=== PATIENT | male | born 1940 | race Caucasian/White ===

== ENCOUNTER → 2019-11-25 09:19 | Outpatient (BNVA) | payer MEDICARE, OTHER, SELFPAY | PROVIDERS: Family Provider Nurse Practitioner; PCP Nurse Practitioner; Visit Provider Nurse Practitioner | DX: M25.559 Pain in unspecified hip (principal); E78.2 Mixed hyperlipidemia; R91.1 Solitary pulmonary nodule | CPT/HCPCS: 73502; 80053; 80061 ==

== ENCOUNTER 2019-12-01 08:28 | Outpatient (CLI) | payer MEDICARE, OTHER, SELFPAY ==
--- NOTE | 2019-12-01 08:45 | CT_ITS ---
WS: [id number] CT CHEST TECHNIQUE: Noncontrast CT of the chest with coronal and sagittal reformatted images. CLINICAL INFORMATION: 7 mm lung nodule COMPARISON: CT 01/10/2019 and 12/01/2017. Multiple prior CTs from 2017 02/05/2017 and 12/31/2016. DLP: 864.[address] scans at [facility] use at least one of these dose optimization techniques: automat ed exposure control; mA and/or kV adjustment per patient size (includes targeted exams where dose is matched to clinical indication); or iterative reconstruction. FINDINGS: Stable subsegmental atelectasis in the right middle lobe with parenchymal scarring. Similar appearing subsegmental atelectasis with parenchymal scarring involving the lingula. Stable 7 mm noncalcified n odule adjacent to the right pericardium. Stable mild narrowing of the right middle lobe bronchus with calcified hilar lymph nodes. No mediastinal or hilar lymphadenopathy. Calcified hilar and paratracheal lymph nodes. Mild aortic ca lcification. Stable low-attenuation lesions in the liver likely hepatic cysts unchanged. Normal adren al glands. CT/CT chest wo con [id number] IMPRESSION: 1. 7 mm noncalcified nodule adjacent to the right pericardium is unchanged sin ce 2017. 2. Stable subsegmental atelectasis right middle lobe with adjacent middle lobe bronchus narrowing unchanged. 3. Mild aortic calcification. 4. Multiple small hepatic cysts are unchanged. 5. No significant interval changes since January 10, 2019
== END 2019-12-01 08:29 | disposition home or self-care (01) ==
PROVIDERS: Family Provider Nurse Practitioner; PCP Nurse Practitioner; Visit Provider Nurse Practitioner
DX: R91.1 Solitary pulmonary nodule (principal); I70.0 Atherosclerosis of aorta; K76.89 Other specified diseases of liver; J98.11 Atelectasis
CPT/HCPCS: 71250

== ENCOUNTER 2021-01-17 06:00 | Outpatient (CLI) | payer MEDICARE, SELFPAY | END 2021-01-17 06:01 | disposition home or self-care (01) | LOC: LAB 12-17 15:40 | PROVIDERS: PCP Nurse Practitioner; Visit Provider Nurse Practitioner | DX: E78.2 Mixed hyperlipidemia (principal) | CPT/HCPCS: 80053; 80061; 85025 ==

== ENCOUNTER 2021-04-04 08:51 | Outpatient (CLI) | payer MEDICARE, SELFPAY ==
[2021-04-04 09:24] VITALS: BMI 26.6
--- NOTE | 2021-04-04 09:24 | NMCV_ITS ---
NM gabe perf SPECT r/s* [id number] Humza Shelley Age: 80 Gender: M : 1940 Exam Date: 04/04/2021 10:00 Ordering Phys: Lula Rivera MD ([email or web address]) Technologist: TIERA Espino Exam Location: [facility] Indications: SHORTNESS OF BREATH STRESS TEST Please see separate stress test report in [facility] for full findings IMAGE PROTOCOL Rest/Stress 1 Exercise Day Radiopharmaceutical Dose (mCi) Administration Site Administered by Rest: Tc-99m IV TIERA Newman Sestamibi Stress:Tc-99m 32.7 IV TIERA Newman Sestamibi Rest: 04-Apr-2021 60 Discovery 630 Stress: 04-Apr-2021 15 Discovery 630 Radiopharmaceutical was injected at 87 % maximum heart rate. Images obtained in supine and prone position. SPECT RESULTS Technical Quality: Excellent Raw Data Analysis: Normal Image Corrections: No attenuation or motion correction applied Summed Stress Score: 18 Summed Rest Score: 15 Summed Difference Score: 7 PERFUSION FINDINGS Large area of fixed patchy decreased tracer uptake noted in basal to distal inferior and inferoseptal wall suggestive of old myocardial infarction versus scarring. There also appeared to be moderate area of inferoseptal moderate to severe reversibility suggestive of ischemia in the inferoseptal region of the right ventricle. Large area of reversibility in mid to distal anterior apical and septal severe reversibility suggestive of ischemia in the LAD territory noted. FUNCTIONAL RESULTS (calculated via Gated SPECT) Stress Image LV EF (%): 69 Stress EDV (mL):101 TID: 1 Stress ESV (mL):31 Rest Image LV EF (%): 55 FUNCTIONAL FINDINGS: There appeared to be mid to distal anterior apical septal and inferior wall hypokinesis. IMPRESSIONS There appeared to be large area of severe ischemia noted in mid to distal anterior and anteroseptal wall suggestive of lesion in LAD territory. 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 EKG segment will documented separately. Lula Rivera MD (Electronically Signed) Final Date: 04 April 2021 16:05 S
--- NOTE | 2021-04-04 09:24 | ECG_ITS ---
[facility] Test Date: 2021-04-04 Pat Name: Humza Shelley Department: Room: Gender: Male Grants Officer: Alisha Cherry : 1940 Requested By: Fredi Pizarro Order Number: [id number] Lizet MD: FREDI PIZARRO Interpretive Statements NAME OF STUDY: EXERCISE SESTAMIBI STRESS TEST INDICATION: Chest Pain, EXERCISE DATA: The patient was exercised by Hema protocol. Baseline heart rate was 48 beats per minute. Baseline blood pressure was 120/80 millimeters of mercury. Target heart rate was 142 beats per minute. Maximum heart rate achieved was 136, which was 95 % of the target heart rate. Maximum blood pressure was 181/99 millimeters of mercury. Total exercise time was 4 minutes 5 sec. Maximum METs achieved was 7.0 , maximum VO2 was 24.5. The reason for ending the test was maximum effort achieved. The patient complained of shortness of breath during the stress test, which then resolved at the end of the test. ELECTROCARDIOGRAM: BASELINE: Sinus rhythm, normal axis, right bundle branch block otherwise no significant ST-T ST changes noted. EXERCISE: At the peak exercise level, no significant ST-T changes suggestive of ischemia noted. PVCs were noted RECOVERY: During the recovery period, heart rate dropped appropriately. No significant ST-T changes in the recovery suggestive of ischemia noted. CONCLUSION: 1. Exercise capacity poor. 2. Heart rate response was appropriate. 3. Blood pressure response was appropriate. 4. Symptoms not suggestive of ischemia. 5. Electrocardiogram portion of the stress test was not suggestive of ischemia. 6. Nuclear scan will be documented separately. Please note that due to poor exercise capacity and under achievement of METs specificity and sensitivity of the EKG portion of the stress test will be low Electronically Signed On 04-23-2021 19:16:45 CDT by FREDI PIZARRO [id number]
[2021-04-04 11:12] VITALS: BP 160/73; PULSE 99
== END 2021-04-04 08:52 | disposition home or self-care (01) ==
LOC: CDL 08:54
PROVIDERS: PCP Nurse Practitioner; Visit Provider Internal Medicine Cardiovascular Disease
DX: R07.9 Chest pain, unspecified (principal); R06.02 Shortness of breath; I25.9 Chronic ischemic heart disease, unspecified
CPT/HCPCS: 78452; 93017; A9500

== ENCOUNTER → 2022-01-13 09:27 | Outpatient (BNVA) | payer MEDICARE, SELFPAY | PROVIDERS: PCP Nurse Practitioner; Visit Provider Nurse Practitioner | DX: I10 Essential (primary) hypertension (principal); R91.1 Solitary pulmonary nodule; R94.39 Abnormal result of other cardiovascular function study | CPT/HCPCS: 80053; 80061; 84443 ==

== ENCOUNTER 2022-02-19 07:36 | Outpatient (CLI) | payer MEDICARE, SELFPAY ==
--- NOTE | 2022-02-19 08:00 | CT_ITS ---
WS: [id number] CT CHEST TECHNIQUE: Contrast enhanced CT of the chest with coronal and sagittal reformatted images. CLINICAL INFORMATION: R91.1 - Solitary pulmonary nodule COMPARISON: December 01, 2019 DLP: 784.[address] scans at [facility] use at least one of these dose optimization techniques: automated e xposure control; mA and/or kV adjustment per patient size (includes targeted exams where dose is matc hed to clinical indication); or iterative reconstruction. FINDINGS: Stable 7 mm nodule in the RIGHT pericardial fat pad. Stable mild narrowing of the right middle lobe b ronchus with calcified hilar lymph nodes. No mediastinal or hilar lymphadenopathy. Calcified hilar an d paratracheal lymph nodes. Stable subsegmental atelectasis in the right middle lobe with parenchymal scarring. Slight subsegment al atelectasis with parenchymal scarring involving the lingula unchanged. Mild aortic calcification. Stable low-attenuation lesions in the liver presumed hepatic cysts unchang ed. Normal adrenal glands. Stable 8mm lymph node in the upper abdomen unchanged. CT/CT chest w con* [id number] IMPRESSION: 1. 7 mm nodule in the RIGHT pericardial fat pad unchanged since 2017. 2. Stable subsegmental atelectasis right middle lobe with adjacent middle lobe bronchus narrowing unchanged. 4. Multiple small hepatic cysts are unchanged. 5. No significant interval changes since December 01, 2019 and January 10, 2019
== END 2022-02-19 07:37 | disposition home or self-care (01) ==
PROVIDERS: PCP Nurse Practitioner; Visit Provider Nurse Practitioner
DX: R91.1 Solitary pulmonary nodule (principal); K76.89 Other specified diseases of liver; J98.11 Atelectasis
CPT/HCPCS: 71260; Q9967

== ENCOUNTER → 2022-03-07 08:53 | Outpatient (BNVA) | payer MEDICARE, SELFPAY | PROVIDERS: PCP Nurse Practitioner; Visit Provider Internal Medicine | DX: I10 Essential (primary) hypertension (principal); E78.2 Mixed hyperlipidemia; R06.09 Other forms of dyspnea; R94.39 Abnormal result of other cardiovascular function study | CPT/HCPCS: 99214 ==

== ENCOUNTER 2022-03-28 08:52 | Observation (INO) | payer MEDICARE, SELFPAY ==
[2022-03-28] VITALS (23 sets, daily range): BP systolic 140–180; BP diastolic 79–115; PULSE 60–87; RESP 17–24; TEMP 36.7–36.8; O2SAT 93–98; BMI 28.0
--- NOTE | 2022-03-28 06:00 | XACV_ITS ---
Exam Room: 2 Ht: 175 cm Wt: 86 kg BSA: 2.07 m2 Gender: Male : 1940 Any Known Allergies: Other Exam Priority: Routine Procedure(s): Procedure Description: Diagnostic procedure Procedure Description: Coronary IVUS Procedure Description: Coronary Angiography Diagnostic Cath Status: Elective Diagnostic Findings * INDICATION: Dyspnea on exertion/ abnormal stress test. * Left main artery: Distal left main artery has 40 to 50% stenosis. IVUS was performed that showed severe distal left main stenosis with minimal luminal area of 4.5 mm2. LAD: Severe 90 to 95% ostial LAD stenosis. Has slow flow in the distal segment. Left circumflex artery small in size. Patent. Ramus: Large sized vessel. No significant stenosis. RCA: Patent. * Coronary angiography shows right dominance. Interventional Findings * Procedure detail: We engaged left main artery with XB 3.0 guide catheter. IV heparin was administered to maintain ACT above 250 s. Run-through guidewire was advanced into the distal vessel. IVUS was performed that showed severe distal left main artery stenosis with MLA of 4.5 mm2. Ostial LAD also had critical stenosis. At this time guidewire was removed and final angiogram was performed. LAD slow flow had improved after wiring. Guide catheter was removed and patient left the Assistant Auditor in a stable condition. Conclusions 1. Left main artery: Distal left main artery has 40 to 50% stenosis. IVUS was performed that showed severe distal left main stenosis with minimal luminal area of 4.5 mm2. LAD: Severe 90 to 95% ostial LAD stenosis. Has slow flow in the distal segment. Left circumflex artery small in size. Patent. Ramus: Large sized vessel. No significant stenosis. RCA: Patent. 2. Severe distal left main artery stenosis and ostial LAD stenosis. Recommendations * Will recommend heart team discussion. Patient will have appointment with CT surgery team next week for CABG discussion.. * Continue aspirin. * High intensity statin therapy. * Aggressive risk factor modification. * modification. * Outpatient cardiology follow-up in 4-week. Interventional RX Recommendation: CABG Diagnostic RX Recommendation: CABG Anticoagulation: Heparin Pressures Phase:Rest AO : 119 / 85 ( 103 ) @ 8:37:00 AM 142 / 78 ( 106 ) @ 8:53:00 AM 110 / 67 ( 86 ) @ 8:58:00 AM Clinical Evaluation EBL: 5mL-10mL Procedural Details Procedure Consent Obtained. Pre-Procedure Time Out. Identified patient by full name and date of as verbalized by the patient/guarantor. Does the consent match the physician's order: Yes. Accurate & Complete Informed Consent: Yes. Inpatient/Outpatient History & Physical on Chart: Yes. If H&P is completed, is and addenduem needed: No. Visualize and Verify Site with Patient/Guarantor: N/A. Relevant Radiology Images available: Yes. The risks, benefits, and alternatives of sedation and/or procedure were discussed by physician. The patient agrees to continue. Procedure started. [facility] Clinical Fraility Score: 3: Managing Well. Assistant Auditor Indications: Worsening Angina. Chest Pain Symptom Assessment: Typical Angina Symptoms. Cardiovascular Instability: No. Correct patient, site and procedure confirmed by cath team. PERRLA. Strong, equal hand dermatologist managing partner bilaterally. Lungs clear x 5 lobes. IV Site on Arrival: 18 gauge in the right anticubital. IV Fluids: 0.9% NaCl at KVO. 0 mL infused prior to director of cath lab. Pre Procedural Pulses: bilateral dorsalis pedis was 3+. Pre Procedural Pulses: bilateral posterior tibial was 3+. Pre Procedural Pulses: bilateral radial was 3+. Oxygen started at 2liters/min via nasal canula. right groin was prepped with chloroprep then draped in the usual sterile fashion. right radial was prepped with chloroprep then draped in the usual sterile fashion. Physician notified. Baseline sample Acquired. HR: 78 BPM. Equipment: 6F - Radial. Cardiac Cath Pack. ACIST Manifold Kit Model BT 2000. Heparinized Saline (2 units/mL), 1000 mL bag. Physician arrived. Physician scrubbed in. Immediate Pre-Procedure Time Out. Correct Patient: Yes; Correct Procedure: Yes; Correct Site: Yes; Correct Patient Position: Yes; Correct Supplies: Yes; Dried Flammable Prep: Yes; Blood Products Available: N/A. Lidocaine 1% infiltrated to the right radial. Arterial access obtained. A 5 wolof TIG catheter in over the standard wire. Multiple views taken of left coronary artery. Catheter redirected to the RCA. Multiple views taken of right coronary artery. Catheter removed over the 0.035 260cm stiff angled glidewire. 6 wolof XB 3 guide catheter was inserted over the wire. Runthrough guidewire was advanced through the guide catheter to lesion in the Ostial LAD. IVUS catheter in over the Runthrough guidewire to the LAD. IVUS images of the Ostial LAD obtained. IVUS catheter out over the Runthrough guidewire. Dr. Rowland scrubbed out to view IVUS run. Dr. Rowland scrubbed back in. IVUS catheter in over the Runthrough guidewire to the LAD. IVUS images of the Ostial LAD obtained. IVUS catheter out over the Runthrough guidewire. Cine of the LAD performed. Guide catheter out. Dr. Rowland scrubbed out. A TR Band was successful obtaining hemostatsis at the Right Radial artery insertion site. TR band placed. Hemostasis obtained. Post Procedure: Pulses reassessed and unchanged. PERRLA. Strong, equal hand dermatologist managing partner bilaterally. No VTE prophylaxis required. Medication's Wasted: Lidocaine 1% = 3 mL. Medication's Wasted: Nitro = 49.8 mg. Medication's Wasted: Heparin = 4000 units. Total IV fluids: 58 mL. Post-op diagnosis: Critical Ostial LAD stenosis, Mod-Severe Distal LM stenosis. Complications: none. Estimated blood loss: 5mL-10mL. Responsiveness - Normal response to verbal stimuli; alert and oriented, PERRLA. Airway - Unaffected, no intervention required; spontaneous ventilation. Circulation: W/N/L, pulses unchanged. Nausea/Vomiting: No. Procedure completed. Patient transferred by wheelchair to ICU. Vital chart was stopped. Access Site Site: Right Radial artery Sheath Size: 6 Fr Hemostasis Method: TR Band Hemostasis Success: Successful Procedure Medications Start: 7:30 AM Stop: 7:30 AM Medication: Versed Amount: 1 mg Route: I.V. Start: 7:30 AM Stop: 7:30 AM Medication: Fentanyl Amount: 50 mcg Route: I.V. Start: 7:35 AM Stop: 7:35 AM Medication: Nitrogylcerin Amount: 200 mcg Route: I.A. Start: 7:37 AM Stop: 7:37 AM Medication: Heparin Amount: 5000 units Route: I.V. Start: 7:51 AM Stop: 7:51 AM Medication: Heparin Amount: 2000 units Route: I.V. Start: 8:00 AM Stop: 8:00 AM Medication: Heparin Amount: 1000 units Route: I.V. I, the attending physician, have reviewed and verified all procedure medications. Yes, all medications given per verbal order History/Risk Factors Hypertension: Yes Dyslipidemia: Yes Peripheral Arterial Disease (PAD): No Myocardial Infarction (RI): No Obesity: No Renal Disease: No Tobacco Use: Never Prior Interventions PCI: No CABG: No Valve Surgery: No Report Signatures Finalized by Mark Rowland MD on 04/02/2022 10:18 AM
[2022-03-28 07:07] LABS: Anion Gap 15.3 (5-19); Blood Urea Nitrogen 17 mg/dL (8-23); Calcium 10.2 mg/dL (8.5-10.5); Carbon Dioxide 24 mmol/L (22-29); Chloride 102 mmol/L (98-107); Glucose 147 mg/dL (65-115); Osmolality Calculated 288 mOsm/kg (285-295); Potassium 4.3 mmol/L (3.5-5.1); Sodium 137 mmol/L (136-145)
--- NOTE | 2022-03-28 07:30 | W.PM.OPSUD ---
Surgery/Procedure H&P Update DATE OF PROCEDURE: March 28, 2022 DATE H&P PERFORMED: 03/07/22 H&P UPDATE INFORMATION: I have reviewed H&P completed within last 30 days, I have examined patient prior to procedure and No changes to prior documentation PREOP DIAGNOSIS: Dyspnea on exertion/ abnormal stress test PRIMARY INDICATION FOR PROCEDURE: Dyspnea on exertion/ abnormal stress test PLANNED PROCEDURE: Operation Date: 03/28/22 07:00 Proposed Procedures p Left Cardiac Catheterization 38989,R94.39(Left) - Mark Rowland M.D Possible percutaneous coronary intervention PATIENT REASSESSED PRIOR TO SEDATION, WITH NO CHANGE NOTED: Yes PHYSICAL EXAM: alert, oriented x 3, clear to auscultation bilaterally and regular rate & rhythm AIRWAY EVAL/ANESTHESIA PLAN: ASA III, Local Anesthesia, Risks, benefits & alternatives of sedation and/or procedure discussed and Patient agrees to continue as planned ADDITIONAL INFORMATION: Moderate sedation
[2022-03-28 07:33] LABS: Basophils % 0.2 %; Hematocrit 49.9 % (42.0-52.0); Hemoglobin 16.4 g/dL (11.7-16.6); Lymphocytes # 0.9 10^3/uL (0.8-4.8); Lymphocytes % 8.2 %; Mean Corpuscular HGB Conc 32.9 g/dL (30.0-36.0); Mean Corpuscular Hemoglobin 29.5 pg (28.0-34.0); Mean Corpuscular Volume 89.7 fl (80-94); Mean Platelet Volume 10.3 fL (7.4-10.4); Monocytes # 0.2 10^3/uL (0.2-0.9); Monocytes % 1.6 %; Neutrophils # 9.48 10^3/uL (1.8-7.7); Neutrophils % 89.4 %; Nucleated Red Blood Cells % 0 %; Platelet Count 254 10^3/cmm (130-400); Red Blood Count 5.56 10^6/uL (4.1-5.3); White Blood Count 10.6 10^3/uL (4.0-10.0)
--- NOTE | 2022-03-28 08:30 | PC.NURSE ---
From labor operator. received pt from labor operator via wheelchair. Pt has a 25 mls of air in the TR band. no hematoma, swelling or bleeding. neurovascular check, radial artery palpable +3. pt denies any pain or discomfort right now. vs monitored. instructed pt on acitvity restrictions on his right arm such as no pulling, pushing orlifting any weights with his right arm. call light provided. family at bedside.
--- NOTE | 2022-03-28 09:23 | USCV_ITS ---
Humza Shelley Age: 81 Gender: M : 1940 Exam Date: 03/28/2022 09:45 Ordering Phys: Mark Rowland M.D ([email or web address]) Technologist: SHEA [place] [facility] [place]: dyspnea on exertion BP: 176 / 97 HR: 81 Rhythm: Sinus Technical Quality: Adequate MEASUREMENTS (Male / Female) Normal Values 2D ECHO LV Diastolic Diameter PLAX 4.5 cm 4.2 - 5.9 / 3.9 - 5.3 cm LV Systolic Diameter PLAX 2.7 cm IVS Diastolic Thickness 0.9 cm 0.6 - 1.0 / 0.6 - 0.9 cm IVS Systolic Thickness 1.6 cm LVPW Diastolic Thickness 1.4 cm 0.6 - 1.0 / 0.6 - 0.9 cm LVPW Systolic Thickness 1.7 cm LVOT Diameter 2.0 cm LV Ejection Fraction 2D Teich 69.5 % LV Ejection Fraction MOD 2C 72.3 % LV Ejection Fraction 2C AL 71.1 % LA Diameter 3.3 cm LA Width 3.1 cm LA Height 4.1 cm RA Width 3.2 cm RA Height 4.2 cm Aorta at Sinotubular Diameter 2.4 cm M-MODE Aortic Annulus Diameter 2.9 cm LA Ao Ratio MM 1.1 MV E Point Septal Separation 0.6 cm DOPPLER AV Peak Velocity 186.3 cm/s LVOT Peak Velocity 122.0 cm/s AV Area Cont Eq vti 2.6 cm squared AV Area Cont Eq pk 2.1 cm squared MV Peak Velocity 114.0 cm/s MV Area PHT 5.0 cm squared Mitral E to A Ratio 0.6 MV E' Velocity 40.0 cm/s Mitral E to MV E' Ratio 9.4 Mitral E to LV E' Lateral Ratio 8.5 Mitral E to LV E' Septal Ratio 10.5 TR Peak Velocity 181.5 cm/s TR Peak Gradient 13.2 mmHg TR Mean Velocity 188.1 cm/s TR Mean Gradient 14.0 mmHg TR Velocity Time Integral 59.6 cm TV Peak E Velocity 48.0 cm/s Right Atrial Pressure 8.0 mmHg Pulmonary Artery Systolic Pressu 21.2 mmHg PV Peak Velocity 108.0 cm/s RV Acceleration Time 0.1 s RV Ejection Time 0.2 s RV AcT/ET 0.4 FINDINGS Left Ventricle Left ventricle is normal in size. LV systolic function is normal with EF of 55 to 60%. No regional wall motion abnormalities are seen. Grade 1 diastolic dysfunction. Right Ventricle Normal in size and function Right Atrium Normal in size Left Atrium Normal in size Mitral Valve Structurally normal mitral valve. Trace mitral regurgitation. Aortic Valve Aortic valve is thickened. No significant aortic stenosis or regurgitation. Moderate aortic regurgitation. Tricuspid Valve Trace tricuspid regurgitation. Insufficient TR jet to calculate RVSP. Pulmonic Valve Not well-visualized Pericardium Normal Aorta Normal in size IVC CONCLUSIONS LV systolic function is normal with EF of 55-60%. No regional wall motion abnormalities are seen. Grade 1 diastolic dysfunction. Trace mitral regurgitation. Aortic valve is thickened. Moderate aortic regurgitation. Trace tricuspid regurgitation. No comparison studies are available Mark Rowland MD (Electronically Signed) Final Date: 02 April 2022 09:38 S
[2022-03-28] MEDS: metoprolol tartrate 50 mg Tablet PO (09:43)
[2022-03-28] MEDS: amlodipine 5 mg Tablet PO (09:43)
[2022-03-28] MEDS: sodium chloride 0.9% 1,000 ML 100 ML IV (09:45)
--- NOTE | 2022-03-28 11:49 | P.SS_ITS ---
Short Stay Summary Providers Date of Admit/Discharge: 03/31/22 Attending Provider: Mark Rowland M.D Primary Care Provider: SENDY Hunter Chief Complaint: R94.39 HPI History of Present Illness Humza Shelley is a 81 year old male with past medical history of hypertension and hyperlipidemia who has been following with cardiology clinic for chest discomfort episodes and dyspnea on exertion.? He had stress test done last year which showed a large area of ischemia in LAD territory.? He says that was not followed up.? Patient has significant dyspnea on exertion and gets lower extremity edema. Review of Systems Const: Reports: fatigue Card: Reports: swelling of feet/ankles (minimal) and dyspnea on exertion; Denies: chest pain, palpitations, irregular heart rhythm, edema, lightheadedness, syncope, pre-syncope, orthopnea or leg pain with exertion Resp: Denies: dyspnea, productive cough or wheezing Musc: Reports: back pain; Denies: neck pain or joint pain Neuro: Denies: headache(s) or dizziness Psych: Denies: anxiety, depression, suicidal ideation or homicidal ideation Carlito/Lymph: Reports: easy bruising and easy bleeding Home Meds/Allergies Home Medications and Allergies Home Medications Medication Instructions Recorded Confirmed Type albuterol sulfate 90 mcg/actuation 2 puff inhalation QID 11/25/19 03/28/22 History aerosol inhaler (ProAir HFA) clobetasol 0.05 % topical ointment 1 applic topical BID 03/11/21 03/28/22 History garlic 300 mg PO DAILY 09/20/21 03/28/22 History Allergies Allergy/AdvReac Type Severity Reaction Status Date / Time Penicillins Allergy rash Verified 03/28/22 06:47 wasp venom Allergy Unknown Unknown Uncoded 03/28/22 06:47 shellfish Allergy itching.cou Uncoded 03/28/22 06:47 gh PFSH Acute PFSH: Medical History Hx of bee sting allergy Hypertension Mixed hyperlipidemia Solid nodule of lung 6 mm to 8 mm in diameter Stable 7 mm nodule or lymph node within the right epipericardial fat December 2017 Surgical History History of lipoma Removal back and neck Family History Other CVA (cerebrovascular accident due to intracerebral hemorrhage) Heart disease Denies family history of Bleeding disorder Social History Smoking and tobacco status: never smoked Second hand smoke exposure: No Smoking risk assessment/counseling performed?: No Alcohol intake: never Desire information about alcohol rehabilitation?: No Counseling given: No Desire information about substance/drug rehabilitation?: No Counseling given: No Caregiver/support person: No Lives independently: Yes Household members: family Housing: House Marital status: service: No Current occupational status: employed History of recent travel: No Current gender identity: Male Vitals/I&O/Wt Last Vital Signs Temp 98.0 F 03/28/22 06:45 Pulse 75 03/28/22 11:00 Resp 18 03/28/22 11:00 BP 147/87 03/28/22 11:00 Pulse Ox 96 03/28/22 11:00 O2 Del Method 03/28/22 11:00 03/27/22 03/28/22 03/28/22 22:59 06:59 14:59 Intake Total 236 / 236 Output Total 450 / 450 Balance -214 / -214 Weight last 48 hrs Weight 190 lb Physical Exam Narrative: GENERAL: Patient is alert, awake and oriented x3. [] NECK: No jugular vein distension. [] HEENT: No cyanosis. No icterus. No pallor. [] HEART: Regular S1 and S2. No murmur, rub or gallop. [] LUNGS: Clear to auscultate bilaterally. [] ABDOMEN: Soft, nontender and nondistended. Positive bowel sounds. No guarding, rebound or tenderness. [] CENTRAL NERVOUS SYSTEM: Grossly nonfocal. [] EXTREMITIES: Lower extremities with 1+ edema bilaterally. Pulses palpable in the lower extremities, both dorsalis pedis and posterior tibial. [] Hospital Course Hospital Course Coronary angiogram was performed that showed critical 95% ostial LAD stenosis. On IVUS, distal left main artery had severe stenosis as well. There was very slow flow in the distal LAD however after wiring for IVUS, flow improved. Patient stayed stable post procedure. Patient blood pressure was elevated. We started him on amlodipine and metoprolol. Patient will be seen by CT surgery as outpatient. We will try to set up appointment with Dr. Mckee as soon as possible. He is already informed. 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 echo complete * [id number] Routine Ultrasound 03/28/22 09:23 Taken Discharge Plan Discharge Patient Disposition: Home Condition: Stable Prescriptions: New amlodipine 5 mg Tablet 5 mg PO DAILY Qty: 90 3RF metoprolol tartrate 50 mg Tablet 50 mg PO BID@0900,2100 Qty: 120 2RF Continued albuterol sulfate [ProAir HFA] 90 mcg/actuation HFA aerosol inhaler 2 puff INHALATION QID clobetasol 0.05 % ointment 1 applic topical BID Rx Instructions: to leg as needed no more than 3 wks/mo garlic Tablet 300 mg PO DAILY nitroglycerin 0.4 mg tablet, sublingual 0.4 mg sublingual Q5M PRN (Reason: chest pain) Qty: 25 0RF Rx Instructions: do not exceed 3 doses per episode aspirin [Adult Low Dose Aspirin] 81 mg tablet,delayed release (DR/EC) 81 mg PO DAILY Qty: 90 3RF rosuvastatin 20 mg tablet 20 mg PO DAILY Qty: 90 3RF diphenhydramine HCl [Benadryl] 25 mg capsule 25 mg PO DIRECTED Qty: 2 0RF Rx Instructions: Take 2 tabs at 6am on Discontinued prednisone 50 mg tablet 50 mg PO DIRECTED Qty: 3 0RF Rx Instructions: Take one tab at 6pm on , one tab at 12(midnight) on , one tab at 6am on Discharge Orders: Discharge Order (Routine); Ordered 03/28/22 Ordered By: Mark Rowland Referrals: Mark Rowland M.D [Physician] - 1 month Angel Mckee MD [Physician] - (You will have a visit with the cardiothoracic surgeon on at 0830.) Blossom Rapp FNP [Nurse Practitioner] - 7-10 days (You will have an appointment at the Heart care services on ThursdayApr 04 at 1115.) Discharge Diet: Cardiac Discharge Activity: Increase activity as tolerated Patient Instructions: Metoprolol (By mouth), Amlodipine (By mouth), CABG (Coronary Artery Bypass Graft) (DC), Post Angiogram Home Care Instructions Activity Restrictions/Additional Instructions: Please do not lift more than 5 pounds of weight for the next 5 days Attestations Medical Necessity Statement*: Care not expected to cross 2 midnights. Patient came as an outpatient for coronary angiogram and is getting discharged postprocedure. Time Spent in Patient Care*: greater than 30 min Quality Metrics Clinical Quality Measures: [ No reported AMI, CVA or VTE this stay ] Coding Level of Care Code Acute User Interface Developer for Kim Wright
--- NOTE | 2022-03-28 11:51 | PC.NURSE ---
TR band removal All air out in tr band. No hematoma, swelling or bleeding. radial pulse is palpable. dr moran family at bedside. discussion regarding possible cabg. outpt follow-up w/surgeon. family and pt verbalizes understanding.
--- NOTE | 2022-03-28 12:40 | PC.NURSE ---
pt wants a meds to bed called
--- NOTE | 2022-03-28 13:21 | PC.CHAP ---
Pastoral Care Encounter/Spiritual Assessment Type of Contact [] Declined job training supervisor visit [] Patient/Family/Request visit [] Outpatient visit [] Follow-up visit [] Physician referral [] Code/Alert [x] Routine visit [] Staff referral [] Actively dying [] Patient sleeping [] Family support [] [] Out of room [] Palliative care [] [] Receiving care in room [] Pre-surgical visit [] Trauma [] Long length of stay [x] ICU visit [] Other: Relational/Emotional Strength [] Patient feels connected with others/family/visitors/staff [] Distress [] Loneliness/isolation [] Abandonment Spirituality of Patient [] Person of Kristine [] Attends Nondenominational of their Kristine [] Believes in Prayer [] Reads Bible or Uatsdin materials [] There are Spiritual issues to be addressed Senior Project Coordinator Interventions [x] Prayer [] Active listening [] Non-anxious presence [] Spiritual/emotional support [] Crisis/trauma care [] Spiritual counseling [] Bereavement support [] Provided bereavement packet [] Provided Bible/devotional materials [] Provided toy/stuffed animal, coloring book to patient or family member [] Provided Communion [] Anointing/[place] [] Salvation [x] Completed spiritual assessment [] Other: Impact on Illness or Injury [] Angry [] Fearful [] Anxious [] Often cries [] Exhaustion [] Unable to work [] Unable to attend mandaen [] Unable to walk/stand [] Unable to read [] Unable to drive [] Unable to eat/drink [] Unable to sleep [] Unable to be with family [] Patient intubated [] Other: Summary Time spent with patient
== END 2022-03-28 14:06 | disposition home or self-care (01) ==
LOC: ICU 08:52
PROVIDERS: Admitting Provider Internal Medicine; PCP Nurse Practitioner; Visit Provider Internal Medicine
DX: I25.10 Atherosclerotic heart disease of native coronary artery without angina pectoris (principal); R94.39 Abnormal result of other cardiovascular function study; I10 Essential (primary) hypertension; E78.5 Hyperlipidemia, unspecified; E78.2 Mixed hyperlipidemia
CPT/HCPCS: 36415; 80048; 85025; 92978; 93306; 93454; 94760; 96360; 99152; 99153; C1753; C1769; C1887; C1894; G0378; J1644; J2250; J3010; J3490; J7030; Q0163; Q9967

== ENCOUNTER → 2022-04-01 14:00 | Outpatient (BNVA) | payer MEDICARE, SELFPAY | PROVIDERS: PCP Nurse Practitioner; Visit Provider Thoracic Surgery (Cardiothoracic Vascular Surgery) | DX: I25.10 Atherosclerotic heart disease of native coronary artery without angina pectoris (principal); I25.84 Coronary atherosclerosis due to calcified coronary lesion; I10 Essential (primary) hypertension | CPT/HCPCS: 99203; 99205 ==

== ENCOUNTER → 2022-04-04 12:09 | Outpatient (BNVA) | payer MEDICARE, SELFPAY | PROVIDERS: PCP Nurse Practitioner; Visit Provider Nurse Practitioner Family | DX: I25.10 Atherosclerotic heart disease of native coronary artery without angina pectoris (principal); I25.84 Coronary atherosclerosis due to calcified coronary lesion | CPT/HCPCS: 80048; 99213; 99214 ==

== ENCOUNTER 2022-04-10 06:48 | Outpatient (CLI) | payer MEDICARE, SELFPAY ==
--- NOTE | 2022-04-10 07:00 | USR_ITS ---
PROCEDURE INFORMATION: Exam: US Unlisted Ultrasound Procedure Exam date and time: 04/10/2022 7:23 AM Age: 81 years old Clinical indication: Screening exam; Additional info: Cad TECHNIQUE: Imaging protocol: Unlisted ultrasound procedure (eg, diagnostic, interventional). COMPARISON: No relevant prior studies available. FINDINGS: Procedural imaging: Focused ultrasound examination of the right great saphenous vein demonstrates a compressible vein measuring 2 mm in the proximal thigh, 2 mm in the midthigh, 2 mm in the distal thigh, and 2 mm in the proximal lower leg. US/CV venous mapping [facility] [id number] IMPRESSION: Patent right great saphenous vein with diameter as described above.
== END 2022-04-10 06:49 | disposition home or self-care (01) ==
LOC: RAD 06:50
PROVIDERS: PCP Nurse Practitioner; Visit Provider Thoracic Surgery (Cardiothoracic Vascular Surgery)
DX: Z01.810 Encounter for preprocedural cardiovascular examination (principal); R94.39 Abnormal result of other cardiovascular function study
CPT/HCPCS: 93970

== ENCOUNTER 2022-04-15 14:12 | Inpatient (IN) | payer MEDICARE, SELFPAY ==
[2022-04-10 09:19] VITALS: BMI 28.5
[2022-04-10 10:30] LABS: Add Urine Microscopic? NO; Charge for UA Resulting for Rev
[2022-04-10 10:37] LABS: Bilirubin Urine Neg (Negative); Blood Urine Neg (Negative); Glucose Urine UA Norm (Normal); Ketones Urine Negative (Negative); Leukocyte Esterase Urine Negative (Negative); Nitrate Urine Negative (Negative); Protein Urine Neg (Negative); Urine Appearance Clear (CLEAR); Urine Color Yellow (Yellow); Urobilinogen Urine Norm (Negative); pH Urine 7 (5-7)
[2022-04-10 10:37] LABS: Basophils # 0.1 10^3/uL (0.0-0.1); Basophils % 0.4 %; Eosinophils # 0.3 10^3/uL (0.0-0.8); Eosinophils % 2.8 %; Hematocrit 47.4 % (42.0-52.0); Hemoglobin 15.2 g/dL (11.7-16.6); Lymphocytes # 1.2 10^3/uL (0.8-4.8); Lymphocytes % 10.5 %; Mean Corpuscular HGB Conc 32.1 g/dL (30.0-36.0); Mean Corpuscular Hemoglobin 29.6 pg (28.0-34.0); Mean Corpuscular Volume 92.2 fl (80-94); Mean Platelet Volume 10.3 fL (7.4-10.4); Monocytes # 0.8 10^3/uL (0.2-0.9); Monocytes % 7.1 %; Neutrophils # 8.98 10^3/uL (1.8-7.7); Neutrophils % 78.2 %; Nucleated Red Blood Cells % 0 %; Platelet Count 236 10^3/cmm (130-400); Red Blood Count 5.14 10^6/uL (4.1-5.3); Red Cell Distribution Width 13.1 % (12.1-15.1); White Blood Count 11.5 10^3/uL (4.0-10.0)
--- NOTE | 2022-04-10 10:44 | SUR.PREOP ---
chlorhexidine mouthwash and bactroban nasal ointment called to [facility] in and patient instructed to pick and shovel man rx
[2022-04-10 10:45] LABS: INR 0.99 (0.8-1.2); Partial Thromboplastin Time 28.9 SECONDS (23.9-36.7)
--- NOTE | 2022-04-10 10:48 | ANES.PREANE2 ---
Pre-Anesthetic Assessment Height/Weight: Height 1.75 m Weight 87.543 kg Preop Diagnosis: Coronary artery disease Operation Date: 04/15/22 07:00 Proposed Procedures p CABG 52563,I25.10(Not Applicable) - Angel Mckee MD Familial anesthetic complications: None Social No alcohol and No tobacco Exam alert, oriented x 3, clear to auscultation bilaterally and regular rate & rhythm Airway Mallampati: Class II Dentition: full Pulmonary R lobe collapsed d/t breathing in farm dust. CV/HEM Coronary Artery Disease and Hypertension None reported Hepatic None reported GI None reported Metabolic Hyperlipidemia Musc/skel Lower Back Pain Neuropsych None reported Anesthetic Plan ASA status: 4 Anesthesia: General Risk of > 500 ml blood loss (7ml/kg in children): Yes, adequate IV access and fluids planned Medications/Allergies Home Medications Medication Instructions Recorded Confirmed Last Taken Type nitroglycerin 0.4 mg sublingual 0.4 mg sublingual Q5M PRN chest 01/17/21 04/10/22 Unknown Rx tablet pain #25 tabs aspirin 81 mg tablet,delayed 81 mg PO DAILY #90 tabs 03/07/22 04/10/22 03/28/22 05:30 Rx release (Adult Low Dose Aspirin) rosuvastatin 20 mg tablet 20 mg PO DAILY #90 tabs 03/07/22 04/10/22 03/28/22 05:30 Rx amlodipine 5 mg tablet 5 mg PO DAILY #90 tabs 03/28/22 04/10/22 Unknown Rx metoprolol tartrate 50 mg tablet 50 mg PO BID@0900,2100 #120 tabs 03/28/22 04/10/22 Unknown Rx Allergies Allergy/AdvReac Type Severity Reaction Status Date / Time Penicillins Allergy rash Verified 04/04/22 09:39 wasp venom Allergy Unknown Unknown Uncoded 04/04/22 09:39 shellfish Allergy itching.cou Uncoded 04/04/22 09:39 [facility] Anesthesia Medical History (Updated 04/10/22 @ 09:20 by Audra Hutson) Hx of bee sting allergy Hypertension Mixed hyperlipidemia Solid nodule of lung 6 mm to 8 mm in diameter Stable 7 mm nodule or lymph node within the right epipericardial fat December 2017 Surgical History (Updated 04/10/22 @ 09:18 by Audra Hutson) History of lipoma Removal back and neck Family History Other CVA (cerebrovascular accident due to intracerebral hemorrhage) Heart disease Denies family history of Bleeding disorder Social History Smoking and tobacco status: never smoked Second hand smoke exposure: No Smoking risk assessment/counseling performed?: No Alcohol intake: never Desire information about alcohol rehabilitation?: No Counseling given: No Desire information about substance/drug rehabilitation?: No Counseling given: No Caregiver/support person: No Lives independently: Yes Household members: family Housing: House Marital status: service: No Current occupational status: employed History of recent travel: No Current gender identity: Male Data Anesthesia : 04/10/22 10:08 04/10/22 10:08 Short CBC 04/10/22 Range/Units 10:08 WBC 11.5 H (4.0-10.0) 10^3/uL Hgb 15.2 (11.7-16.6) g/dL Hct 47.4 (42.0-52.0) % MCV 92.2 (80-94) fl Plt Count 236 (130-400) 10^3/cmm Neut % (Auto) 78.2 % Neut # (Auto) 8.98 H (1.8-7.7) 10^3/uL Urine 04/10/22 Range/Units 10:17 Urine Color Yellow (Yellow) Urine Appearance Clear (CLEAR) Urine pH 7 (5-7) Ur Specific [place] 1.010 (1.005-1.030) Urine Protein Neg (Negative) Urine Glucose (UA) Norm (Normal) Urine Ketones Negative (Negative) Urine Nitrate Negative (Negative) Urine Bilirubin Neg (Negative) Ur Leukocyte Esterase Negative (Negative) Coags 04/10/22 10:08 PT 13.40 INR 0.99 APTT 28.9 Cardiac Studies: Echocardiogram 03/28/22 Sestamibi Stress Test (Cardiology) 04/04/21
[2022-04-10 11:22] LABS: Alanine Aminotransferase 26 U/L (0-41); Albumin Level 4.2 g/dL (3.5-5.2); Alkaline Phosphatase 107 U/L (40-130); Anion Gap 11.5 (5-19); Aspartate Amino Transferase 22 U/L (0-40); Blood Urea Nitrogen 18 mg/dL (8-23); Carbon Dioxide 29 mmol/L (22-29); Chloride 99 mmol/L (98-107); Glucose 84 mg/dL (65-115); Osmolality Calculated 281 mOsm/kg (285-295); Potassium 4.5 mmol/L (3.5-5.1); Sodium 135 mmol/L (136-145); Thyroid Stimulating Hormone 1.12 uIU/mL (0.27-4.20); Total Bilirubin 0.4 mg/dL (0.15-1.2); Total Protein 7.2 g/dL (6.6-8.7)
[2022-04-10 11:54] LABS: Free T4 Free Thyroxine 1.19 ng/dL (0.82-1.77)
[2022-04-15] VITALS (51 sets, daily range): BP systolic 78–180; BP diastolic 38–89; PULSE 50–77; RESP 12–18; TEMP 36.7–38.1; O2SAT 96–100
[2022-04-15 05:29] LABS: Glucose Point of Care 80 mg/dL (70-110)
[2022-04-15] MEDS: sodium chloride 0.9% 1,000 ML 30 ML IV (05:32)
--- NOTE | 2022-04-15 06:20 | W.PM.OPSUD ---
Surgery/Procedure H&P Update DATE OF PROCEDURE: April 15, 2022 DATE H&P PERFORMED: 04/01/22 H&P UPDATE INFORMATION: I have reviewed H&P completed within last 30 days, I have examined patient prior to procedure and No changes to prior documentation PREOP DIAGNOSIS: Coronary artery disease PRIMARY INDICATION FOR PROCEDURE: Left main coronary artery stenosis with high-grade proximal LAD stenosis PLANNED PROCEDURE: Operation Date: 04/15/22 07:00 Proposed Procedures p CABG 73415,I25.10(Not Applicable) - Angel Mckee MD
[2022-04-15] MEDS: vancomycin 1,250 MG/250 ML PIGGYBACK 200 MG IV (07:10)
[2022-04-15] MEDS: sodium bicarbonate 1 mEq/mL SDV 50mL 0.7 MEQ IRRIGATION (07:44)
[2022-04-15] MEDS: heparin, porcine 1,000 unit/mL INJ 10 mL 1750 UNIT IRRIGATION (07:44)
[2022-04-15] MEDS: vancomycin 1,000 MG SDV 3000 MG IRRIGATION (07:44)
--- NOTE | 2022-04-15 08:12 | XRR_ITS ---
PROCEDURE INFORMATION: Exam: XR Chest Exam date and time: 04/15/2022 2:25 PM Age: 81 years old Clinical indication: Device placement; Other: Status post open heart. Prior surgery; Surgery date: Post-operative (0-2 days); Additional info: Status post open heart. In or room 1. Will call when ready TECHNIQUE: Imaging protocol: Radiologic exam of the chest. Views: 1 view. COMPARISON: CT chest w con* [id number] 02/19/2022 8:11 AM FINDINGS: Tubes, catheters and devices: Sun-Rafael catheter in expected positioning. Left chest tube terminates at the left lung apex. Enteric tube terminates in the stomach. Endotracheal tube in proper positioning above the letha. Lungs: No consolidation. Pleural spaces: No pleural effusion. No pneumothorax. Heart/Mediastinum: No cardiomegaly. Bones/joints: Sternotomy wires noted. Visualized osseous structures are intact. XR/XR chest 1V portable [id number] IMPRESSION: 1. No acute findings. 2. Proper positioning of support apparatus.
--- NOTE | 2022-04-15 14:37 | PC.NURSE ---
Pt here from OR with OR team ET tube, OG tube noted. SWAN/central line to the rigth IJ. grace to right wrist. peripheral IV noted bilaterally. scott wrap to the right leg. wound vac to sternum. Chest tubes noted to atrium and cole to gravity.
[2022-04-15] MEDS: sodium chloride 0.9% 1,000 ML 75 ML IV (15:32)
[2022-04-15] MEDS: albumin 12.5 GM/250 ML VIAL IV ×5 (15:33→22:31)
[2022-04-15] MEDS: phenylephrine inj 25 MG in sodium chloride 0.9% 250 ML 36.36 MG IV (15:34)
--- NOTE | 2022-04-15 15:37 | P.OP_ITS ---
Operative Report Date of procedure: April 15, 2022 Pre-op diagnosis: Preop Diagnosis Coronary artery disease Post-op diagnosis: same Procedure done: 1. Coronary artery bypass grafting x2 (1 artery and 1 vein) utilizing in situ left internal mammary artery to left anterior descending artery and reverse evidence vein graft from aorta to the ramus artery. 2. Endoscopic right greater saphenous vein harvesting from the right thigh and leg. Pathology: none sent Surgeon: Angel Mckee Anesthesia: General Estimated blood loss (mL): 650 Estimated blood loss: 650 cc of cell salvage blood was processed and retransfused. Complications: None Findings: Left intramammary artery carried to good flow. Saphenous vein graft was of average quality. Condition: stable Disposition: ICU Brief History: Mr. Shelley is a 81-year-old gentleman with a history of increasing dyspnea with exertion and increasing fatigue. Prior imaging from last fall revealed evidence for ischemia in the LAD distribution. He underwent left heart catheterization March [address] Rowland. The study revealed a distal left main stenosis and high-grade proximal LAD stenosis. He also had a prominent ramus artery and a diminutive circumflex artery. RCA was free of disease. He was referred to consider surgery revascularization. He underwent careful outpatient preoperative evaluation. He was subsequently electively admitted for planned surgery. Details and risk of procedure were carefully and frankly discussed Mr. Shelley and family. All questions answered. Proper consents were reviewed and signed. Procedure: Details and risks of the surgery were carefully and frankly explained to the patient and the family. Particular risks of this surgery carefully reviewed with them included the possibility of , stroke, heart attack, major bleeding, infection, pneumonia, pain, organ failure, failure to benefit, early closure of the bypass grafts, prolonged hospital stay and subsequent need for further procedures. Increased risks for complications secondary to left main coronary artery disease were carefully reviewed. Patient and family understand these increased risks. All questions were answered and appropriate consents were reviewed and signed. Preoperative education for the patient and the family included both written and video materials. The patient and the family wished to proceed with plans for attempted surgical revascularization for severe coronary artery bypass. PROCEDURE: Preoperative evaluation was obtained from our Anesthesia colleagues and adequate IVs were confirmed. Mr. Shelley was then taken to the Operating Room Suite where general anesthesia was induced. Appropriate invasive monitoring lines were placed, including large bore peripheral IVs, central line, L[place]sen-Rafael catheter, [place] catheter and associated monitoring leads. After careful positioning on the Operating Room table, the patient was subsequently sterilely prepped and draped. The patient then received low-dose Heparin prior to vein harvest. Saphenous vein was harvested by endoscopic technique from the right thigh and leg. Branches were secured with ligature and clips and the vein was extracted from the tunnel without tension. It was then flushed with a Heparin and albumin solution and prepared for grafting. Vein harvest sites were irrigated, platelet poor plasma infused into the tunnel and port sites closed with 3-0 and 4-0 Vicryl Plus suture. Simultaneously with vein harvesting, a median sternotomy was created utilizing a #10 scalpel blade with hemostasis controlled with cautery. After reaching the sternal table, the sternum was divided with a reciprocating saw. Bleeding was controlled with cautery and judicious use of bone wax. Following this, the left chest wall was elevated with a Rultract retractor. The left internal mammary artery was dissected free with branches being secured with clips and cautery. The distal end was left intact. After harvesting of the mammary artery, a left pleural chest tube was then placed. The left chest wall was then lowered and moistened antibiotic-soaked laparotomy pads were placed in the wound, followed by an Ankeney retractor. The sternum was then and the pericardium opened and secured with stay sutures. After inspection, 2-0 pledgeted Ethibond sutures were placed at cannulation sites, at which time the patient was fully heparinized. Following this, the left internal mammary artery was taken down from its distal attachment, flushed with Papaverine solution, prepared for grafting and brisk flow confirmed. A soft bulldog was applied distally. Next, the heart was cannulated with a 22-Khmer aortic cannula, two-stage venous cannula and aortic root vent. The patient was subsequently placed on cardiopulmonary bypass and cooled systemically to 34 degrees. Aortic cross-clamp was then carefully placed and 4 degree Celsius cold blood cardioplegia was administered through the aortic root in antegrade fashion. Prompt diastolic arrest was obtained. Left ventricular decompression was confirmed. The heart was cooled systemically with iced saline with an insulation pad in place to protect the phrenic nerve. Throughout the cross-clamp period, at 20-30 minute intervals, antegrade blood cardioplegia was administered to maintain asystole. We then inspected the cardiac surface and coronary anatomy. Initially we isolated the ramus artery which was 2 mm in size. It was simply opened up and a portion of vein was anastomosed to this vessel in a end-to-side fashion utilizing running 7-0 Prolene suture. This vessel was then secured to a 4 mm aortotomy with 5-0 Prolene suture. The circumflex vessel was noted to be diminutive in the groove With the rewarming phase of bypass continuing, the left internal mammary artery was brought through a left anterior pericardial window into the field. The LAD was opened up in its mid one-third and was approximately 2 mm in size. The ANDREWS was then anastomosed to the LAD with a running 7-0 Prolene suture. It should be noted that all distal coronary anastomoses were performed over the appropriate size coronary shunt which was removed prior to securing the distal suture line. Following this, aortic cross-clamp was released and de-airing maneuvers were performed through the aortic root vent, as well as being confirmed by transesophageal echocardiography. Dopamine at 5 mcg per kilogram per minute was administered with good chronotropic and inotropic affect. The heart returned to spontaneous sinus rhythm and did not require cardioversion or pacing. After adequate recovery from the cross-clamp period and confirmation of cardiac stability, the patient was weaned from bypass without difficulty. Venous cannula was removed. Prior to heparin reversal, there was noted to be spontaneous bleeding from the proximal aspect of the ascending aorta to the right of midline. Amount of bleeding in this area necessitated reapplication of the cross-clamp with again readministration of cardioplegia for cardiac arrest to allow for appropriate assessment and subsequent repair of this area utilizing felt in 4-0 Prolene suture along with Surgiflo. The ascending aorta was then read pressurized to confirm adequate hemostasis. Subsequently, cross-clamp was again released allowing for return of spontaneous cardiac activity, again not requiring pacing or cardioversion. We did observed cardiac activity for several minutes to confirm good function without arrhythmia or evidence for ischemia. Mr. Shelley was again weaned from bypass without difficulty. Heparin was reversed with Protamine and confirmed by measurement of activated clotting time. The heart was then decannulated and cannulation sites were oversewn as required. Pacing wires were placed and brought through the skin and secured. Radiopaque markers were placed on the vein grafts at the level of aorta. Two mediastinal drains were placed and connected to Pleur-evac suction. The wound was carefully irrigated and hemostasis was confirmed. Ankeney retractor was removed and sponge and needle count was correct. The sternum was then reapproximated very carefully with interrupted #7 stainless steel wire with Surgicel strips used beneath the sternal table. Fascia was closed with #1 Vicryl suture with the next layers being closed with 2-0 and 3-0 suture. The skin was reapproximated carefully in a subcuticular manner. Sterile dressings were applied, followed by a vacuum-assisted dressing. The patient was carefully removed from the operating room table and transferred to the Intensive Care Unit. The family was then counseled as to the details of the procedure. Dr. Rowland was notified of our operative findings and procedure details.
--- NOTE | 2022-04-15 15:56 | ECG_ITS ---
[facility] Test Date: 2022-04-15 Pat Name: Humza Shelley Department: Room: ICU10 Gender: Male Director Emergency Services: : 1940 Requested By: Angel Mckee Order Number: [id number] Hinds MD: Yahaira Melgar M.D. Measurements Intervals [place] Rate: 50 P: 46 DE: 141 QRS: -65 QRSD: 132 T: 33 QT: 458 QTc: 418 Interpretive Statements SINUS BRADYCARDIA RIGHT BUNDLE BRANCH BLOCK ST ELEVATION, CONSIDER ANTERIOR INJURY Compared to ECG 03/18/2017 13:14:45 Right bundle-branch block now present ST (T wave) deviation now present Sinus rhythm no longer present Sinus arrhythmia no longer present Electronically Signed On 04-16-2022 9:46:01 CDT by Yahaira Melgar M.D. [id number]
[2022-04-15 16:00] LABS: Basophils # 0.1 10^3/uL (0.0-0.1); Basophils % 0.4 %; Eosinophils # 0.1 10^3/uL (0.0-0.8); Eosinophils % 0.3 %; Hematocrit 40.8 % (42.0-52.0); Hemoglobin 13.2 g/dL (11.7-16.6); Lymphocytes # 1.2 10^3/uL (0.8-4.8); Lymphocytes % 7.4 %; Mean Corpuscular HGB Conc 32.4 g/dL (30.0-36.0); Mean Corpuscular Hemoglobin 29.8 pg (28.0-34.0); Mean Corpuscular Volume 92.1 fl (80-94); Mean Platelet Volume 10.4 fL (7.4-10.4); Monocytes % 12.4 %; Neutrophils # 12.35 10^3/uL (1.8-7.7); Neutrophils % 76.2 %; Nucleated Red Blood Cells % 0 %; Platelet Count 113 10^3/cmm (130-400); Red Blood Count 4.43 10^6/uL (4.1-5.3); Red Cell Distribution Width 13.2 % (12.1-15.1); White Blood Count 16.2 10^3/uL (4.0-10.0)
[2022-04-15 16:07] LABS: ABG PCO2 35.6 mmHg (35-45); ABG PH Result 7.31 (7.35-7.45); Arterial Blood Gas Hematocrit 37.8 % (42-52); Base Excess ABG -7.5 mmol/L (-2.0-2.0); Blood Gas Allen Test Pos; Blood Gas Sample Type Arterial; Carboxyhemoglobin 0.8 %THgb (0.4-20.1); HCO3 ABG 17.9 mmol/L (22-26); Ionized Calcium Level - ABG 1.3 mmol/L (1.1-1.4); Methemoglobin 1.4 % (0.4-1.5); Oxygen Saturation ABG > 100.0; Potassium Level - ABG 5.3 mmol/L (3.5-5.0); Total Hemoglobin 12.3 g/dL (14-18)
[2022-04-15 16:28] LABS: INR 1.45 (0.8-1.2); Partial Thromboplastin Time 33.9 SECONDS (23.9-36.7)
[2022-04-15] MEDS: fentaNYL 50 mcg/mL INJ 2mL IVP (16:28)
--- NOTE | 2022-04-15 16:57 | USCV_ITS ---
Humza Shelley Age: 81 Gender: M : 1940 Exam Date: 04/15/2022 17:03 Ordering Phys: Angel Mckee MD (Andy) ([email or web address]) Technologist: SHEA Exam Location: [facility] – [place], [place] Indication: EVAL FOR PERICARDIAL EFFUSION ONLY BP: / HR: Rhythm: Sinus Technical Quality: MEASUREMENTS (Male / Female) Normal Values FINDINGS Left Ventricle Right Ventricle Right Atrium Left Atrium Mitral Valve Aortic Valve Tricuspid Valve Pulmonic Valve Pericardium Aorta IVC CONCLUSIONS This is a limited echocardiogram performed to assess for pericardial effusion. Images are of poor quality because of limited ultrasonic windows. Grossly no significant pericardial effusion is seen. Mark Rowland MD (Electronically Signed) Final Date: 15 April 2022 17:47 S
[2022-04-15 17:00] LABS: Blood Urea Nitrogen 16 mg/dL (8-23); Calcium 9.5 mg/dL (8.5-10.5); Carbon Dioxide 17 mmol/L (22-29); Chloride 114 mmol/L (98-107); Glucose 125 mg/dL (65-115); Magnesium 2.7 mg/dL (1.7-2.3); Osmolality Calculated 295 mOsm/kg (285-295); Sodium 141 mmol/L (136-145)
[2022-04-15 17:04] LABS: Anion Gap 16.2 (5-19); Potassium 6.2 mmol/L (3.5-5.1)
[2022-04-15] MEDS: aspirin 81 mg Chew Tablet PO (17:09)
[2022-04-15] MEDS: mupirocin oint 22 gm 1 APPLIC NASAL (17:10)
[2022-04-15] MEDS: chlorhexidine gluconate 0.12% Btl 473 mL 15 ML MUCOUS MEM (17:10)
[2022-04-15 18:14] LABS: Basophils % 0.3 %; Eosinophils % 0.1 %; Hematocrit 36.5 % (42.0-52.0); Hemoglobin 11.9 g/dL (11.7-16.6); Lymphocytes % 6.4 %; Mean Corpuscular HGB Conc 32.6 g/dL (30.0-36.0); Mean Corpuscular Hemoglobin 30.4 pg (28.0-34.0); Mean Corpuscular Volume 93.1 fl (80-94); Mean Platelet Volume 10.6 fL (7.4-10.4); Monocytes # 2.1 10^3/uL (0.2-0.9); Monocytes % 13.9 %; Neutrophils # 11.88 10^3/uL (1.8-7.7); Nucleated Red Blood Cells % 0 %; Platelet Count 120 10^3/cmm (130-400); Red Blood Count 3.92 10^6/uL (4.1-5.3); Red Cell Distribution Width 13.2 % (12.1-15.1); White Blood Count 15.4 10^3/uL (4.0-10.0)
[2022-04-15 18:19] LABS: Glucose Point of Care 98 mg/dL (70-110)
[2022-04-15 18:19] LABS: Glucose Point of Care 126 mg/dL (70-110)
[2022-04-15 18:19] LABS: Glucose Point of Care 108 mg/dL (70-110)
[2022-04-15 18:21] LABS: Glucose Point of Care 152 mg/dL (70-110)
[2022-04-15] MEDS: insulin regular-human 250 UNIT in sodium chloride 0.9% 250 ML IV (18:26)
[2022-04-15] MEDS: vancomycin 1,000 MG in sodium chloride 0.9% 250 ML 250 MG IV (18:33)
--- NOTE | 2022-04-15 18:35 | ANE.PACU2 ---
Inpatient post-anesthesia follow up: Airway intact: Yes (ETT) Vital signs: Temperature 98.0 F Pulse Rate 75 Respiratory Rate 12 Blood Pressure 101/59 Pulse Oximetry 97 Oxygen Delivery Me thod Mechanical Ventila tion Oxygen Flow Rate 15 Fraction of Inspir ed Oxygen 40 Hydration adequate: No Nausea and vomiting: No Pain level: 2 Mental status: Altered (Sedated) Additional Comments: Intubated/sedated to ICU, on pressors, labile.
[2022-04-15 18:47] LABS: Anion Gap 13.9 (5-19); Blood Urea Nitrogen 17 mg/dL (8-23); Calcium 8.8 mg/dL (8.5-10.5); Carbon Dioxide 19 mmol/L (22-29); Chloride 112 mmol/L (98-107); Glucose 151 mg/dL (65-115); Magnesium 2.4 mg/dL (1.7-2.3); Osmolality Calculated 292 mOsm/kg (285-295); Potassium 5.9 mmol/L (3.5-5.1); Sodium 139 mmol/L (136-145)
[2022-04-15 20:37] LABS: ABG PH Result 7.34 (7.35-7.45); Arterial Blood Gas Hematocrit 33.6 % (42-52); Base Excess ABG -5.3 mmol/L (-2.0-2.0); Blood Gas Allen Test Pos; Blood Gas Operator Identificat MONRO; Blood Gas Sample Site ART LINE; Blood Gas Sample Type Arterial; Blood Gas Tidal Volume 0.65; Carboxyhemoglobin 1.3 %THgb (0.4-20.1); Fractionated Inspired Oxygen 0.4 %; HCO3 ABG 19.9 mmol/L (22-26); HGB O2 Sat 95.8 % (95-100); Ionized Calcium Level - ABG 1.3 mmol/L (1.1-1.4); Methemoglobin 1.1 % (0.4-1.5); Oxygen Device VENT; Oxygen Saturation ABG 98.1; PO2 ABG 93.3 mmHg (80.0-100.0); Potassium Level - ABG 4.3 mmol/L (3.5-5.0)
[2022-04-15] MEDS: propofol 1,000 MG/100 ML INJ 13.13 MG IV (21:30)
[2022-04-15] MEDS: phenylephrine inj 25 MG in sodium chloride 0.9% 250 ML 42.42 MG IV (22:42)
[2022-04-15 23:41] LABS: Basophils % 0.1 %; Hematocrit 29.7 % (42.0-52.0); Hemoglobin 9.4 g/dL (11.7-16.6); Lymphocytes # 0.6 10^3/uL (0.8-4.8); Lymphocytes % 6.3 %; Mean Corpuscular HGB Conc 31.6 g/dL (30.0-36.0); Mean Corpuscular Hemoglobin 29.7 pg (28.0-34.0); Mean Corpuscular Volume 93.7 fl (80-94); Mean Platelet Volume 10.6 fL (7.4-10.4); Monocytes % 11.8 %; Neutrophils # 7.04 10^3/uL (1.8-7.7); Neutrophils % 80.5 %; Nucleated Red Blood Cells % 0 %; Platelet Count 99 10^3/cmm (130-400); Red Blood Count 3.17 10^6/uL (4.1-5.3); Red Cell Distribution Width 13.2 % (12.1-15.1); White Blood Count 8.7 10^3/uL (4.0-10.0)
[2022-04-15 23:55] LABS: Anion Gap 15.7 (5-19); Blood Urea Nitrogen 17 mg/dL (8-23); Calcium 8.6 mg/dL (8.5-10.5); Carbon Dioxide 18 mmol/L (22-29); Chloride 112 mmol/L (98-107); Glucose 140 mg/dL (65-115); Osmolality Calculated 296 mOsm/kg (285-295); Potassium 4.7 mmol/L (3.5-5.1); Sodium 141 mmol/L (136-145)
[2022-04-16] VITALS (102 sets, daily range): BP systolic 86–148; BP diastolic 53–86; PULSE 57–99; RESP 11–26; TEMP 36.6–37.8; O2SAT 82–98
[2022-04-16] MEDS: albumin 12.5 GM/250 ML VIAL IV (00:22)
[2022-04-16] MEDS: oxyCODONE-APAP 5-325 mg Tablet PO ×3 (02:27→15:45)
--- NOTE | 2022-04-16 03:39 | PC.NURSE ---
Chest tube drainage system changed. Water seal chamber completely full of water. System changed out. Suction set to [id number]. System working properly.
--- NOTE | 2022-04-16 04:00 | XRR_ITS ---
PROCEDURE INFORMATION: Exam: XR Chest Exam date and time: 04/16/2022 4:24 AM Age: 81 years old Clinical indication: Device placement; Other: Cabg; Prior surgery; Surgery date: Post-operative (0-2 days); Additional info: Pod #1 status post cabg TECHNIQUE: Imaging protocol: Radiologic exam of the chest. Views: 1 view. COMPARISON: CR XR chest 1V portable [id number] 04/15/2022 2:25 PM FINDINGS: Tubes, catheters and devices: Endotracheal tube, feeding tube, [place]-Rafael and central venous catheters, and left thoracostomy tube present. The endotracheal tube terminates 4.7 cm above the letha. Lungs: Interstitial prominence and asymmetric left-sided airspace disease. Pleural spaces: Left pleural effusion. Heart/Mediastinum: Cardiac silhouette upper limits of normal in size. Vasculature: Ectasia of the thoracic aorta. Bones/joints: Median sternotomy. Osteopenia and degenerative change. XR/XR chest 1V portable [id number] IMPRESSION: 1. Interstitial prominence and asymmetric left-sided airspace disease. 2. Left pleural effusion.
[2022-04-16 04:06] LABS: INR 1.59 (0.8-1.2)
[2022-04-16 04:07] LABS: Partial Thromboplastin Time 36.1 SECONDS (23.9-36.7)
[2022-04-16 04:08] LABS: ABG PCO2 32.8 mmHg (35-45); Arterial Blood Gas Hematocrit 25.4 % (42-52); Base Excess ABG -3.8 mmol/L (-2.0-2.0); Blood Gas Allen Test Pos; HCO3 ABG 20.5 mmol/L (22-26); Ionized Calcium Level - ABG 1.2 mmol/L (1.1-1.4)
[2022-04-16 04:10] LABS: Alveolar-Arterial Oxygen Gradi 11.3 mmHg (5-10); Blood Gas Sample Site ART LINE; Blood Gas Tidal Volume 0.65; Oxygen Device VENT
[2022-04-16 04:28] LABS: Anion Gap 13.3 (5-19); Blood Urea Nitrogen 17 mg/dL (8-23); Calcium 8.6 mg/dL (8.5-10.5); Carbon Dioxide 19 mmol/L (22-29); Chloride 112 mmol/L (98-107); Glucose 121 mg/dL (65-115); Glucose Fasting 121 mg/dL (74-106); Osmolality Calculated 293 mOsm/kg (285-295); Potassium 4.3 mmol/L (3.5-5.1); Sodium 140 mmol/L (136-145)
[2022-04-16] MEDS: fentaNYL 50 mcg/mL INJ 2mL IVP ×5 (04:28→17:23)
[2022-04-16] MEDS: sodium chloride 0.9% 1,000 ML 75 ML IV (04:29)
[2022-04-16 04:30] LABS: Basophils % 0.1 %; Hematocrit 26.2 % (42.0-52.0); Hemoglobin 8.4 g/dL (11.7-16.6); Lymphocytes # 0.7 10^3/uL (0.8-4.8); Lymphocytes % 7.7 %; Mean Corpuscular HGB Conc 32.1 g/dL (30.0-36.0); Mean Corpuscular Hemoglobin 29.7 pg (28.0-34.0); Mean Corpuscular Volume 92.6 fl (80-94); Mean Platelet Volume 10.7 fL (7.4-10.4); Monocytes # 1.4 10^3/uL (0.2-0.9); Monocytes % 15.4 %; Neutrophils # 7.05 10^3/uL (1.8-7.7); Neutrophils % 76.3 %; Nucleated Red Blood Cells % 0 %; Platelet Count 91 10^3/cmm (130-400); Red Blood Count 2.83 10^6/uL (4.1-5.3); Red Cell Distribution Width 13.2 % (12.1-15.1); White Blood Count 9.2 10^3/uL (4.0-10.0)
--- NOTE | 2022-04-16 04:39 | PC.NURSE ---
Patient off sedation since 329. Patient has spontaneous eye opening, responds to questions by moving his head. Will squeeze my hand and wiggle his toes. Weaning trial in progress.
[2022-04-16] MEDS: phenylephrine inj 25 MG in sodium chloride 0.9% 250 ML 24.24 MG IV (05:16)
[2022-04-16 05:18] LABS: ABG PCO2 34.1 mmHg (35-45); ABG PH Result 7.39 (7.35-7.45); Alveolar-Arterial Oxygen Gradi 12.2 mmHg (5-10); Arterial Blood Gas Hematocrit 25.7 % (42-52); Base Excess ABG -4.1 mmol/L (-2.0-2.0); Blood Gas Allen Test Pos; Blood Gas Sample Site ART LINE; Blood Gas Sample Type Arterial; Carboxyhemoglobin 1.3 %THgb (0.4-20.1); HCO3 ABG 20.4 mmol/L (22-26); HGB O2 Sat 94.5 % (95-100); Ionized Calcium Level - ABG 1.2 mmol/L (1.1-1.4); Methemoglobin 1.3 % (0.4-1.5); Oxygen Device VENT; Potassium Level - ABG 3.8 mmol/L (3.5-5.0); Total Hemoglobin 8.4 g/dL (14-18)
--- NOTE | 2022-04-16 05:59 | PM.PN ---
Subjective Subjective: Postop day #1 status post CABG x2. Uneventful night. Extubated about 45 minutes ago. Vital signs are stable. Chest tube output just under 500 cc since surgery. There is a moderate drop in H&H. I will transfuse packed RBCs this morning. There also is retaining fluid in the left chest on this morning's x-ray. Hopefully, with position changes this will improve. He is neurologically intact. Dopamine has been weaned to 2 mcg/kg/min. Mental effort also at lower dose. Cardiac index 3.1. Vitals/I&O/Wt Last Vital Signs Temp 98.0 F 04/15/22 05:09 Pulse 67 04/16/22 05:15 Resp 15 04/16/22 05:15 BP 113/66 04/16/22 05:15 Pulse Ox 96 04/16/22 05:15 O2 Del Method 04/16/22 05:15 O2 Flow Rate 15 04/15/22 14:40 FiO2 30 04/16/22 04:45 04/15/22 04/15/22 04/16/22 14:59 22:59 06:59 Intake Total 2590 / 2590 2135.593 / 4725.593 849.084 / 5574.677 Output Total 2485 / 2485 2631 / 5116 855 / 5971 Balance 105 / 105 -495.407 / -390.407 -5.916 / -396.323 Physical Exam Chest: OTHER: Mediastinal drains and support lines are in position. Chest wall is stable. Wound VAC in position. Resp: OTHER: Bibasilar crackles with decreased breath sounds in the bases. Cardio: OTHER: Heart tones are somewhat muffled. We did obtain an echo postoperatively yesterday evening revealing no substantial fluid collections. Cardiac silhouette is not appreciably enlarged on this morning's x-ray. He does have a left pleural effusion which is not completely drained. Hopefully with position changes this will improve. I will follow-up with a chest x-ray early afternoon. Urinary Catheter Management: Wellington: Cath Placed During This Visit: yes Reason for Continuing Indwelling Catheter: Accurate Measurement of Urinary Output in Critically Ill Patients Urinary Catheter Date of Insertion: 04/15/22 Urinary Catheter Time of Insertion: 07:00 Data : 04/16/22 03:10 04/16/22 03:10 A&P Assessment and plan (1) Status post aorto-coronary artery bypass graft: Postop day #1 status post CABG. Retained left lower effusion Plan: CBC, BMP, chest x-ray in a.m. Aspirin 81 mg daily Chest x-ray at 2 PM to assess for drainage of left pleural effusion Transfused 2 units packed RBCs I will consult my colleague Dr. Rowland for medical management to assist with Mr. Shelley's postop care as I will be off service after tomorrow morning for the remainder of the week. Status: Acute Attestations Medical Necessity Statement*: Postop day #1 status post CABG Coding Level of Care Code Acute Desk Representative for Chg Fwd Diagnoses Status post aorto-coronary artery bypass graft Z95.1
--- NOTE | 2022-04-16 06:03 | PC.NURSE ---
Patient extubated at 0515. 2L NC O2 sat 95%. Respirations 17 non-labored.
--- NOTE | 2022-04-16 06:11 | ECG_ITS ---
[facility] Test Date: 2022-04-16 Pat Name: Humza Shelley Department: Room: ICU10 Gender: Male Lapping Machine Tender: : 1940 Requested By: Angel Mckee Order Number: [id number] Hinds MD: Mark Rowland M.D. Measurements Intervals Winnie Rate: 69 P: 52 AK: 142 QRS: -26 QRSD: 146 T: 31 QT: 468 QTc: 502 Interpretive Statements SINUS RHYTHM BORDERLINE LEFT AXIS DEVIATION [QRS AXIS < -20] RIGHT BUNDLE BRANCH BLOCK [120+ ms QRS DURATION, UPRIGHT V1, 40+ ms S IN I/aVL/V4/V5/V6] Compared to ECG 04/15/2022 15:56:51 Sinus bradycardia no longer present Myocardial infarct finding no longer present ST (T wave) deviation no longer present Electronically Signed On 04-17-2022 10:43:47 CDT by Mark Rowland M.D. [email or web address] hospitalNational Medical Solutionsthe [facility]/store/OM/[id number]
[2022-04-16 06:17] LABS: Glucose Point of Care 169 mg/dL (70-110)
[2022-04-16 06:17] LABS: Glucose Point of Care 116 mg/dL (70-110)
[2022-04-16 06:17] LABS: Glucose Point of Care 125 mg/dL (70-110)
[2022-04-16 06:17] LABS: Glucose Point of Care 140 mg/dL (70-110)
[2022-04-16 06:17] LABS: Glucose Point of Care 145 mg/dL (70-110)
[2022-04-16 06:17] LABS: Glucose Point of Care 141 mg/dL (70-110)
[2022-04-16 06:17] LABS: Glucose Point of Care 160 mg/dL (70-110)
[2022-04-16 06:17] LABS: Glucose Point of Care 145 mg/dL (70-110)
[2022-04-16 06:17] LABS: Glucose Point of Care 147 mg/dL (70-110)
[2022-04-16 06:17] LABS: Glucose Point of Care 104 mg/dL (70-110)
[2022-04-16 06:17] LABS: Glucose Point of Care 123 mg/dL (70-110)
[2022-04-16] MEDS: vancomycin 1,000 MG in sodium chloride 0.9% 250 ML 250 MG IV ×2 (06:20→18:33)
--- NOTE | 2022-04-16 06:44 | PC.NURSE ---
Waste propofol 34 ml. Witnessed by second RN
--- NOTE | 2022-04-16 06:45 | PC.NURSE ---
Bedside report completed with Rose Gordon RN.
--- NOTE | 2022-04-16 06:45 | PC.NURSE ---
Dr. Mckee rounded this morning. Gave verbal order to hold fluids while transfusing blood. Continue to titrate dopamine gtt off. Will place to pull swan early afternoon.
[2022-04-16 07:29] LABS: Glucose Point of Care 103 mg/dL (70-110)
--- NOTE | 2022-04-16 08:00 | PC.NURSE ---
TAR: PRBCs infusing. Unit # [id number]. See hemodynamic flow sheet for vital signs with frequent temperatures.
[2022-04-16 08:29] LABS: Blood Gas Operator Identificat MONRO
[2022-04-16 09:46] LABS: ABG PCO2 39.6 mmHg (35-45); ABG PH Result 7.41 (7.35-7.45); Arterial Blood Gas Hematocrit 41.7 % (42-52); Base Excess ABG 0.7 mmol/L (-2.0-2.0); Blood Gas Sample Site Not specified; Blood Gas Sample Type Arterial; Carboxyhemoglobin < 1.0 %THgb (0.4-20.1); HCO3 ABG 25.3 mmol/L (22-26); Ionized Calcium Level - ABG 1.3 mmol/L (1.1-1.4); Methemoglobin 0.4 % (0.4-1.5); Oxygen Saturation ABG > 100.0; Total Hemoglobin 13.6 g/dL (14-18)
[2022-04-16 09:49] LABS: ABG PH Result 7.32 (7.35-7.45); Arterial Blood Gas Hematocrit 40.5 % (42-52); Base Excess ABG -2.1 mmol/L (-2.0-2.0); Blood Gas Sample Site Not specified; Blood Gas Sample Type Arterial; Carboxyhemoglobin < 1.0 %THgb (0.4-20.1); HCO3 ABG 24.3 mmol/L (22-26); Ionized Calcium Level - ABG 1.2 mmol/L (1.1-1.4); Methemoglobin 0.4 % (0.4-1.5); Oxygen Saturation ABG > 100.0; Potassium Level - ABG 4.2 mmol/L (3.5-5.0); Total Hemoglobin 13.2 g/dL (14-18)
[2022-04-16] MEDS: morphine 4 mg/mL SDV 1 mL 2 MG IVP (09:49)
[2022-04-16 09:50] LABS: ABG PCO2 36.5 mmHg (35-45); ABG PCO2 44.2 mmHg (35-45); ABG PH Result 7.33 (7.35-7.45); Arterial Blood Gas Hematocrit 30.7 % (42-52); Arterial Blood Gas Hematocrit 30.9 % (42-52); Base Excess ABG -1.9 mmol/L (-2.0-2.0); Base Excess ABG -2.9 mmol/L (-2.0-2.0); Blood Gas Sample Site Not specified; Blood Gas Sample Type Arterial; Carboxyhemoglobin < 1.0 %THgb (0.4-20.1); HCO3 ABG 22.6 mmol/L (22-26); HCO3 ABG 23.1 mmol/L (22-26); HGB O2 Sat 98.2 % (95-100); Ionized Calcium Level - ABG 1.1 mmol/L (1.1-1.4); Methemoglobin 0.4 % (0.4-1.5); Methemoglobin 0.8 % (0.4-1.5); Oxygen Saturation ABG > 100.0; Potassium Level - ABG 5.8 mmol/L (3.5-5.0); Potassium Level - ABG 6.7 mmol/L (3.5-5.0); Total Hemoglobin 10.1 g/dL (14-18)
[2022-04-16] MEDS: pantoprazole 40 mg SDV IVP (09:50)
[2022-04-16] MEDS: chlorhexidine gluconate 0.12% Btl 473 mL 15 ML MUCOUS MEM ×2 (09:50→18:33)
[2022-04-16 09:51] LABS: ABG PCO2 41.4 mmHg (35-45); ABG PH Result 7.37 (7.35-7.45); Arterial Blood Gas Hematocrit 29.7 % (42-52); Base Excess ABG -1.6 mmol/L (-2.0-2.0); Blood Gas Sample Site Not specified; Blood Gas Sample Type Arterial; Carboxyhemoglobin < 1.0 %THgb (0.4-20.1); HCO3 ABG 23.7 mmol/L (22-26); Ionized Calcium Level - ABG 1.1 mmol/L (1.1-1.4); Methemoglobin 0.4 % (0.4-1.5); Potassium Level - ABG 6.3 mmol/L (3.5-5.0); Total Hemoglobin 9.7 g/dL (14-18)
[2022-04-16] MEDS: mupirocin oint 22 gm 1 APPLIC NASAL ×2 (09:51→18:33)
[2022-04-16 09:52] LABS: ABG PCO2 43.3 mmHg (35-45); ABG PH Result 7.32 (7.35-7.45); Arterial Blood Gas Hematocrit 29.2 % (42-52); Base Excess ABG -3.4 mmol/L (-2.0-2.0); Blood Gas Sample Site Not specified; Blood Gas Sample Type Arterial; HCO3 ABG 22.5 mmol/L (22-26); HGB O2 Sat 98.2 % (95-100); Ionized Calcium Level - ABG 1.4 mmol/L (1.1-1.4); Methemoglobin 0.6 % (0.4-1.5); Oxygen Saturation ABG 99.8; Potassium Level - ABG 5.4 mmol/L (3.5-5.0); Total Hemoglobin 9.5 g/dL (14-18)
[2022-04-16 09:53] LABS: ABG PCO2 43.6 mmHg (35-45); ABG PH Result 7.32 (7.35-7.45); Arterial Blood Gas Hematocrit 28.8 % (42-52); Base Excess ABG -3.5 mmol/L (-2.0-2.0); Blood Gas Sample Site Not specified; Blood Gas Sample Type Arterial; Carboxyhemoglobin 1.1 %THgb (0.4-20.1); HCO3 ABG 22.4 mmol/L (22-26); HGB O2 Sat 97.7 % (95-100); Ionized Calcium Level - ABG 1.4 mmol/L (1.1-1.4); Methemoglobin 1.1 % (0.4-1.5); Oxygen Saturation ABG 99.8; Potassium Level - ABG 5.5 mmol/L (3.5-5.0); Total Hemoglobin 9.4 g/dL (14-18)
[2022-04-16 09:54] LABS: ABG PCO2 46.4 mmHg (35-45); ABG PH Result 7.23 (7.35-7.45); Arterial Blood Gas Hematocrit 37.8 % (42-52); Base Excess ABG -8.1 mmol/L (-2.0-2.0); Blood Gas Sample Site Not specified; Blood Gas Sample Type Arterial; Carboxyhemoglobin < 1.0 %THgb (0.4-20.1); HCO3 ABG 19.4 mmol/L (22-26); Ionized Calcium Level - ABG 1.5 mmol/L (1.1-1.4); Oxygen Saturation ABG 99.8; Potassium Level - ABG 4.8 mmol/L (3.5-5.0); Total Hemoglobin 12.3 g/dL (14-18)
[2022-04-16 10:09] LABS: Glucose Point of Care 94 mg/dL (70-110)
[2022-04-16 10:09] LABS: Glucose Point of Care 98 mg/dL (70-110)
[2022-04-16 10:09] LABS: Glucose Point of Care 70 mg/dL (70-110)
--- NOTE | 2022-04-16 10:33 | PC.CHAP ---
Pastoral Care Encounter/Spiritual Assessment Type of Contact [] Declined software test manager visit [] Patient/Family/Request visit [] Outpatient visit [] Follow-up visit [] Physician referral [] Code/Alert [x] Routine visit [] Staff referral [] Actively dying [] Patient sleeping [x] Family support [] [] Out of room [] Palliative care [] [x] Receiving care in room [] Pre-surgical visit [] Trauma [] Long length of stay [x] ICU visit [x] Other: 2 staff working with PT Relational/Emotional Strength [] Patient feels connected with others/family/visitors/staff [] Distress [] Loneliness/isolation [] Abandonment Spirituality of Patient [] Person of Kristine [] Attends Pentecostalism of their Kristine [] Believes in Prayer [] Reads Bible or Samaritan materials [] There are Spiritual issues to be addressed Toy Electric Train Repairer Interventions [x] Prayer [] Active listening [] Non-anxious presence [] Spiritual/emotional support [] Crisis/trauma care [] Spiritual counseling [] Bereavement support [] Provided bereavement packet [] Provided Bible/devotional materials [] Provided toy/stuffed animal, coloring book to patient or family member [] Provided Communion [] Anointing/[place] [] Salvation [x] Completed spiritual assessment [] Other: Impact on Illness or Injury [] Angry [] Fearful [] Anxious [] Often cries [] Exhaustion [] Unable to work [] Unable to attend advent [] Unable to walk/stand [] Unable to read [] Unable to drive [] Unable to eat/drink [] Unable to sleep [] Unable to be with family [] Patient intubated [] Other: Summary Time spent with patient
--- NOTE | 2022-04-16 11:05 | PC.OT ---
HOLD OT EVALUATION PER NURSING THIS A.M. WILL ATTEMPT AGAIN AT A LATER TIME.
[2022-04-16 11:11] LABS: Blood Gas Operator Identificat Anonymous; Blood Gas Sample Type CalVer; Methemoglobin < 0.0 % (0.4-1.5)
[2022-04-16 11:12] LABS: Potassium Level - ABG 7.9 mmol/L (3.5-5.0); Total Hemoglobin 10.6 g/dL (14-18)
[2022-04-16 11:16] LABS: Glucose Level-ABG < 9.0 mg/dL (70-115); Oxygen Saturation ABG 99.9
--- NOTE | 2022-04-16 11:55 | PC.NURSE ---
TAR: PRBC unit # [id number] infusing . See Hemodynamic flowsheet for vital signs.
--- NOTE | 2022-04-16 12:35 | PC.NURSE ---
Dopamine gtt now off. Phenylephrine has been off for 20 mnutes. Cuff B/P 126/83. Heart rate 76 CCI 3.
--- NOTE | 2022-04-16 12:57 | ECG_ITS ---
[facility] Test Date: 2022-04-16 Pat Name: Humza Shelley Department: Room: ICU10 Gender: Male Outpatient Psychiatrist: : 1940 Requested By: Angel Mckee Order Number: [id number] Hinds MD: Mark Rowland M.D. Measurements Intervals Kirvin Rate: 77 P: 36 AL: 125 QRS: -24 QRSD: 131 T: 25 QT: 410 QTc: 466 Interpretive Statements SINUS RHYTHM BORDERLINE LEFT AXIS DEVIATION [QRS AXIS < -20] INTRAVENTRICULAR CONDUCTION DELAY [130+ ms QRS DURATION] Compared to ECG 04/16/2022 06:11:25 Intraventricular conduction delay now present Right bundle-branch block no longer present Electronically Signed On 04-17-2022 10:43:11 CDT by Mark Rowland M.D. [email or web address].[facility] [facility].[employer]/store/OM/[id number]
[2022-04-16 13:12] LABS: Glucose Point of Care 74 mg/dL (70-110)
[2022-04-16 13:12] LABS: Glucose Point of Care 92 mg/dL (70-110)
[2022-04-16 13:12] LABS: Glucose Point of Care 98 mg/dL (70-110)
[2022-04-16 13:57] LABS: Blood Gas Operator Identificat GD
--- NOTE | 2022-04-16 14:00 | XRR_ITS ---
PROCEDURE INFORMATION: Exam: XR Chest Exam date and time: 04/16/2022 2:09 PM Age: 81 years old Clinical indication: Device placement; Other: Cabg; Prior surgery; Surgery date: Post-operative (0-2 days); Additional info: Post op cabg/pleural effusion assesment TECHNIQUE: Imaging protocol: Radiologic exam of the chest. Views: 1 view. COMPARISON: CR XR chest 1V portable [id number] 04/16/2022 4:24 AM FINDINGS: Tubes, catheters and devices: Interval removal of endotracheal and feeding tubes. Left thoracostomy tube, mediastinal drain, central venous catheter, and [place]-Rafael catheter again demonstrated. Lungs: Interstitial prominence and asymmetric airspace disease, with mild interval improvement in left-sided airspace disease. Pleural spaces: Mild interval improvement in left pleural effusion. Heart/Mediastinum: No cardiomegaly. Vasculature: Ectasia of the thoracic aorta. Bones/joints: Median sternotomy. Osteopenia and degenerative change. Gastrointestinal tract: Bowel dilatation the visualized upper abdomen. XR/XR chest 1V portable [id number] IMPRESSION: 1. Interstitial prominence and asymmetric airspace disease, with mild interval improvement in left-sided airspace disease. 2. Mild interval improvement in left pleural effusion.
--- NOTE | 2022-04-16 16:00 | PC.NURSE ---
Updated Dr Mckee on pt's progress. Ok to discontinue SWANZ and cordis. Swanz removed intact. Pt tolerated well, 2 PVCs noted during. Stitch removed, then cordis removed. Pressure applied until hemostatis obtained. Area cleansed with [employer]vantics. Sorba View Contour Shield dressing applied. Pt tolerated well.
--- NOTE | 2022-04-16 16:21 | PM.CONSULT ---
Providers/Reason For Consult Consulting Physician/Specialty*: Mark Rowland MD/Cardiology Reason for Consult*: Medical management post CABG Requesting Physician: Dr Mckee Attending Physician: Angel Mckee MD Primary Care Provider: SENDY Hunter History of Present Illness History of Present Illness Humza Shelley is a 81 year old male with past medical history of hypertension and hyperlipidemia who had abnormal stress test last year and underwent coronary angiogram recently that showed severe distal left main/ostial LAD stenosis. He underwent two-vessel CABG with grafts to LAD and ramus. Patient is postop day 2. He is in sinus rhythm. Blood pressure is controlled. He did have a drop in hemoglobin and received 2 units of blood today. He is extubated. Denies significant chest pain. Medications/Allergies Home Medications Medication Instructions Recorded Confirmed Last Taken Type nitroglycerin 0.4 mg sublingual 0.4 mg sublingual Q5M PRN chest 01/17/21 04/10/22 Unknown Rx tablet pain #25 tabs aspirin 81 mg tablet,delayed 81 mg PO DAILY #90 tabs 03/07/22 04/15/22 04/12/22 Rx release (Adult Low Dose Aspirin) rosuvastatin 20 mg tablet 20 mg PO DAILY #90 tabs 03/07/22 04/15/22 04/14/22 Rx amlodipine 5 mg tablet 5 mg PO DAILY #90 tabs 03/28/22 04/15/22 04/15/22 04:30 Rx metoprolol tartrate 50 mg tablet 50 mg PO BID@0900,2100 #120 tabs 03/28/22 04/15/22 04/15/22 04:30 Rx Allergies Allergy/AdvReac Type Severity Reaction Status Date / Time Penicillins Allergy rash Verified 04/04/22 09:39 wasp venom Allergy Unknown Unknown Uncoded 04/04/22 09:39 shellfish Allergy itching.cou Uncoded 04/04/22 09:39 gh Current Medications Generic Name Dose Route Start Last Admin Trade Name Freq PRN Reason Stop Dose Admin Chlorhexidine Gluconate 15 ml 04/10/22 18:00 04/16/22 09:50 Chlorhexidine Gluconate 0.12% Btl 473 Ml MUCOUS MEM 15 ml BID EDWARD Administration Fentanyl 50 mcg 04/15/22 14:12 04/16/22 12:42 Fentanyl 50 Mcg/Ml Inj 2ml IVP 50 mcg Q1H PRN Administration SEVERE PAIN Dopamine HCl/Dextrose 400 mg in 250 mls @ 16.414 mls/hr 04/15/22 06:15 04/16/22 10:30 Intropin Drip IV Not Given CONT EDWARD Protocol 5 MCG/KG/MIN Phenylephrine HCl 25 mg/ 252.5 mls @ 0 mls/hr 04/15/22 14:12 04/16/22 12:15 Sodium Chloride IV 0 mcg/min .Q0M PRN 0 mls/hr HYPOTENSION Titration Protocol Per Protocol Albumin Human 12.5 gm in 250 mls @ 600 mls/hr 04/15/22 14:12 04/16/22 01:06 Albumin IV Infused PRN PRN Infusion For CVP < 4 or SBP< 90 Sodium Chloride 1,000 mls @ 75 mls/hr 04/15/22 14:15 04/16/22 06:30 Sodium Chloride 0.9% IV 0 mls/hr .[id number] EDWARD Infusion Insulin Human Regular 250 unit 252.5 mls @ 0 mls/hr 04/15/22 14:15 04/16/22 13:00 / Sodium Chloride IV 2.3 mls/hr .Q0M EDWARD 2.3 mls/hr Titration Protocol Per Protocol Vancomycin HCl 1,000 mg/ 250 mls @ 250 mls/hr 04/15/22 18:00 04/16/22 07:30 Sodium Chloride IV 04/17/22 06:59 Infused Q12H EDWARD Infusion Protocol Morphine Sulfate 2 mg 04/15/22 14:12 04/16/22 09:49 Morphine 4 Mg/Ml Sdv 1 Ml IVP 2 mg Q1H PRN Administration BREAKTHROUGH PAIN Mupirocin 1 applic 04/10/22 18:00 04/16/22 09:51 Mupirocin Oint 22 Gm NASAL 1 applic BID EDWARD Administration Oxycodone/Acetaminophen 1 - 2 tab 04/15/22 14:12 04/16/22 15:45 Oxycodone-Apap 5-325 Mg Tablet PO 2 tab Q6H PRN Administration MILD TO MODERATE PAIN Pantoprazole Sodium 40 mg 04/16/22 09:00 04/16/22 09:50 Pantoprazole 40 Mg Sdv IVP 04/17/22 08:59 40 mg DAILY EDWARD Administration PFSH Acute PFSH: Medical History Hx of bee sting allergy Hypertension Mixed hyperlipidemia Solid nodule of lung 6 mm to 8 mm in diameter Stable 7 mm nodule or lymph node within the right epipericardial fat December 2017 Surgical History History of lipoma Removal back and neck Family History Other CVA (cerebrovascular accident due to intracerebral hemorrhage) Heart disease Denies family history of Bleeding disorder Social History Smoking and tobacco status: never smoked Second hand smoke exposure: No Smoking risk assessment/counseling performed?: No Alcohol intake: never Desire information about alcohol rehabilitation?: No Counseling given: No Desire information about substance/drug rehabilitation?: No Counseling given: No Caregiver/support person: No Lives independently: Yes Household members: family Housing: House Marital status: service: No Current occupational status: employed History of recent travel: No Current gender identity: Male Vitals/I&O/Wt Last Vital Signs Temp 99 F 04/16/22 11:51 Pulse 72 04/16/22 14:15 Resp 22 H 04/16/22 15:45 BP 108/66 04/16/22 14:15 Pulse Ox 98 04/16/22 15:45 O2 Del Method 04/16/22 14:15 O2 Flow Rate 2 04/16/22 09:00 FiO2 3 04/16/22 06:30 04/16/22 04/16/22 04/16/22 06:59 14:59 22:59 Intake Total 1028.121 / 5753.714 736.121 / 736.121 Output Total 1026 / 6142 714 / 714 Balance 2.121 / -388.286 22.121 / 22.121 Weight last 48 hrs Weight 230 lb 6.129 oz Physical Exam Narrative: GENERAL: Patient is alert, awake and oriented x3. [] NECK: No jugular vein distension. [] HEART: Regular S1 and S2. No murmur, rub or gallop. [] LUNGS: Clear to auscultate bilaterally. [] ABDOMEN: Soft CENTRAL NERVOUS SYSTEM: Grossly nonfocal. [] EXTREMITIES: Lower extremities with 1+ edema bilaterally. Pulses palpable in the lower extremities, both dorsalis pedis and posterior tibial. [] Urinary Catheter Management: Wellington: Cath Placed During This Visit: yes Reason for Continuing Indwelling Catheter: Accurate Measurement of Urinary Output in Critically Ill Patients Urinary Catheter Date of Insertion: 04/15/22 Urinary Catheter Time of Insertion: 07:00 Data : 04/17/22 03:19 04/17/22 03:19 Micro: Microbiology 04/15/22 15:05 Gram Stain - Final Sputum - Endotracheal Tube Aspirate Sputum Culture - Preliminary A&P Assessment and plan (1) Status post aorto-coronary artery bypass graft: Status: Acute (2) Hypertension: Status: Acute Qualifiers: Hypertension type: essential hypertension Qualified Code(s): I10 - Essential (primary) hypertension (3) Mixed hyperlipidemia: Status: Chronic Plan Patient is postop day 1 post two-vessel CABG with a ANDREWS to LAD and SVG to ramus. He is overall stable. Extubated. Rhythm is stable. Received 2 units of blood secondary to drop in hemoglobin. Monitor H&H closely. Renal function is normal. Will start aspirin 81 mg daily. We will also start metoprolol 25 mg twice daily. Continue atorvastatin. Has left-sided pleural effusion. Chest tube management per Dr. Mckee. Echocardiogram postop was of very limited quality however no significant pericardial effusion seen. Thank you for involving us with care of this patient. We will continue to follow. Please call with questions. Consult Attestations Medical Necessity Statement: Care expected to cross 2 midnights. Coding Level of Care Code Acute Lacquer Spray Booth Operator for Kim Wright Diagnoses Status post aorto-coronary artery bypass graft Z95.1 Hypertension I10 Hypertension type: essential hypertension Mixed hyperlipidemia E78.2
--- NOTE | 2022-04-16 17:20 | PC.NURSE ---
Pt here, assisted pt up to chair at bedside. Pt able to bear weight. Shuffled his feet. He needed reminding to stand straight and not slump at this time. Pt tolerated.
[2022-04-16 18:21] LABS: Glucose Point of Care 89 mg/dL (70-110)
[2022-04-16 18:21] LABS: Glucose Point of Care 91 mg/dL (70-110)
[2022-04-16 18:21] LABS: Glucose Point of Care 120 mg/dL (70-110)
[2022-04-16 18:21] LABS: Glucose Point of Care 109 mg/dL (70-110)
[2022-04-16 18:21] LABS: Glucose Point of Care 105 mg/dL (70-110)
[2022-04-16] MEDS: aspirin 81 mg Chew Tablet PO (18:32)
[2022-04-16 19:16] LABS: Glucose Point of Care 98 mg/dL (70-110)
--- NOTE | 2022-04-16 19:39 | PC.NURSE ---
Shift Note: Pt remained in bed, attempting to rest amid very attentive family, until this afternoon. Two units of PRBCs transfused this shift, Cardiac output and B/P improved enough Phenylephrine and dopamine weaned off today. SWANZ and Cordis removed. PT came and worked with pt this afternoon. Pt now up in chair. Chest tube drainage: Mediastinal 270 ml and Pleural 24Ml.Pleural chest tube has not drained anything since this am. Urine output of 771ml. Pt stated he had not had a Bm since several days before admit for this surgery. Frequent safety and comfort rounds continue. Orders and/or nursing care completed as indicated. Patient monitored for response to intervention and treatment(s). Education provided includes Sternal precautions, transfusions, blood sugar and insulin, fentanyl, morphin and oxycodone. Plan of care discussed. Patient and/or promotional representative verbalized understanding of plan of care, sternal precautions and medications. Will continue to monitor.
[2022-04-16 20:05] LABS: Glucose Point of Care 98 mg/dL (70-110)
[2022-04-16 21:22] LABS: Glucose Point of Care 105 mg/dL (70-110)
[2022-04-16 22:08] LABS: Glucose Point of Care 85 mg/dL (70-110)
[2022-04-16] MEDS: atorvastatin 40 mg Tablet PO (22:25)
[2022-04-16 23:02] LABS: Glucose Point of Care 77 mg/dL (70-110)
[2022-04-17] VITALS (104 sets, daily range): BP systolic 99–160; BP diastolic 56–105; PULSE 65–100; RESP 10–25; TEMP 37.1–38.3; O2SAT 91–96
[2022-04-17 00:02] LABS: Glucose Point of Care 91 mg/dL (70-110)
[2022-04-17 01:01] LABS: Glucose Point of Care 75 mg/dL (70-110)
[2022-04-17] MEDS: fentaNYL 50 mcg/mL INJ 2mL IVP ×4 (01:23→13:05)
[2022-04-17 02:00] LABS: Glucose Point of Care 75 mg/dL (70-110)
[2022-04-17 03:23] LABS: Glucose Point of Care 103 mg/dL (70-110)
[2022-04-17 03:52] LABS: Basophils % 0.2 %; Eosinophils % 0.1 %; Hematocrit 30.8 % (42.0-52.0); Hemoglobin 10.1 g/dL (11.7-16.6); Lymphocytes # 0.9 10^3/uL (0.8-4.8); Lymphocytes % 7.2 %; Mean Corpuscular HGB Conc 32.8 g/dL (30.0-36.0); Mean Corpuscular Hemoglobin 29.7 pg (28.0-34.0); Mean Corpuscular Volume 90.6 fl (80-94); Mean Platelet Volume 10.8 fL (7.4-10.4); Monocytes # 1.3 10^3/uL (0.2-0.9); Monocytes % 10.7 %; Neutrophils # 10.07 10^3/uL (1.8-7.7); Neutrophils % 81.2 %; Nucleated Red Blood Cells % 0 %; Platelet Count 72 10^3/cmm (130-400); Red Cell Distribution Width 14.6 % (12.1-15.1); White Blood Count 12.4 10^3/uL (4.0-10.0)
[2022-04-17 04:04] LABS: Glucose Point of Care 85 mg/dL (70-110)
[2022-04-17 04:18] LABS: Anion Gap 12.2 (5-19); Blood Urea Nitrogen 19 mg/dL (8-23); Carbon Dioxide 22 mmol/L (22-29); Chloride 109 mmol/L (98-107); Glucose 109 mg/dL (65-115); Osmolality Calculated 291 mOsm/kg (285-295); Potassium 4.2 mmol/L (3.5-5.1); Sodium 139 mmol/L (136-145)
--- NOTE | 2022-04-17 04:23 | XR_ITS ---
WS: [id number] XR chest 1V portable [id number] REASON FOR EXAM: POD #2 CABG FINDINGS: Compared to the examination of 04/16/2022 the right jugular [place]-Rafael catheter has been removed. Right internal jugular central venous line remains in place. Chest tube remains positioned in the left hemithorax. There continues to be opacity in the lower left hemithorax, lung consolidation/atelectasis and pleura l fluid. There may be an increase in the left pleural effusion versus difference in positioning. The right chest remains clear. No other new finding or interval change. XR/XR chest 1V portable [id number] IMPRESSION: [place]-Rafael catheter removal. Persistent left hemithorax opacity as above.
[2022-04-17] MEDS: oxyCODONE-APAP 5-325 mg Tablet PO (04:43)
[2022-04-17 05:12] LABS: Glucose Point of Care 89 mg/dL (70-110)
[2022-04-17 05:12] LABS: Glucose Point of Care 58 mg/dL (70-110)
--- NOTE | 2022-04-17 05:27 | PC.NURSE ---
Educated patient and daughter the importance importance of coughing and deep breathing exercises, sternal precautions, and pain control.
[2022-04-17] MEDS: vancomycin 1,000 MG in sodium chloride 0.9% 250 ML 250 MG IV (05:48)
[2022-04-17 06:20] LABS: Glucose Point of Care 101 mg/dL (70-110)
--- NOTE | 2022-04-17 06:36 | PC.NURSE ---
Patient rested well through the night. Require pain medication 3 times. Wellington catheter removed this morning. Daughter at bedside.
[2022-04-17 07:11] LABS: Glucose Point of Care 92 mg/dL (70-110)
[2022-04-17 08:23] LABS: Glucose Point of Care 94 mg/dL (70-110)
[2022-04-17] MEDS: metoprolol tartrate 25 mg Tablet PO ×2 (08:38→20:32)
[2022-04-17] MEDS: aspirin 81 mg Chew Tablet PO (08:38)
[2022-04-17] MEDS: mupirocin oint 22 gm 1 APPLIC NASAL (08:46)
[2022-04-17] MEDS: chlorhexidine gluconate 0.12% Btl 473 mL 15 ML MUCOUS MEM (08:46)
[2022-04-17] MEDS: hyDRALAzine 20 mg/mL INJ 1 mL 5 MG IVP (09:20)
[2022-04-17 09:21] LABS: Glucose Point of Care 100 mg/dL (70-110)
--- NOTE | 2022-04-17 10:00 | PC.NURSE ---
Insulin gtt discontinued this AM per protocol. Diet started.
[2022-04-17 10:08] LABS: Glucose Point of Care 131 mg/dL (70-110)
--- NOTE | 2022-04-17 11:00 | P.PN_ITS ---
Subjective Subjective: Postop day #2 status post CABG. Mr. Shelley is up in a chair on rounds this morning. He looks quite good. No arrhythmias reported. Appreciate Dr. Rowland's input. Metoprolol has been added. There still appears to be some retained fluid in the left chest. Hopefully, with ambulation this will be able to drain appropriately. Vitals/I&O/Wt Last Vital Signs Temp 99.8 F H 04/17/22 08:00 Pulse 73 04/17/22 10:15 Resp 15 04/17/22 10:15 BP 105/80 04/17/22 10:15 Pulse Ox 93 04/17/22 10:15 O2 Del Method 04/17/22 06:15 O2 Flow Rate 2 04/16/22 20:45 FiO2 3 04/16/22 06:30 04/16/22 04/17/22 04/17/22 22:59 06:59 14:59 Intake Total 170.033 / 1458.454 498.1 / 1956.554 1.2 / 1.2 Output Total 368 / 1145 450 / 1595 Balance -197.967 / 313.454 48.1 / 361.554 1.2 / 1.2 Weight last 48 hrs Weight 228 lb 2.855 oz Weight 230 lb 6.129 oz Physical Exam Chest: OTHER: Chest wall is stable. Support lines are in position. Resp: OTHER: Right side is clear. Some decreased breath sounds in the left base and midlung field, consistent with the retained fluid. Cardio: OTHER: Regular rate and rhythm without rub or murmur. GI: OTHER: Soft without distention. Hypoactive bowel sounds. Extremity: NARRATIVE EXTREMITY EXAM: Peripheral edema slowly improving. Urinary Catheter Management: [place]: Cath Placed During This Visit: yes, but has since been removed by the nurse Reason for Continuing Indwelling Catheter: Decision to DC Catheter Urinary Catheter Date of Insertion: 04/15/22 Urinary Catheter Time of Insertion: 07:00 Date Urinary Catheter Removed: 04/17/22 Time Urinary Catheter Discontinued: 06:36 Data : 04/17/22 03:19 04/17/22 03:19 Micro: Microbiology 04/15/22 15:05 Gram Stain - Final Sputum - Endotracheal Tube Aspirate Sputum Culture - Final A&P Assessment and plan (1) Status post aorto-coronary artery bypass graft: Postop day #2 status post CABG Continue aggressive pulmonary toilet and ambulation. CBC, BMP, chest x-ray in a.m. If retained left effusion does not spontaneously resolved with current chest tube in position, I would recommend ultrasound guidance for thoracentesis tomorrow. Greatly appreciate Dr. Rowland's expertise and oversight. I will be off service and off campus with remainder of the week. I will ask our hospitalist colleagues to assist with medical management through the hospital stay. Status: Acute Attestations Medical Necessity Statement*: Postop day #2 status post CABG Coding Level of Care Code Acute [employer] Manager for Chg Fwd Diagnoses Status post aorto-coronary artery bypass graft Z95.1
--- NOTE | 2022-04-17 12:00 | PC.NURSE ---
Dr. Vincetn gave verbal order to discontinue ART line and central line. Pt tolerated well.
--- NOTE | 2022-04-17 12:25 | PM.CONSULT ---
Providers/Reason For Consult Consulting Physician/Specialty*: Dr. Rebecca Hillman/Internal Medicine Reason for Consult*: Medical Management Attending Physician: Angel Mckee MD Primary Care Provider: SENDY Hunter History of Present Illness History of Present Illness Humza Shelley is a 81 year old male with past medical history of hypertension, hyperlipidemia, solid lung nodule 8 mm has been admitted to the hospital for elective CABG procedure with surgery completed on 04/15/2022. He had been having chest discomfort episodes and dyspnea on exertion. He had a stress test done last year which showed large area of ischemia in LAD territory. He did not follow-up after that. He saw fisheries technician outpatient with significant dyspnea on exertion and lower extremity edema. Coronary angiogram was performed that showed critical 95% ostial LAD stenosis. He was started on metoprolol and amlodipine and was recommended to be seen by CV surgery as an outpatient. CABG was recommended at this time. Patient was admitted on 04/15/2022 for elective CABG procedure. He is today postop day 2. He underwent coronary artery bypass grafting x2 utilizing in situ left internal mammary artery to left anterior descending artery and reverse evidence vein graft from aorta to the ramus artery. Limited echo done postprocedure did not show any significant pericardial effusion. Post procedure patient's hemoglobin dropped from 11.9-8.4. He got 2 units of blood 04/16/2022. Hemoglobin today is 10.1. Hospitalist was consulted by cardiothoracic surgery to follow along for medical management. Patient seen today. He is accompanied by his daughter and son-in-law. He states he is doing well. Not experiencing any chest pain but does have some discomfort at his surgical site. He still has his mediastinal drains in place. He says he does not have much of an appetite but today was able to eat a little bit. He has not had a bowel movement so far. He does not want a stool softener at this time. Denies shortness of breath, nausea, vomiting, diarrhea, constipation, abdominal pain, difficulty breathing. He is very comfortable at this time and is on room air. Medications/Allergies Home Medications Medication Instructions Recorded Confirmed Last Taken Type nitroglycerin 0.4 mg sublingual 0.4 mg sublingual Q5M PRN chest 01/17/21 04/10/22 Unknown Rx tablet pain #25 tabs aspirin 81 mg tablet,delayed 81 mg PO DAILY #90 tabs 03/07/22 04/15/22 04/12/22 Rx release (Adult Low Dose Aspirin) rosuvastatin 20 mg tablet 20 mg PO DAILY #90 tabs 03/07/22 04/15/22 04/14/22 Rx amlodipine 5 mg tablet 5 mg PO DAILY #90 tabs 03/28/22 04/15/22 04/15/22 04:30 Rx metoprolol tartrate 50 mg tablet 50 mg PO BID@0900,2100 #120 tabs 03/28/22 04/15/22 04/15/22 04:30 Rx Allergies Allergy/AdvReac Type Severity Reaction Status Date / Time Penicillins Allergy rash Verified 04/04/22 09:39 wasp venom Allergy Unknown Unknown Uncoded 04/04/22 09:39 shellfish Allergy itching.cou Uncoded 04/04/22 09:39 gh Current Medications Generic Name Dose Route Start Last Admin Trade Name Freq PRN Reason Stop Dose Admin Aspirin 81 mg 04/16/22 18:00 04/17/22 08:38 Aspirin 81 Mg Chew Tablet PO 81 mg DAILY EDWARD Administration Atorvastatin Calcium 40 mg 04/16/22 21:00 04/16/22 22:25 Atorvastatin 40 Mg Tablet PO 40 mg BEDTIME EDWARD Administration Chlorhexidine Gluconate 15 ml 04/10/22 18:00 04/17/22 08:49 Chlorhexidine Gluconate 0.12% Btl 473 Ml MUCOUS MEM Not Given BID EDWARD Fentanyl 50 mcg 04/15/22 14:12 04/17/22 08:38 Fentanyl 50 Mcg/Ml Inj 2ml IVP 50 mcg Q1H PRN Administration SEVERE PAIN Dopamine HCl/Dextrose 400 mg in 250 mls @ 16.414 mls/hr 04/15/22 06:15 04/16/22 10:30 Intropin Drip IV Not Given CONT EDWARD Protocol 5 MCG/KG/MIN Phenylephrine HCl 25 mg/ 252.5 mls @ 0 mls/hr 04/15/22 14:12 04/16/22 12:15 Sodium Chloride IV 0 mcg/min .Q0M PRN 0 mls/hr HYPOTENSION Titration Protocol Per Protocol Albumin Human 12.5 gm in 250 mls @ 600 mls/hr 04/15/22 14:12 04/16/22 01:06 Albumin IV Infused PRN PRN Infusion For CVP < 4 or SBP< 90 Metoprolol Tartrate 25 mg 04/17/22 09:00 04/17/22 08:38 Metoprolol Tartrate 25 Mg Tablet PO 25 mg BID@0900,2100 [facility] Administration Morphine Sulfate 2 mg 04/15/22 14:12 04/16/22 09:49 Morphine 4 Mg/Ml Sdv 1 Ml IVP 2 mg Q1H PRN Administration BREAKTHROUGH PAIN Mupirocin 1 applic 04/10/22 18:00 04/17/22 08:50 Mupirocin Oint 22 Gm NASAL Not Given BID EDWARD Oxycodone/Acetaminophen 1 - 2 tab 04/15/22 14:12 04/17/22 04:43 Oxycodone-Apap 5-325 Mg Tablet PO 2 tab Q6H PRN Administration MILD TO MODERATE PAIN PFSH Acute PFSH: Medical History Hx of bee sting allergy Hypertension Mixed hyperlipidemia Solid nodule of lung 6 mm to 8 mm in diameter Stable 7 mm nodule or lymph node within the right epipericardial fat December 2017 Surgical History History of lipoma Removal back and neck Family History Other CVA (cerebrovascular accident due to intracerebral hemorrhage) Heart disease Denies family history of Bleeding disorder Social History Smoking and tobacco status: never smoked Second hand smoke exposure: No Smoking risk assessment/counseling performed?: No Alcohol intake: never Desire information about alcohol rehabilitation?: No Counseling given: No Desire information about substance/drug rehabilitation?: No Counseling given: No Caregiver/support person: No Lives independently: Yes Household members: family Housing: House Marital status: service: No Current occupational status: employed History of recent travel: No Current gender identity: Male Vitals/I&O/Wt Last Vital Signs Temp 99.8 F H 04/17/22 08:00 Pulse 73 04/17/22 10:15 Resp 15 04/17/22 10:15 BP 105/80 04/17/22 10:15 Pulse Ox 93 04/17/22 10:15 O2 Del Method 04/17/22 06:15 O2 Flow Rate 2 04/16/22 20:45 FiO2 3 04/16/22 06:30 04/16/22 04/17/22 04/17/22 22:59 06:59 14:59 Intake Total 170.033 / 1458.454 498.1 / 1956.554 1.2 / 1.2 Output Total 368 / 1145 450 / 1595 Balance -197.967 / 313.454 48.1 / 361.554 1.2 / 1.2 Weight last 48 hrs Weight 103.5 kg Weight 104.5 kg Physical Exam Narrative: General: Alert oriented x3, patient seen sitting up in bed appearing comfortable on room air. HEENT: Normocephalic, atraumatic, EOMI, breathing normally, no acute distress Cardio: Regular rate rhythm, normal S1-S2, no gross murmurs, chest wall slightly tender to palpation at surgical site Respiratory: Clear to auscultation bilaterally, no wheezes no rhonchi, diminished breath sounds at bases. Very mild crackles at left base. GI: Abdomen soft, nontender, nondistended, bowel sounds + Behavior: Appropriate and cooperative Extremities: Pulses palpable dorsalis pedis, 1+ bilateral edema bilateral lower extremities Urinary Catheter Management: [place]: Cath Placed During This Visit: yes, but has since been removed by the nurse Reason for Continuing Indwelling Catheter: Decision to DC Catheter Urinary Catheter Date of Insertion: 04/15/22 Urinary Catheter Time of Insertion: 07:00 Date Urinary Catheter Removed: 04/17/22 Time Urinary Catheter Discontinued: 06:36 Data : 04/18/22 06:20 04/18/22 06:20 Micro: Microbiology 04/15/22 15:05 Gram Stain - Final Sputum - Endotracheal Tube Aspirate Sputum Culture - Final A&P Assessment and plan (1) Status post aorto-coronary artery bypass graft: Status: Acute (2) Coronary artery disease due to calcified coronary lesion: Status: Acute (3) Dyspnea on exertion: Status: Acute (4) 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 We will check lipid profile ? Check hemoglobin A1c ? Continue aspirin, atorvastatin 40, metoprolol tartrate 25 twice daily ? Chest tube, mediastinal drain management as per cardiology and cardiothoracic surgery ? We will continue to follow patient -Refer to pulmonology at discharge for follow-up on lung nodule at discharge ? Hemoglobin 10.1 today. Patient is status post 2 units postop ? Leukocytosis appears to be reactive. Patient is afebrile. We will continue to monitor for infection. Full code Consult Attestations Medical Necessity Statement: Defer to primary team Coding Level of Care Code Acute Radiation Monitor for Kim Wright Diagnoses Status post aorto-coronary artery bypass graft Z95.1 Coronary artery disease due to calcified coronary lesion I25.10; I25.84 Dyspnea on exertion R06.09 Solid nodule of lung 6 mm to 8 mm in diameter R91.1 Hypertension I10 Hypertension type: essential hypertension Mixed hyperlipidemia E78.2
--- NOTE | 2022-04-17 16:11 | P.PN_ITS ---
Subjective Subjective: Patient is overall stable. Has some chest discomfort at the sternotomy site. Still has left sided pleural effusion. Had mild fever this AM Vitals/I&O/Wt Last Vital Signs Temp 99.8 F H 04/17/22 08:00 Pulse 78 04/17/22 15:00 Resp 17 04/17/22 15:00 BP 101/65 04/17/22 15:00 Pulse Ox 92 04/17/22 15:00 O2 Del Method 04/17/22 13:27 O2 Flow Rate 2 04/16/22 20:45 FiO2 3 04/16/22 06:30 04/17/22 04/17/22 04/17/22 06:59 14:59 22:59 Intake Total 498.1 / 1956.554 361.2 / 361.2 Output Total 450 / 1595 Balance 48.1 / 361.554 361.2 / 361.2 Weight last 48 hrs Weight 228 lb 2.855 oz Weight 230 lb 6.129 oz Physical Exam Narrative: GENERAL: Patient is alert, awake and oriented x3. [] NECK: No jugular vein distension. [] HEART: Regular S1 and S2. No murmur, rub or gallop. [] LUNGS: Clear to auscultate bilaterally. [] ABDOMEN: Soft CENTRAL NERVOUS SYSTEM: Grossly nonfocal. [] EXTREMITIES: Lower extremities with 1+ edema bilaterally. Urinary Catheter Management: [place]: Cath Placed During This Visit: yes, but has since been removed by the nurse Reason for Continuing Indwelling Catheter: Decision to DC Catheter Urinary Catheter Date of Insertion: 04/15/22 Urinary Catheter Time of Insertion: 07:00 Date Urinary Catheter Removed: 04/17/22 Time Urinary Catheter Discontinued: 06:36 Data : 04/17/22 03:19 04/17/22 03:19 Micro: Microbiology 04/15/22 15:05 Gram Stain - Final Sputum - Endotracheal Tube Aspirate Sputum Culture - Final A&P Assessment and plan (1) Status post aorto-coronary artery bypass graft: Status: Acute (2) Hypertension: Status: Acute Qualifiers: Hypertension type: essential hypertension Qualified Code(s): I10 - Essential (primary) hypertension (3) Mixed hyperlipidemia: Status: Chronic Plan Patient is postop day 2 post two-vessel CABG with a ANDREWS to LAD and SVG to ramus. He is overall stable. Extubated. Rhythm is stable. H &H is stable since receiving blood transfusions. Renal function is normal. Continue aspirin, metoprolol and atorvastatin. Still has left-sided pleural effusion. Chest tube management per Dr. Mckee. Echocardiogram postop was of very limited quality however no significant pericardial effusion seen. Medicine team consulted for management of medical issues. Thank you for involving us with care of this patient. We will continue to follow. Please call with questions. Attestations Medical Necessity Statement*: Care expected to cross 2 midnights. Coding Level of Care Code Acute Hot Metal Crane Operator for Kim Fwolga Diagnoses Status post aorto-coronary artery bypass graft Z95.1 Hypertension I10 Hypertension type: essential hypertension Mixed hyperlipidemia E78.2
[2022-04-17 16:51] LABS: Glucose Point of Care 138 mg/dL (70-110)
[2022-04-17] MEDS: acetaminophen 325 mg Tablet 650 MG PO (20:32)
[2022-04-17] MEDS: atorvastatin 40 mg Tablet PO (20:33)
--- NOTE | 2022-04-17 20:43 | PC.NURSE ---
Pt attempting to get out of bed by himself. Assisted to sitting position on the edge of bed with assist of 2, but pt significantly dizzy. Pt placed on bedpan, but unable to have bowel movement or urinate. PVR greater than [address] Barksdale notified. Penis is significantly edematous, now elevated on towel roll. Pt aware of month, year, place, and situation, but not day. Pulse oximetry monitor placed on patient. Bed alarm set. Incentive spirometer encouraged. Pt able to take 3 breaths at 500 mls each.
[2022-04-17 21:56] LABS: Glucose Point of Care 125 mg/dL (70-110)
--- NOTE | 2022-04-17 22:35 | PC.NURSE ---
Sterile water added to Atrium suction control chamber.
--- NOTE | 2022-04-17 23:44 | PC.NURSE ---
Pt up to commode with assist of 2. Pt dyspneic with exertion, but denies dizziness or chest pain. DENNISE bandage removed from right leg. Incisions cleansed with betadine.
[2022-04-18] VITALS (84 sets, daily range): BP systolic 87–156; BP diastolic 57–100; PULSE 60–87; RESP 12–26; TEMP 36.8–36.9; O2SAT 93–98
[2022-04-18] MEDS: oxyCODONE-APAP 5-325 mg Tablet PO ×3 (00:26→18:01)
--- NOTE | 2022-04-18 02:06 | PC.NURSE ---
Pt resting quietly in bed with eyes closed. Respirations are even and unlabored. Skin is pink, warm, and dry.
--- NOTE | 2022-04-18 03:39 | PC.NURSE ---
Pt's atrium knocked over during transfer from commode to bed. Atrium changed out.
--- NOTE | 2022-04-18 05:22 | PC.NURSE ---
Dr. Barksdale notified of pt's systolic pressure, heart rate, and current med orders. Order to give Labetalol 10 mg IVP now.
[2022-04-18] MEDS: labetalol 5 mg/mL SDV 20mL 10 MG IVP ×2 (05:25→17:25)
--- NOTE | 2022-04-18 05:47 | PC.NURSE ---
Pt alert to month, year, place, situation, but not day or time of day. Pt easily reoriented.
[2022-04-18 06:40] LABS: Basophils % 0.1 %; Eosinophils % 0.3 %; Hematocrit 31.2 % (42.0-52.0); Hemoglobin 10.1 g/dL (11.7-16.6); Mean Corpuscular HGB Conc 32.4 g/dL (30.0-36.0); Mean Corpuscular Hemoglobin 29.1 pg (28.0-34.0); Mean Corpuscular Volume 89.9 fl (80-94); Mean Platelet Volume 10.8 fL (7.4-10.4); Monocytes # 1.2 10^3/uL (0.2-0.9); Monocytes % 9.9 %; Neutrophils # 9.84 10^3/uL (1.8-7.7); Neutrophils % 81.1 %; Nucleated Red Blood Cells % 0 %; Platelet Count 101 10^3/cmm (130-400); Red Blood Count 3.47 10^6/uL (4.1-5.3); Red Cell Distribution Width 14.2 % (12.1-15.1); White Blood Count 12.1 10^3/uL (4.0-10.0)
[2022-04-18 07:02] LABS: Blood Urea Nitrogen 20 mg/dL (8-23); Calcium 9.5 mg/dL (8.5-10.5); Carbon Dioxide 26 mmol/L (22-29); Chloride 106 mmol/L (98-107); Glucose 134 mg/dL (65-115); Osmolality Calculated 291 mOsm/kg (285-295); Sodium 138 mmol/L (136-145)
[2022-04-18 08:06] LABS: Glucose Point of Care 125 mg/dL (70-110)
[2022-04-18] MEDS: metoprolol tartrate 25 mg Tablet PO ×2 (08:25→20:05)
[2022-04-18] MEDS: aspirin 81 mg Chew Tablet PO (08:26)
[2022-04-18 11:04] LABS: Glucose Point of Care 135 mg/dL (70-110)
--- NOTE | 2022-04-18 12:05 | PC.SOCIAL ---
IMM update IMM update with patient at bedside. Copy of page 2 provided. Patient verbalized understanding. Copy in chart initialed, timed and dated.
--- NOTE | 2022-04-18 13:02 | PM.PN ---
Subjective Subjective: Humza is 3 days out post two-vessel coronary bypass surgery for left main disease. He had a left internal mammary to the LAD and a vein graft to the ramus. He remains in sinus rhythm. Chest tubes are still in. He did require 2 units of packed cells 2 days ago for a drop in his hemoglobin. He seems to be getting along pretty well. Other than being sore he does not have any specific complaints. An echocardiogram on the with just limited views to evaluate for pericardial effusion revealed no pericardial fluid. His hemoglobin has been stable over the last 2 days. Beginning to participate in rehab. Vitals/I&O/Wt Last Vital Signs Temp 99.2 F 04/17/22 23:43 Pulse 65 04/18/22 12:13 Resp 17 04/18/22 12:04 BP 96/62 04/18/22 12:00 Pulse Ox 96 04/18/22 12:04 O2 Del Method 04/18/22 12:04 O2 Flow Rate 2 04/16/22 20:45 FiO2 3 04/16/22 06:30 04/17/22 04/18/22 04/18/22 22:59 06:59 14:59 Intake Total 250 / 616.5 240 / 856.5 240 / 240 Output Total 837 / 837 20 / 857 Balance -587 / -220.5 220 / -0.5 240 / 240 Weight last 48 hrs Weight 221 lb 1.6 oz Weight 228 lb 2.855 oz Physical Exam Narrative: GENERAL: In general he looks and feels well HEENT: Exam within normal limits. NECK: Supple without jugular vein distention. The carotid upstroke is normal without bruits. BACK: Exam normal. LUNGS: Clear. HEART: Regular rate and rhythm. ABDOMEN: Benign without organomegaly or tenderness. EXTREMITIES: No edema. NEUROLOGIC: Exam normal. SKIN: Unremarkable. Urinary Catheter Management: [place]: Cath Placed During This Visit: yes, but has since been removed by the nurse Reason for Continuing Indwelling Catheter: Decision to DC Catheter Urinary Catheter Date of Insertion: 04/15/22 Urinary Catheter Time of Insertion: 07:00 Date Urinary Catheter Removed: 04/17/22 Time Urinary Catheter Discontinued: 06:36 Data : 04/18/22 06:20 04/18/22 06:20 Micro: Microbiology 04/15/22 15:05 Gram Stain - Final Sputum - Endotracheal Tube Aspirate Sputum Culture - Final A&P Assessment and plan (1) Status post aorto-coronary artery bypass graft: Status: Acute (2) Coronary artery disease due to calcified coronary lesion: Status: Acute (3) Hypertension: Status: Acute Qualifiers: Hypertension type: essential hypertension Qualified Code(s): I10 - Essential (primary) hypertension (4) Mixed hyperlipidemia: Status: Chronic Plan He seems to be getting along okay. No complications. Still in sinus rhythm. Drips are all off. He is on a beta-bennett and low-dose aspirin as well as a statin. Continue routine postoperative care. Attestations Medical Necessity Statement*: Hospitalization for management of post cardiac surgery state. Coding Level of Care Code Established Pt Acute Mold Maker Plastic Molds for Kim Wright Patient Type Established History Detailed Exam Detailed Medical Decision Making Moderate Complexity Diagnoses Status post aorto-coronary artery bypass graft Z95.1 Coronary artery disease due to calcified coronary lesion I25.10; I25.84 Hypertension I10 Hypertension type: essential hypertension Mixed hyperlipidemia E78.2
--- NOTE | 2022-04-18 13:16 | PC.CHAP ---
Pastoral Care Encounter/Spiritual Assessment Type of Contact [] Declined park superintendent visit [] Patient/Family/Request visit [] Outpatient visit [] Follow-up visit [] Physician referral [] Code/Alert [x] Routine visit [] Staff referral [] Actively dying [x] Patient sleeping [] Family support [] [] Out of room [] Palliative care [] [] Receiving care in room [] Pre-surgical visit [] Trauma [] Long length of stay [x] ICU visit [] Other: Relational/Emotional Strength [] Patient feels connected with others/family/visitors/staff [] Distress [] Loneliness/isolation [] Abandonment Spirituality of Patient [] Person of Kristine [] Attends Sabianist of their Kristine [] Believes in Prayer [] Reads Bible or Episcopalian materials [] There are Spiritual issues to be addressed Incendiaries Supervisor Interventions [x] Prayer [] Active listening [] Non-anxious presence [] Spiritual/emotional support [] Crisis/trauma care [] Spiritual counseling [] Bereavement support [] Provided bereavement packet [] Provided Bible/devotional materials [] Provided toy/stuffed animal, coloring book to patient or family member [] Provided Communion [] Anointing/[place] [] Salvation [x] Completed spiritual assessment [] Other: Impact on Illness or Injury [] Angry [] Fearful [] Anxious [] Often cries [] Exhaustion [] Unable to work [] Unable to attend pentecostalism [] Unable to walk/stand [] Unable to read [] Unable to drive [] Unable to eat/drink [] Unable to sleep [] Unable to be with family [] Patient intubated [] Other: Summary Time spent with patient
--- NOTE | 2022-04-18 15:08 | PM.PN ---
Subjective Subjective: Seen this morning. No acute events overnight. Vitals/I&O/Wt Last Vital Signs Temp 99.2 F 04/17/22 23:43 Pulse 72 04/18/22 14:30 Resp 20 H 04/18/22 14:30 BP 119/73 04/18/22 14:30 Pulse Ox 96 04/18/22 12:04 O2 Del Method 04/18/22 12:04 O2 Flow Rate 2 04/16/22 20:45 FiO2 3 04/16/22 06:30 04/18/22 04/18/22 04/18/22 06:59 14:59 22:59 Intake Total 240 / 856.5 720 / 720 Output Total 20 / 857 Balance 220 / -0.5 720 / 720 Weight last 48 hrs Weight 100.289 kg Weight 103.5 kg Physical Exam Narrative: General: Alert oriented x3, patient seen sitting up in bed appearing comfortable on room air. HEENT: Normocephalic, atraumatic, EOMI, breathing normally, no acute distress Cardio: Regular rate rhythm, normal S1-S2, no gross murmurs, chest wall slightly tender to palpation at surgical site Respiratory: Clear to auscultation bilaterally, no wheezes no rhonchi, diminished breath sounds at bases. Very mild crackles at left base. GI: Abdomen soft, nontender, nondistended, bowel sounds + Behavior: Appropriate and cooperative Extremities: Pulses palpable dorsalis pedis, 1+ bilateral edema bilateral lower extremities Urinary Catheter Management: [place]: Cath Placed During This Visit: yes, but has since been removed by the nurse Reason for Continuing Indwelling Catheter: Decision to DC Catheter Urinary Catheter Date of Insertion: 04/15/22 Urinary Catheter Time of Insertion: 07:00 Date Urinary Catheter Removed: 04/17/22 Time Urinary Catheter Discontinued: 06:36 Data : 04/18/22 06:20 04/18/22 06:20 A&P Assessment and plan (1) Status post aorto-coronary artery bypass graft: Status: Acute (2) Coronary artery disease due to calcified coronary lesion: Status: Acute (3) Dyspnea on exertion: Status: Acute (4) 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 We will check lipid profile ? Check hemoglobin A1c ? Continue aspirin, atorvastatin 40, metoprolol tartrate 25 twice daily ? Chest tube, mediastinal drain management as per cardiology and cardiothoracic surgery ? We will continue to follow patient -Refer to pulmonology at discharge for follow-up on lung nodule at discharge ? Hemoglobin 10.1 04/17. Patient is status post 2 units postop ? Leukocytosis appears to be reactive. Patient is afebrile. We will continue to monitor for infection. -We will recheck labs in a.m. to monitor leukocytosis and hemoglobin ? Continue routine postoperative care ? PT OT Full code Attestations Medical Necessity Statement*: Defer to primary team Coding Level of Care Code Acute Golf Course Assistant for Chg Fwd Diagnoses Status post aorto-coronary artery bypass graft Z95.1 Coronary artery disease due to calcified coronary lesion I25.10; I25.84 Dyspnea on exertion R06.09 Solid nodule of lung 6 mm to 8 mm in diameter R91.1 Hypertension I10 Hypertension type: essential hypertension Mixed hyperlipidemia E78.2
[2022-04-18 16:20] LABS: Glucose Point of Care 101 mg/dL (70-110)
[2022-04-18 17:10] LABS: Estmated Average Glucose 131; Hemoglobin A1C 6.2 % (4.0-6.0)
[2022-04-18 17:13] LABS: Chol HDL Ratio 3.38 mg/dL (1.0-5.00); Cholesterol 88 mg/dL (0-200); HDL Cholesterol 26 mg/dL (60-100); LDL Cholesterol Calculated 47 mg/dL (50-129); LDL HDL Ratio 1.81 RATIO (0.00-3.22); Triglycerides 74 mg/dL (0-150)
--- NOTE | 2022-04-18 18:10 | PC.NURSE ---
Patient has been up walking around unit and up to chair this shift. Tolerating activities well. PRN pain medication has been given twice.
[2022-04-18] MEDS: atorvastatin 40 mg Tablet PO (20:05)
[2022-04-18 20:15] LABS: Glucose Point of Care 105 mg/dL (70-110)
[2022-04-19] VITALS (37 sets, daily range): BP systolic 102–166; BP diastolic 59–102; PULSE 55–87; RESP 5–28; TEMP 36.9–37.1; O2SAT 93–98
[2022-04-19 04:57] LABS: Basophils % 0.1 %; Eosinophils # 0.3 10^3/uL (0.0-0.8); Eosinophils % 3.2 %; Hematocrit 34.2 % (42.0-52.0); Lymphocytes # 0.9 10^3/uL (0.8-4.8); Lymphocytes % 8.1 %; Mean Corpuscular HGB Conc 32.2 g/dL (30.0-36.0); Mean Corpuscular Hemoglobin 29.8 pg (28.0-34.0); Mean Corpuscular Volume 92.7 fl (80-94); Mean Platelet Volume 10.9 fL (7.4-10.4); Monocytes # 1.4 10^3/uL (0.2-0.9); Monocytes % 12.7 %; Neutrophils # 7.97 10^3/uL (1.8-7.7); Nucleated Red Blood Cells % 0 %; Platelet Count 154 10^3/cmm (130-400); Red Blood Count 3.69 10^6/uL (4.1-5.3); White Blood Count 10.6 10^3/uL (4.0-10.0)
[2022-04-19 05:17] LABS: Alanine Aminotransferase 72 U/L (0-41); Albumin Level 3.1 g/dL (3.5-5.2); Alkaline Phosphatase 76 U/L (40-130); Anion Gap 11.7 (5-19); Aspartate Amino Transferase 98 U/L (0-40); Blood Urea Nitrogen 17 mg/dL (8-23); Calcium 9.7 mg/dL (8.5-10.5); Carbon Dioxide 26 mmol/L (22-29); Chloride 105 mmol/L (98-107); Globulin 2.8 g/dL (1.3-4.6); Glucose 106 mg/dL (65-115); Magnesium 2.2 mg/dL (1.7-2.3); Osmolality Calculated 290 mOsm/kg (285-295); Potassium 3.7 mmol/L (3.5-5.1); Sodium 139 mmol/L (136-145); Total Bilirubin 0.7 mg/dL (0.15-1.2); Total Protein 5.9 g/dL (6.6-8.7)
[2022-04-19] MEDS: oxyCODONE-APAP 5-325 mg Tablet PO ×2 (05:57→10:00)
--- NOTE | 2022-04-19 07:07 | P.PN_ITS ---
Subjective Subjective: Humza had an uneventful night. He remains in sinus rhythm. Chest tubes are still in. He is up and around. Chest tube drainage 75 mL yesterday. All drips are off. Blood pressure has been stable. He is on minimum medications to include beta-bennett, low-dose aspirin and statin. Pain under go od control. Hemoglobin stable. Creatinine remains normal. Urine output 400 mL. Last chest x-ray was 2 days ago showing a persistence of the left-sided pleural effusion. He has been up and around with physical therapy. Vitals/I&O/Wt Last Vital Signs Temp 98.4 F 04/19/22 04:00 Pulse 79 04/19/22 06:00 Resp 22 H 04/19/22 06:00 BP 154/87 04/19/22 06:00 Pulse Ox 97 04/19/22 06:00 O2 Del Method 04/19/22 06:00 O2 Flow Rate 2 04/16/22 20:45 FiO2 3 04/16/22 06:30 04/18/22 04/19/22 04/19/22 22:59 06:59 14:59 Intake Total 390 / 1110 Output Total 75 / 75 400 / 475 Balance 315 / 1035 -400 / 635 Weight last 48 hrs Weight 215 lb 9.6 oz Weight 221 lb 1.6 oz Physical Exam Narrative: GENERAL: In general he is sleeping this morning HEENT: Exam within normal limits. NECK: Supple without jugular vein distention. The carotid upstroke is normal without bruits. BACK: Exam normal. LUNGS: Clear. HEART: Regular rate and rhythm. ABDOMEN: Benign without organomegaly or tenderness. EXTREMITIES: No edema. NEUROLOGIC: Exam normal. SKIN: Unremarkable. Urinary Catheter Management: Wellington: Cath Placed During This Visit: yes, but has since been removed by the nurse Reason for Continuing Indwelling Catheter: Decision to DC Catheter Urinary Catheter Date of Insertion: 04/15/22 Urinary Catheter Time of Insertion: 07:00 Date Urinary Catheter Removed: 04/17/22 Time Urinary Catheter Discontinued: 06:36 Data : 04/19/22 04:00 04/19/22 04:00 A&P Assessment and plan (1) Status post aorto-coronary artery bypass graft: Status: Acute (2) Coronary artery disease due to calcified coronary lesion: Status: Acute (3) Hypertension: Status: Acute Qualifiers: Hypertension type: essential hypertension Qualified Code(s): I10 - Essential (primary) hypertension (4) Mixed hyperlipidemia: Status: Chronic Plan Repeat chest x-ray. Reassess pleural effusion. Remove chest tubes when able. Activity. Routine postoperative care otherwise. Continue same medications. Attestations Medical Necessity Statement*: Continued hospitalization for management of post coronary artery bypass. Coding Level of Care Code Acute Card Processing Clerk for Chg Fwd History Detailed Exam Detailed Medical Decision Making Moderate Complexity Diagnoses Status post aorto-coronary artery bypass graft Z95.1 Coronary artery disease due to calcified coronary lesion I25.10; I25.84 Hypertension I10 Hypertension type: essential hypertension Mixed hyperlipidemia E78.2
--- NOTE | 2022-04-19 07:20 | XRR_ITS ---
PROCEDURE INFORMATION: Exam: XR Chest Exam date and time: 04/19/2022 8:15 AM Age: 81 years old Clinical indication: Condition or disease; Lung condition and disease; Pleural effusion; Other: Post cabg; Prior surgery; Surgery date: 3-7 days post-operative; Additional info: Post bypass left pleural effusion TECHNIQUE: Imaging protocol: Radiologic exam of the chest. Views: 1 view. COMPARISON: CR XR chest 1V portable [id number] 04/17/2022 4:35 AM FINDINGS: Tubes, catheters and devices: Mediastinal and left chest tubes are present and unchanged. Lungs: There is left basilar opacity consistent with left basilar atelectasis/consolidation and left pleural effusion. This has improved since previous study. Pleural spaces: No pneumothorax. Heart/Mediastinum: The cardiac silhouette is enlarged. The patient has undergone coronary bypass surgery. Bones/joints: Unremarkable. XR/XR chest 1V portable [id number] IMPRESSION: Left basilar opacity consistent with basilar atelectasis/consolidation and left pleural effusion. When compared to the previous examination the size of the left effusion has decreased.
[2022-04-19 08:48] LABS: Glucose Point of Care 102 mg/dL (70-110)
[2022-04-19] MEDS: metoprolol tartrate 50 mg Tablet PO ×2 (08:50→21:25)
[2022-04-19] MEDS: aspirin 81 mg Chew Tablet PO (08:50)
--- NOTE | 2022-04-19 10:52 | PM.PN ---
Subjective Subjective: No acute events overnight. Drains output : mediastinal 230, pleural 2 cc yesterday. today 75 cc total between medistinal and pleural. Patient just walked with PT and is having little bit of discomfort overall but otherwise feeling ok. Vitals/I&O/Wt Last Vital Signs Temp 98.4 F 04/19/22 04:00 Pulse 55 L 04/19/22 10:00 Resp 20 H 04/19/22 10:00 BP 156/89 04/19/22 10:00 Pulse Ox 95 04/19/22 08:00 O2 Del Method 04/19/22 08:00 O2 Flow Rate 2 04/16/22 20:45 FiO2 3 04/16/22 06:30 04/18/22 04/19/22 04/19/22 22:59 06:59 14:59 Intake Total 390 / 1110 360 / 360 Output Total 75 / 75 400 / 475 Balance 315 / 1035 -400 / 635 360 / 360 Weight last 48 hrs Weight 97.795 kg Weight 100.289 kg Physical Exam Narrative: General: Alert oriented x3, patient seen sitting up in bed appearing comfortable on room air. HEENT: Normocephalic, atraumatic, EOMI, breathing normally, no acute distress Cardio: Regular rate rhythm, normal S1-S2, no gross murmurs, chest wall slightly tender to palpation at surgical site Respiratory: Clear to auscultation bilaterally, no wheezes no rhonchi, diminished breath sounds at bases. GI: Abdomen soft, nontender, nondistended, bowel sounds + Behavior: Appropriate and cooperative Extremities: Pulses palpable dorsalis pedis, 1+ bilateral edema bilateral lower extremities Urinary Catheter Management: Wellington: Cath Placed During This Visit: yes, but has since been removed by the nurse Reason for Continuing Indwelling Catheter: Decision to DC Catheter Urinary Catheter Date of Insertion: 04/15/22 Urinary Catheter Time of Insertion: 07:00 Date Urinary Catheter Removed: 04/17/22 Time Urinary Catheter Discontinued: 06:36 Data : 04/19/22 04:00 04/19/22 04:00 A&P Assessment and plan (1) Status post aorto-coronary artery bypass graft: Status: Acute (2) Coronary artery disease due to calcified coronary lesion: Status: Acute (3) Dyspnea on exertion: Status: Acute (4) 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 We will check lipid profile ? hemoglobin A1c 6.1 ? Continue aspirin, atorvastatin 40, metoprolol tartrate 25 twice daily ? Chest tube, mediastinal drain management as per cardiology and cardiothoracic surgery ? We will continue to follow patient -Refer to pulmonology at discharge for follow-up on lung nodule at discharge ? Hemoglobin 11 today, stable.. Patient is status post 2 units postop ? Leukocytosis appears to be reactive. Patient is afebrile. We will continue to monitor for infection. WBC down to 10.6 ? Continue routine postoperative care - XR chest to re-eval pleural effusion. Drain removal as per CT surgery. ? PT OT Full code Attestations Medical Necessity Statement*: Defer to primary team. Coding Level of Care Code Acute Sales And Marketing Intern for Chg Fwd Diagnoses Status post aorto-coronary artery bypass graft Z95.1 Coronary artery disease due to calcified coronary lesion I25.10; I25.84 Dyspnea on exertion R06.09 Solid nodule of lung 6 mm to 8 mm in diameter R91.1 Hypertension I10 Hypertension type: essential hypertension Mixed hyperlipidemia E78.2
[2022-04-19 11:36] LABS: Glucose Point of Care 114 mg/dL (70-110)
[2022-04-19] MEDS: oxyCODONE-APAP 5-325 mg Tablet 1 TAB PO ×2 (15:39→21:25)
[2022-04-19 16:56] LABS: Glucose Point of Care 95 mg/dL (70-110)
--- NOTE | 2022-04-19 18:42 | PC.NURSE ---
680 Ml of serosanguineous fluid was noted from mediastinal chest tube in 24 hours. Pt has also been complaining of new onset of back pain. Dr. Coughlin was notified and gave orders for AM xray and labs.
--- NOTE | 2022-04-19 19:43 | PC.NURSE ---
Pt assisted back to bed. He complains of back pain in his middle back, 8/10 with exertion, not bad while resting. Pain is not reproducible. No swelling or bruising present. Pt has increased output from chest tube today. Day shift nurse has notified cephalometric analyst sonography technologist. Wound vac is compressed, with no drainage noted. Chest tube appears to be functioning normally. Blood pressure monitoring increased to q15min. Pt will notify nursing of increased pain.
--- NOTE | 2022-04-19 19:55 | PM.MISC ---
Miscellaneous Note Note: I received a call short while ago from the nurse working the [employer] telling me that there was suddenly 680 mL of blood from the chest tube. She also told me that the patient was complaining of back pain. His blood pressure has been mildly labile today. He remains on a minimum number of medications. She also mentioned something about an aortic dissection during surgery. This made no sense to me. Therefore I came to try to sort this out myself. It turns out that the 680 mL was actually the amount out of the tube in 24 hours between around 5 PM yesterday and 5 PM today. Unfortunately that amount was not recorded in the output section this morning. I was initially told it was bright red blood however it is dark red blood. From 5 PM today until just a short while ago there has been another 130 mL of similar appearing fluid out of the tube. Patient's blood pressure is stable. I decided to look at the operative report to see if there was anything out of the ordinary. The only thing out of the ordinary was just prior to heparin reversal there was some spontaneous bleeding from the proximal aspect of the ascending aorta. This necessitated reapplication of the cross-clamp with readministration of cardioplegia for cardiac arrest to allow for appropriate assessment and subsequent repair of this area using felt with 4-0 Prolene suture. Adequate hemostasis was confirmed. The cross-clamp was then released again. From the report, this seemed to be rather routine. There was no mention of any dissection. Hemoglobin this morning was 11. This is stable over time. Chest x-ray this morning revealed a decrease in the size of the left pleural effusion. I estimate that this is old blood which has mobilized now that he is up and around. There does not appear to be any fresh blood in tube. We will reassess his chest x-ray and CBC in the morning. Currently he is hemodynamically stable.
--- NOTE | 2022-04-19 19:59 | PC.NURSE ---
Dr. Coughlin at bedside at 1949. No additional chest tube drainage since 1900 observed.
--- NOTE | 2022-04-19 20:28 | PC.NURSE ---
Pt resting quietly in bed with eyes closed. Respirations are even and unlabored. Skin is dry and pink.
[2022-04-19] MEDS: atorvastatin 40 mg Tablet PO (21:24)
[2022-04-19 21:49] LABS: Glucose Point of Care 93 mg/dL (70-110)
--- NOTE | 2022-04-19 21:51 | PC.NURSE ---
Pt has inspiratory wheezing on the right that clears with deep breathing. He coughs and has increased sternal pain with deep breathing while using IS.
[2022-04-20] VITALS (42 sets, daily range): BP systolic 99–151; BP diastolic 57–87; PULSE 57–85; RESP 12–25; TEMP 36.8–36.9; O2SAT 93–98
--- NOTE | 2022-04-20 00:17 | PC.NURSE ---
Pt tells me that he coughed up a huge ball of thick stuff. Unfortunately, pt swallowed phlegm. He has been coughing less, and his pain has improved. Pt's penis and scrotum remain very swollen and were elevated using a pillow case sling at the beginning of shift.
[2022-04-20] MEDS: oxyCODONE-APAP 5-325 mg Tablet 1 TAB PO ×3 (03:37→20:10)
--- NOTE | 2022-04-20 03:50 | PC.NURSE ---
Pt has expiratory wheezing and dyspnea with exertion. Wheezes not audible in lung lara. Pt had large amount of stool and urine mixed. Pt's penis remains very edematous, elevated on sling.
[2022-04-20 05:23] LABS: Basophils # 0.1 10^3/uL (0.0-0.1); Basophils % 0.7 %; Eosinophils # 0.4 10^3/uL (0.0-0.8); Eosinophils % 5.4 %; Hematocrit 34.7 % (42.0-52.0); Hemoglobin 10.6 g/dL (11.7-16.6); Lymphocytes # 0.8 10^3/uL (0.8-4.8); Lymphocytes % 9.5 %; Mean Corpuscular HGB Conc 30.5 g/dL (30.0-36.0); Mean Corpuscular Hemoglobin 29.1 pg (28.0-34.0); Mean Corpuscular Volume 95.3 fl (80-94); Mean Platelet Volume 10.4 fL (7.4-10.4); Monocytes % 12.7 %; Neutrophils # 5.56 10^3/uL (1.8-7.7); Neutrophils % 69.5 %; Nucleated Red Blood Cells % 0 %; Platelet Count 188 10^3/cmm (130-400); Red Blood Count 3.64 10^6/uL (4.1-5.3)
--- NOTE | 2022-04-20 06:55 | PC.NURSE ---
Bedside report completed with ANUP Clemente
--- NOTE | 2022-04-20 07:21 | P.PN_ITS ---
Subjective Subjective: Since the confusion regarding the chest tube output last evening, he has had a total of 55 mL out of the chest tubes combined. His blood pressure has been somewhat labile. Wellington catheter is out and there is no urine output recorded. Yesterday, his medications were adjusted because his blood pressure was on occasion low and then high. This morning it is 165/75. He remains on metoprolol 50 mg twice daily. He is also on aspirin and a statin. His hemoglobin is stable 10.6 this morning. Creatinine is stable 0.6. He seems to be feeling okay this morning. He has no complaints. The back pain is resolved. Vitals/I&O/Wt Last Vital Signs Temp 98.4 F 04/20/22 03:49 Pulse 72 04/20/22 06:30 Resp 17 04/20/22 06:30 BP 131/78 04/20/22 06:30 Pulse Ox 96 04/20/22 06:30 O2 Del Method 04/20/22 06:30 O2 Flow Rate 2 04/20/22 02:30 FiO2 3 04/16/22 06:30 04/19/22 04/20/22 04/20/22 22:59 06:59 14:59 Intake Total 720 / 1440 Output Total 900 / 900 25 / 925 Balance -180 / 540 -25 / 515 Weight last 48 hrs Weight 214 lb 8 oz Weight 215 lb 9.6 oz Physical Exam Narrative: GENERAL: In general he looks and feels well HEENT: Exam within normal limits. NECK: Supple without jugular vein distention. The carotid upstroke is normal without bruits. BACK: Exam normal. LUNGS: Clear. HEART: Regular rate and rhythm. ABDOMEN: Benign without organomegaly or tenderness. EXTREMITIES: No edema. NEUROLOGIC: Exam normal. SKIN: Unremarkable. Urinary Catheter Management: Wellington: Cath Placed During This Visit: yes, but has since been removed by the nurse Reason for Continuing Indwelling Catheter: Decision to DC Catheter Urinary Catheter Date of Insertion: 04/15/22 Urinary Catheter Time of Insertion: 07:00 Date Urinary Catheter Removed: 04/17/22 Time Urinary Catheter Discontinued: 06:36 Data : 04/20/22 04:30 04/19/22 04:00 A&P Assessment and plan (1) Status post aorto-coronary artery bypass graft: Status: Acute (2) Coronary artery disease due to calcified coronary lesion: Status: Acute (3) Hypertension: Status: Acute Qualifiers: Hypertension type: essential hypertension Qualified Code(s): I10 - Essential (primary) hypertension (4) Mixed hyperlipidemia: Status: Chronic Plan He seems to be doing okay. I am going to add a low-dose of an DENNISE inhibitor for his blood pressure. The chest tubes can probably come out today. The wound VAC can come off tomorrow. We need to monitor his urine output as there has been no record of that. Attestations Medical Necessity Statement*: Hospital stay for management of post coronary bypass surgery Coding Level of Care Code Established Pt Acute Water Supply Engineer for Chg Fwd Patient Type Established History Detailed Exam Detailed Medical Decision Making Moderate Complexity Diagnoses Status post aorto-coronary artery bypass graft Z95.1 Coronary artery disease due to calcified coronary lesion I25.10; I25.84 Hypertension I10 Hypertension type: essential hypertension Mixed hyperlipidemia E78.2
--- NOTE | 2022-04-20 08:15 | PC.NURSE ---
Sternal precautions and techniques for getting out of bed discussed. Pt then out of bed to chair at bedside. Pt able to support own weight gait very steady.
[2022-04-20 08:42] LABS: Glucose Point of Care 87 mg/dL (70-110)
[2022-04-20] MEDS: aspirin 81 mg Chew Tablet PO (09:11)
[2022-04-20] MEDS: metoprolol tartrate 50 mg Tablet PO ×2 (09:11→20:10)
--- NOTE | 2022-04-20 13:50 | PC.SOCIAL ---
IMM Updated Updated pt on IMM. No questions voiced. Provided pt a copy. Initialed, dated, & timed copy in chart.
--- NOTE | 2022-04-20 14:04 | P.PN_ITS ---
Subjective Subjective: No acute events overnight. Output from drains is very minimal at this time 50 cc and 5 cc from the other 1. Chest x-ray was repeated today to evaluate for pleural effusion. Due to 50 cc of output as soon as patient moved decision was made to operate on removal of tubes today. Patient was seen peripherally through chart review and followed. Discussed with nursing staff. No concerns at this time. Patient working with physical therapy at this time. He was not examined. He appeared very comfortable with no acute distress. Vitals/I&O/Wt Last Vital Signs Temp 98.2 F 04/20/22 12:00 Pulse 69 04/20/22 12:00 Resp 22 H 04/20/22 12:00 BP 108/64 04/20/22 12:00 Pulse Ox 98 04/20/22 12:00 O2 Del Method 04/20/22 12:00 O2 Flow Rate 0.5 04/20/22 08:00 FiO2 3 04/16/22 06:30 04/19/22 04/20/22 04/20/22 22:59 06:59 14:59 Intake Total 720 / 1440 400 / 400 Output Total 900 / 900 25 / 925 420 / 420 Balance -180 / 540 -25 / 515 -20 / -20 Weight last 48 hrs Weight 97.296 kg Weight 97.795 kg Physical Exam Narrative: Not examined today Urinary Catheter Management: [place]: Cath Placed During This Visit: yes, but has since been removed by the nurse Reason for Continuing Indwelling Catheter: Decision to DC Catheter Urinary Catheter Date of Insertion: 04/15/22 Urinary Catheter Time of Insertion: 07:00 Date Urinary Catheter Removed: 04/17/22 Time Urinary Catheter Discontinued: 06:36 Data : 04/20/22 04:30 04/19/22 04:00 A&P Assessment and plan (1) Status post aorto-coronary artery bypass graft: Status: Acute (2) Coronary artery disease due to calcified coronary lesion: Status: Acute (3) Dyspnea on exertion: Status: Acute (4) 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 Lipid profile complete. ? hemoglobin A1c 6.1 ? Continue aspirin, atorvastatin 40, metoprolol tartrate 25 twice daily ? Chest tube, mediastinal drain management as per cardiology and cardiothoracic surgery ? We will continue to follow patient -Refer to pulmonology at discharge for follow-up on lung nodule at discharge ? Hemoglobin 11 today, stable.. Patient is status post 2 units postop ? Leukocytosis appears to be reactive. Patient is afebrile. We will continue to monitor for infection. WBC down to 10.6 ? Continue routine postoperative care - XR chest to re-eval pleural effusion. Drain removal as per CT surgery. ? PT OT Full code Attestations 2 Medical Necessity Statement*: Defer to primary team Coding Level of Care Code Acute Sizing Machine Operator for Chg Fwd Diagnoses Status post aorto-coronary artery bypass graft Z95.1 Coronary artery disease due to calcified coronary lesion I25.10; I25.84 Dyspnea on exertion R06.09 Solid nodule of lung 6 mm to 8 mm in diameter R91.1 Hypertension I10 Hypertension type: essential hypertension Mixed hyperlipidemia E78.2
--- NOTE | 2022-04-20 14:08 | XRR_ITS ---
PROCEDURE INFORMATION: Exam: XR Chest Exam date and time: 04/20/2022 2:14 PM Age: 81 years old Clinical indication: Shortness of breath; Additional info: Follow-up cabg, chest tubes still in place TECHNIQUE: Imaging protocol: Radiologic exam of the chest. Views: 1 view. COMPARISON: CR (CHEST, ) 04/19/2022 8:15 AM FINDINGS: Tubes, catheters and devices: Left chest tube in place and similar in positioning to prior exam. Lungs: Less conspicuous left basilar opacity. No new consolidation. Pleural spaces: Less conspicuous left pleural effusion. No pneumothorax. Heart/Mediastinum: Mild cardiomegaly. Sequela of prior CABG. Bones/joints: Sternotomy wires noted. Visualized osseous structures are intact. XR/XR chest 1V portable [id number] IMPRESSION: Less conspicuous left basilar opacity and left pleural effusion.
--- NOTE | 2022-04-20 14:30 | PC.NURSE ---
Pt ambulated again around ICU unit. Gait steady. BSC used. Pt back to bed. Pin medication aide. Chest tube atrium changed out. Chest tube dressing changed. Pt tolerated well.
--- NOTE | 2022-04-20 19:01 | PC.NURSE ---
Bedside report completed with ANUP Clemente. Patient and family no questions.
--- NOTE | 2022-04-20 19:11 | PC.NURSE ---
Shift Note: Pt has been up in chair most of day. He has ambulated 3 times this shift. He has progressed to ambulating without walker. He has done well with sternal precautions. He remains on room air. Sinus rhythm with an occasional PVC on the monitor. Chest tube outputs: pleural 55ml serosangiouness fluid. Mediastinal 210ml of serosangiouness fluid. Wound vac intact and p atent He does had edema on his lower extremities and penis. He is eating half of his meals. Frequent safety and comfort rounds continue. Orders and/or nursing care completed as indicated. Patient monitored for response to intervention and treatment(s). Education provided includes plan of care, metoprolol, oxycodone, chest tubes and progress Patient and/or care support representative verbalized understanding of plan of care, medications and progress.. Will continue to monitor.
--- NOTE | 2022-04-20 19:48 | PC.NURSE ---
Pt ambulated approximately 100 feet with standby assistance. Pt became slightly wheezy and dyspneic with exertion, but tolerated well. He tells me, I'm not doing very well today. Pt assisted back into chair with legs elevated. He does not wish to get into bed until after pain medication is given.
[2022-04-20] MEDS: atorvastatin 40 mg Tablet PO (20:10)
--- NOTE | 2022-04-20 21:07 | PC.NURSE ---
Pt assisted back to bed. This movement causes him quite a bit of pain. I have asked that he request to focus on this activity with physical therapy tomorrow.
[2022-04-21] VITALS (30 sets, daily range): BP systolic 101–179; BP diastolic 61–100; PULSE 55–107; RESP 11–23; TEMP 36.5–36.9; O2SAT 92–99
--- NOTE | 2022-04-21 02:22 | PC.NURSE ---
Upon entering room to perform 0200 assessment, pt found in bed without clothing on. He tells me that he is trying to get out of this bed, so I can go to the bathroom. Pt easily reoriented and laughs at himself for trying to get up on his own. He tells me that he is embarrassed. Pt's left lung lara sound slightly more diminished.
[2022-04-21] MEDS: oxyCODONE-APAP 5-325 mg Tablet 1 TAB PO ×4 (02:38→20:31)
[2022-04-21 03:53] LABS: Basophils % 0.5 %; Eosinophils # 0.6 10^3/uL (0.0-0.8); Eosinophils % 6.6 %; Hematocrit 31.2 % (42.0-52.0); Lymphocytes # 0.9 10^3/uL (0.8-4.8); Lymphocytes % 10.8 %; Mean Corpuscular HGB Conc 32.1 g/dL (30.0-36.0); Mean Corpuscular Hemoglobin 29.8 pg (28.0-34.0); Mean Corpuscular Volume 92.9 fl (80-94); Monocytes # 1.2 10^3/uL (0.2-0.9); Monocytes % 14.7 %; Neutrophils # 5.23 10^3/uL (1.8-7.7); Neutrophils % 62.7 %; Nucleated Red Blood Cells % 0 %; Platelet Count 231 10^3/cmm (130-400); Red Blood Count 3.36 10^6/uL (4.1-5.3); Red Cell Distribution Width 13.7 % (12.1-15.1); White Blood Count 8.3 10^3/uL (4.0-10.0)
[2022-04-21 04:21] LABS: Anion Gap 10.8 (5-19); Blood Urea Nitrogen 18 mg/dL (8-23); Carbon Dioxide 26 mmol/L (22-29); Chloride 107 mmol/L (98-107); Creatinine Clr Calc Pharmacy 86.1396; Glucose 111 mg/dL (65-115); Osmolality Calculated 293 mOsm/kg (285-295); Potassium 3.8 mmol/L (3.5-5.1); Sodium 140 mmol/L (136-145)
--- NOTE | 2022-04-21 06:53 | USCV_ITS ---
Humza Shelley Age: 81 Gender: M : 1940 Exam Date: 04/21/2022 09:57 Ordering Phys: Angel Mckee MD (Andy) ([email or web address] [email or web address]) Technologist: Luis Felipe Lizarraga Exam Location: [facility] [place] Indication: ENLARGED CARDIAC SILHOUETTE BP: 133 / 80 HR: 85 Rhythm: Sinus Technical Quality: Adequate MEASUREMENTS (Male / Female) Normal Values 2D ECHO LV Diastolic Diameter PLAX 2.7 cm 4.2 - 5.9 / 3.9 - 5.3 cm LV Systolic Diameter PLAX 1.8 cm IVS Diastolic Thickness 0.9 cm 0.6 - 1.0 / 0.6 - 0.9 cm IVS Systolic Thickness 1.3 cm LVPW Diastolic Thickness 1.1 cm 0.6 - 1.0 / 0.6 - 0.9 cm LVPW Systolic Thickness 1.1 cm LV Ejection Fraction 2D Teich 64.5 % LV Ejection Fraction MOD 2C 65.3 % LV Ejection Fraction 2C AL 65.4 % LA Diameter 3.6 cm LA Width 3.8 cm LA Height 4.3 cm RA Width 3.1 cm RA Height 4.6 cm M-MODE Aortic Annulus Diameter 2.8 cm LA Ao Ratio MM 1.3 FINDINGS Left Ventricle Right Ventricle Right Atrium Left Atrium Mitral Valve Aortic Valve Tricuspid Valve Pulmonic Valve Pericardium Aorta IVC CONCLUSIONS This a limited echocardiogram performed to assess LV systolic function. Imaging is of limited quality because of poor ultrasonic windows. LV systolic function is normal with EF of 55 to 60%. No regional wall motion abnormalities are seen. Mark Rowland MD (Electronically Signed) Final Date: 21 April 2022 16:47 S
--- NOTE | 2022-04-21 06:55 | PC.NURSE ---
Bedside report completed with ANUP Clemente.
--- NOTE | 2022-04-21 07:04 | PM.PN ---
Subjective Subjective: Mr. Shelley's lab looks good today. He is up on the bedside toilet. He still has [address] I do note that his chest x-ray from yesterday does show a fairly substantial increase in his cardiac silhouette, though this may be somewhat exaggerated by positioning. I would recommend a bedside limited echo to assess for undrained pericardial fluid and gross estimate of LV function. Vitals/I&O/Wt Last Vital Signs Temp 98.4 F 04/20/22 19:32 Pulse 107 H 04/21/22 06:00 Resp 18 04/21/22 06:00 BP 143/89 04/21/22 06:00 Pulse Ox 96 04/21/22 06:00 O2 Del Method 04/21/22 06:00 O2 Flow Rate 0.5 04/20/22 08:00 FiO2 3 04/16/22 06:30 04/20/22 04/21/22 04/21/22 22:59 06:59 14:59 Intake Total 100 / 800 150 / 950 Output Total 150 / 885 291 / 1176 Balance -50 / -85 -141 / -226 Weight last 48 hrs Weight 216 lb 8 oz Weight 214 lb 8 oz Physical Exam Chest: OTHER: Chest wall is stable. Dressings are in place. Resp: OTHER: Basilar crackles. Cardio: OTHER: Slightly distant heart tones. This may be positional though we will reassess with echo. Urinary Catheter Management: [place]: Cath Placed During This Visit: yes, but has since been removed by the nurse Reason for Continuing Indwelling Catheter: Decision to DC Catheter Urinary Catheter Date of Insertion: 04/15/22 Urinary Catheter Time of Insertion: 07:00 Date Urinary Catheter Removed: 04/17/22 Time Urinary Catheter Discontinued: 06:36 Data : 04/21/22 03:23 04/21/22 03:23 A&P Assessment and plan (1) Status post aorto-coronary artery bypass graft: Status post CABG. Plan: Will await results of echo prior to discontinuing remaining drains. I do note still 240 cc drainage from the mediastinal drain. Confirm home health arrangements are in place. Greatly appreciate expertise and assistance of our hospitalist colleagues and Dr. Coughlin. Status: Acute Attestations Medical Necessity Statement*: Status post CABG Coding Level of Care Code Acute Civil Design Specialist for Chg Fwd Diagnoses Status post aorto-coronary artery bypass graft Z95.1
[2022-04-21] MEDS: aspirin 81 mg Chew Tablet PO (08:25)
[2022-04-21] MEDS: metoprolol tartrate 50 mg Tablet PO ×2 (08:26→20:30)
--- NOTE | 2022-04-21 09:59 | PC.CHAP ---
Pastoral Care Encounter/Spiritual Assessment Type of Contact [] Declined geophysical e logger visit [] Patient/Family/Request visit [] Outpatient visit [] Follow-up visit [] Physician referral [] Code/Alert [x] Routine visit [] Staff referral [] Actively dying [x] Patient sleeping [] Family support [] [] Out of room [] Palliative care [] [] Receiving care in room [] Pre-surgical visit [] Trauma [] Long length of stay [x] ICU visit [x] Other: heart surgery Relational/Emotional Strength [] Patient feels connected with others/family/visitors/staff [] Distress [] Loneliness/isolation [] Abandonment Spirituality of Patient [] Person of Kristine [] Attends Buddhist of their Kristine [] Believes in Prayer [] Reads Bible or Baptism materials [] There are Spiritual issues to be addressed Geophysical E Logger Interventions [x] Prayer [] Active listening [] Non-anxious presence [] Spiritual/emotional support [] Crisis/trauma care [] Spiritual counseling [] Bereavement support [] Provided bereavement packet [] Provided Bible/devotional materials [] Provided toy/stuffed animal, coloring book to patient or family member [] Provided Communion [] Anointing/[place]man [] Salvation [x] Completed spiritual assessment [] Other: Impact on Illness or Injury [] Angry [] Fearful [] Anxious [] Often cries [] Exhaustion [] Unable to work [] Unable to attend mormon [] Unable to walk/stand [] Unable to read [] Unable to drive [] Unable to eat/drink [] Unable to sleep [] Unable to be with family [] Patient intubated [] Other: Summary Time spent with patient
--- NOTE | 2022-04-21 10:29 | P.PN_ITS ---
Subjective Subjective: Patient is stable. No chest pain. Limited echo done today shows preserved LV function Vitals/I&O/Wt Last Vital Signs Temp 98.5 F 04/21/22 07:00 Pulse 71 04/21/22 10:00 Resp 23 H 04/21/22 10:00 BP 121/61 04/21/22 10:00 Pulse Ox 95 04/21/22 10:00 O2 Del Method 04/21/22 10:00 O2 Flow Rate 0.5 04/20/22 08:00 FiO2 3 04/16/22 06:30 04/20/22 04/21/22 04/21/22 22:59 06:59 14:59 Intake Total 100 / 800 150 / 950 300 / 300 Output Total 150 / 885 291 / 1176 300 / 300 Balance -50 / -85 -141 / -226 0 / 0 Weight last 48 hrs Weight 216 lb 8 oz Weight 214 lb 8 oz Physical Exam Narrative: GENERAL: Patient is alert, awake and oriented x3. [] NECK: No jugular vein distension. [] HEART: Regular S1 and S2. No murmur, rub or gallop. [] LUNGS: Clear to auscultate bilaterally. [] ABDOMEN: Soft CENTRAL NERVOUS SYSTEM: Grossly nonfocal. [] EXTREMITIES: Lower extremities with 1+ edema bilaterally. Urinary Catheter Management: [place]: Cath Placed During This Visit: yes, but has since been removed by the nurse Reason for Continuing Indwelling Catheter: Decision to DC Catheter Urinary Catheter Date of Insertion: 04/15/22 Urinary Catheter Time of Insertion: 07:00 Date Urinary Catheter Removed: 04/17/22 Time Urinary Catheter Discontinued: 06:36 Data : 04/21/22 03:23 04/21/22 03:23 A&P Assessment and plan (1) Status post aorto-coronary artery bypass graft: Status: Acute (2) Coronary artery disease due to calcified coronary lesion: Status: Acute (3) Hypertension: Status: Acute Qualifiers: Hypertension type: essential hypertension Qualified Code(s): I10 - Essential (primary) hypertension (4) Mixed hyperlipidemia: Status: Chronic Plan Patient is overall stable.ECHO done today shows normal LV systolic function Continue current medications. His BP is labile Chest tube management per Dr Mckee Thank you for involving us with care of this patient. We will continue to follow. Please call with questions Attestations Medical Necessity Statement*: Care expected to cross 2 midnights. Coding Level of Care Code Acute Program Management Professional for Ivelisseg Fwd Diagnoses Status post aorto-coronary artery bypass graft Z95.1 Coronary artery disease due to calcified coronary lesion I25.10; I25.84 Hypertension I10 Hypertension type: essential hypertension Mixed hyperlipidemia E78.2
[2022-04-21] MEDS: perflutren protein-a microsphr 0.22 mg/mL SDV 3 mL IV (11:09)
--- NOTE | 2022-04-21 12:28 | P.PN_ITS ---
Subjective Subjective: Drainage output 280 cc in last 24 hours. Now it is minimal. 5 cc per drain. He does not have any symptoms at this time. He is doing well sitting up in recliner. He walked with physical therapy 4 times yesterday and walked again this morning. Denies chest pain, shortness of breath, nausea, vo miting. Does not offer any complaints at this time. Cardiology repeating an echocardiogram today. Vitals/I&O/Wt Last Vital Signs Temp 98.5 F 04/21/22 07:00 Pulse 71 04/21/22 10:00 Resp 23 H 04/21/22 10:00 BP 121/61 04/21/22 10:00 Pulse Ox 95 04/21/22 10:00 O2 Del Method 04/21/22 10:00 O2 Flow Rate 0.5 04/20/22 08:00 FiO2 3 04/16/22 06:30 04/20/22 04/21/22 04/21/22 22:59 06:59 14:59 Intake Total 100 / 800 150 / 950 300 / 300 Output Total 150 / 885 291 / 1176 300 / 300 Balance -50 / -85 -141 / -226 0 / 0 Weight last 48 hrs Weight 98.203 kg Weight 97.296 kg Physical Exam Narrative: General: Alert oriented x3, no acute distress. HEENT: Normocephalic, atraumatic, EOMI, breathing normally, no acute distress Cardio: Regular rate rhythm, normal S1-S2, no gross murmurs, chest wound VAC in place. Respiratory: Clear to auscultation bilaterally, no wheezes no rhonchi, GI: Abdomen soft, nontender, nondistended, bowel sounds + Extremities: Pulses palpable dorsalis pedis, 1+ bilateral edema bilateral lower extremities Urinary Catheter Management: [place]: Cath Placed During This Visit: yes, but has since been removed by the nurse Reason for Continuing Indwelling Catheter: Decision to DC Catheter Urinary Catheter Date of Insertion: 04/15/22 Urinary Catheter Time of Insertion: 07:00 Date Urinary Catheter Removed: 04/17/22 Time Urinary Catheter Discontinued: 06:36 Data : 04/21/22 03:23 04/21/22 03:23 A&P Assessment and plan (1) Status post aorto-coronary artery bypass graft: Status: Acute (2) Coronary artery disease due to calcified coronary lesion: Status: Acute (3) Dyspnea on exertion: Status: Acute (4) 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 Lipid profile complete. ? hemoglobin A1c 6.1 ? Continue aspirin, atorvastatin 40, metoprolol tartrate 25 twice daily ? Chest tube, mediastinal drain management as per cardiology and cardiothoracic surgery ? We will continue to follow patient -Refer to pulmonology at discharge for follow-up on lung nodule at discharge ? Hemoglobin 11stable.. Patient is status post 2 units postop ? Leukocytosis appears to be reactive. Patient is afebrile. We will continue to monitor for infection. WBC down to 10.6 ? Continue routine postoperative care - XR chest to re-eval pleural effusion. Drain removal as per CT surgery. -Echo being repeated today. Possibly wound VAC and drains will be removed today. ? PT OT Full code Attestations Medical Necessity Statement*: Defer to primary team Coding Level of Care Code Acute Reading Efficiency Course Director for g Fwd Diagnoses Status post aorto-coronary artery bypass graft Z95.1 Coronary artery disease due to calcified coronary lesion I25.10; I25.84 Dyspnea on exertion R06.09 Solid nodule of lung 6 mm to 8 mm in diameter R91.1 Hypertension I10 Hypertension type: essential hypertension Mixed hyperlipidemia E78.2
--- NOTE | 2022-04-21 19:00 | PC.NURSE ---
Pt out of bed. H ambulated with stand by by assist 1 lap around unit, approx 100 f. then to [facility] [place], [place]inated. Pt assisted back to bed. Pt c/o of itching around dressing. Dr Mckee notified. Orders for Benadryl received.
--- NOTE | 2022-04-21 19:05 | PC.NURSE ---
Bedside report completed with ANUP Guzman
--- NOTE | 2022-04-21 19:50 | PC.NURSE ---
Shift Note: Pt has remained in sinus rhythm on monitor. He still has an occasional PVC but less than yesterday. Pt has been out of bed several times this sift to sit in chair, BSC and to ambulate. he has ambulated 3 times tis shift.. Echo completed. Dr Mckee removed chest tubes and wound vac this afternoon. Pt has needed pain medication twice this shift. He has had adequate urine output, see I& Os. Family has been at bedside throughout the shift very attentive and supportive of pt. Frequent safety and comfort rounds continue. Orders and/or nursing care completed as indicated. Patient monitored for response to intervention and treatment(s). Education provided includes sternal precautions, coughing, Oxycodone and plan of care. Patient and/or inside account representative verbalized understanding to all topics and plan of care.. Will continue to monitor.
[2022-04-21] MEDS: diphenhydrAMINE 25 mg Capsule PO (20:30)
[2022-04-21] MEDS: atorvastatin 40 mg Tablet PO (20:30)
[2022-04-22] VITALS (15 sets, daily range): BP systolic 111–154; BP diastolic 63–88; PULSE 60–72; RESP 14–23; TEMP 36.6–37.4; O2SAT 94–99
--- NOTE | 2022-04-22 07:35 | P.PN_ITS ---
Subjective Subjective: Up in chair on rounds today. In good spirits. Positive BM yesterday. No arrhythmias reported by nurses. Tolerating diet well. Vitals/I&O/Wt Last Vital Signs Temp 98.4 F 04/21/22 22:00 Pulse 64 04/22/22 05:50 Resp 16 04/22/22 05:50 BP 154/82 04/22/22 05:50 Pulse Ox 97 04/22/22 05:50 O2 Del Method 04/22/22 05:50 O2 Flow Rate 0.5 04/20/22 08:00 FiO2 3 04/16/22 06:30 04/21/22 04/22/22 04/22/22 22:59 06:59 14:59 Intake Total 500 / 1100 100 / 1200 Output Total 229 / 534 Balance 271 / 566 100 / 666 Weight last 48 hrs Weight 218 lb 3.2 oz Weight 216 lb 8 oz Physical Exam 2 Chest: COMMONS NORMALS: normal inspection of the chest and normal palpation of entire chest wall Resp: COMMON NORMALS: normal respiratory effort and clear to auscultation bilaterally AUSCULTATION: clear to auscultation bilaterally Cardio: COMMON NORMALS: regular rate, regular rhythm, No murmurs present (Cardio) and No rub (Cardio) RATE: regular rate RHYTHM: regular rhythm GI: COMMON NORMALS: Normal to inspection, nondistended, normoactive bowel sounds present Extremity: NARRATIVE EXTREMITY EXAM: Peripheral edema has almost completely resolved. Urinary Catheter Management: [place]: Cath Placed During This Visit: yes, but has since been removed by the nurse Reason for Continuing Indwelling Catheter: Decision to DC Catheter Urinary Catheter Date of Insertion: 04/15/22 Urinary Catheter Time of Insertion: 07:00 Date Urinary Catheter Removed: 04/17/22 Time Urinary Catheter Discontinued: 06:36 Data : 04/21/22 03:23 04/21/22 03:23 A&P Assessment and plan (1) Status post aorto-coronary artery bypass graft: Making nice progress status post CABG. Drains were discontinued yesterday. Plan: Shower today. Confirm home health referral has been completed. We will tentatively plan for discharge tomorrow morning. Greatly appreciate expertise and oversight by Dr. Rowland. Status: Acute Attestations Medical Necessity Statement*: Status post CABG. Coding Level of Care Code Acute Certifed Refrigeration Operator for Chg Fwd Diagnoses Status post aorto-coronary artery bypass graft Z95.1
[2022-04-22] MEDS: aspirin 81 mg Chew Tablet PO (08:25)
[2022-04-22] MEDS: metoprolol tartrate 50 mg Tablet PO ×2 (08:25→20:05)
--- NOTE | 2022-04-22 09:08 | PM.PN ---
Subjective Subjective: Patient is overall doing well. No complaints of chest pain Vitals/I&O/Wt Last Vital Signs Temp 98.8 F 04/22/22 07:30 Pulse 71 04/22/22 08:00 Resp 22 H 04/22/22 08:00 BP 136/77 04/22/22 08:00 Pulse Ox 96 04/22/22 08:00 O2 Del Method 04/22/22 08:00 O2 Flow Rate 0.5 04/20/22 08:00 FiO2 3 04/16/22 06:30 04/21/22 04/22/22 04/22/22 22:59 06:59 14:59 Intake Total 500 / 1100 100 / 1200 Output Total 229 / 534 Balance 271 / 566 100 / 666 Weight last 48 hrs Weight 218 lb 3.2 oz Weight 216 lb 8 oz Physical Exam Narrative: GENERAL: Patient is alert, awake and oriented x3. [] NECK: No jugular vein distension. [] HEART: Regular S1 and S2. No murmur, rub or gallop. [] LUNGS: Clear to auscultate bilaterally. [] ABDOMEN: Soft CENTRAL NERVOUS SYSTEM: Grossly nonfocal. [] EXTREMITIES: Lower extremities with 1+ edema bilaterally. Urinary Catheter Management: [place]: Cath Placed During This Visit: yes, but has since been removed by the nurse Reason for Continuing Indwelling Catheter: Decision to DC Catheter Urinary Catheter Date of Insertion: 04/15/22 Urinary Catheter Time of Insertion: 07:00 Date Urinary Catheter Removed: 04/17/22 Time Urinary Catheter Discontinued: 06:36 Data : 04/21/22 03:23 04/21/22 03:23 A&P Assessment and plan (1) Status post aorto-coronary artery bypass graft: Status: Acute (2) Coronary artery disease due to calcified coronary lesion: Status: Acute (3) Hypertension: Status: Acute Qualifiers: Hypertension type: essential hypertension Qualified Code(s): I10 - Essential (primary) hypertension (4) Mixed hyperlipidemia: Status: Chronic Plan Patient is stable. We will start lisinopril today as BP is still borderline elevated. Plan for discharge tentatively tomorrow Thank you for involving us with care of this patient. We will continue to follow. Please call with questions Attestations Medical Necessity Statement*: Care expected to cross 2 midnights. Coding Level of Care Code Acute Electronics Commodity Manager for Ivelisseg Fwd Diagnoses Status post aorto-coronary artery bypass graft Z95.1 Coronary artery disease due to calcified coronary lesion I25.10; I25.84 Hypertension I10 Hypertension type: essential hypertension Mixed hyperlipidemia E78.2
[2022-04-22] MEDS: lisinopril 5 mg Tablet PO (09:31)
--- NOTE | 2022-04-22 14:40 | P.PN_ITS ---
Subjective Subjective: No acute events overnight. Patient doing well. Wound VAC removed. Mediastinal drains also removed. Patient doing well. Vitals/I&O/Wt Last Vital Signs Temp 98.8 F 04/22/22 07:30 Pulse 67 04/22/22 14:13 Resp 23 H 04/22/22 14:00 BP 117/68 04/22/22 14:00 Pulse Ox 99 04/22/22 14:00 O2 Del Method 04/22/22 14:00 O2 Flow Rate 0.5 04/20/22 08:00 FiO2 3 04/16/22 06:30 04/21/22 04/22/22 04/22/22 22:59 06:59 14:59 Intake Total 500 / 1100 100 / 1200 462 / 462 Output Total 229 / 534 200 / 200 Balance 271 / 566 100 / 666 262 / 262 Weight last 48 hrs Weight 98.974 kg Weight 98.203 kg Physical Exam Narrative: General: Alert oriented x3, no acute distress. HEENT: Normocephalic, atraumatic, EOMI, breathing normally, no acute distress Cardio: Regular rate rhythm, normal S1-S2, no gross murmurs, Respiratory: Clear to auscultation bilaterally, no wheezes no rhonchi, GI: Abdomen soft, nontender, nondistended, bowel sounds + Extremities: Pulses palpable dorsalis pedis, 1+ bilateral edema bilateral lower extremities Urinary Catheter Management: [place]: Cath Placed During This Visit: yes, but has since been removed by the nurse Reason for Continuing Indwelling Catheter: Decision to DC Catheter Urinary Catheter Date of Insertion: 04/15/22 Urinary Catheter Time of Insertion: 07:00 Date Urinary Catheter Removed: 04/17/22 Time Urinary Catheter Discontinued: 06:36 Data : 04/21/22 03:23 04/21/22 03:23 A&P Assessment and plan (1) Status post aorto-coronary artery bypass graft: Status: Acute (2) Coronary artery disease due to calcified coronary lesion: Status: Acute (3) Dyspnea on exertion: Status: Acute (4) 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 Lipid profile complete. ? hemoglobin A1c 6.1 ? Continue aspirin, atorvastatin 40, metoprolol tartrate 25 twice daily ? Chest tube, mediastinal drain management as per cardiology and cardiothoracic surgery ? We will continue to follow patient -Refer to pulmonology at discharge for follow-up on lung nodule at discharge ? Hemoglobin 11stable.. Patient is status post 2 units postop ? Leukocytosis appears to be reactive. Patient is afebrile. We will continue to monitor for infection. WBC down to 10.6 ? Continue routine postoperative care -Echo repeated and reviewed. ? Plan to send patient with home health in a.m as per CT surgery. ? PT OT Full code Attestations Medical Necessity Statement*: Defer to primary team Coding Level of Care Code Acute [employer] for Chg Fwd Diagnoses Status post aorto-coronary artery bypass graft Z95.1 Coronary artery disease due to calcified coronary lesion I25.10; I25.84 Dyspnea on exertion R06.09 Solid nodule of lung 6 mm to 8 mm in diameter R91.1 Hypertension I10 Hypertension type: essential hypertension Mixed hyperlipidemia E78.2
--- NOTE | 2022-04-22 19:31 | PC.NURSE ---
Shift Note Frequent safety and comfort rounds continue. Orders and/or nursing care completed as indicated. Patient monitored for response to intervention and treatment(s). Education provided includes Sternal precautions, incision care and infection prevention, IS and Flutter valve use and importance of ambulation. Patient verbalized understanding of all teachings. Patient ambulated around unit three times this shift with minimal assistance. Patient frequently used IS. Patient had shower today on first floor and case management and nurse answered all patient and family questions about care at home.
[2022-04-22] MEDS: atorvastatin 40 mg Tablet PO (20:05)
[2022-04-23] VITALS (7 sets, daily range): BP systolic 141–166; BP diastolic 70–82; PULSE 61–70; RESP 18–22; TEMP 36.6–37.2; O2SAT 95–97
[2022-04-23 03:48] LABS: Basophils % 0.4 %; Eosinophils # 0.6 10^3/uL (0.0-0.8); Eosinophils % 5.6 %; Hematocrit 32.4 % (42.0-52.0); Hemoglobin 10.1 g/dL (11.7-16.6); Lymphocytes % 10.2 %; Mean Corpuscular HGB Conc 31.2 g/dL (30.0-36.0); Mean Corpuscular Hemoglobin 28.9 pg (28.0-34.0); Mean Corpuscular Volume 92.8 fl (80-94); Mean Platelet Volume 9.7 fL (7.4-10.4); Monocytes # 1.1 10^3/uL (0.2-0.9); Monocytes % 10.8 %; Neutrophils # 6.94 10^3/uL (1.8-7.7); Neutrophils % 68.2 %; Nucleated Red Blood Cells % 0 %; Platelet Count 347 10^3/cmm (130-400); Red Blood Count 3.49 10^6/uL (4.1-5.3); Red Cell Distribution Width 13.5 % (12.1-15.1); White Blood Count 10.2 10^3/uL (4.0-10.0)
[2022-04-23 04:13] LABS: Anion Gap 11.6 (5-19); Blood Urea Nitrogen 13 mg/dL (8-23); Calcium 9.4 mg/dL (8.5-10.5); Carbon Dioxide 27 mmol/L (22-29); Chloride 105 mmol/L (98-107); Glucose 124 mg/dL (65-115); Magnesium 2.2 mg/dL (1.7-2.3); Osmolality Calculated 292 mOsm/kg (285-295); Potassium 3.6 mmol/L (3.5-5.1); Sodium 140 mmol/L (136-145)
--- NOTE | 2022-04-23 06:15 | P.DS_ITS ---
Discharge Providers Date of Admission: 04/15/22 14:12 Date of Discharge: April 23, 2022 Attending Provider at Admission: Angel Mckee MD Attending Provider at Discharge: Angel Mckee MD Consults: Dr. Hillman: Hospitalist Service Dr. Rowland: Cardiology Dr. Coughlin: Cardiology Primary Care Provider: SENDY Hunter Diagnoses at Discharge Discharge Diagnosis (1) Status post aorto-coronary artery bypass graft: Status: Acute (2) Coronary artery disease due to calcified coronary lesion: Status: Acute (3) Hypertension: Status: Acute Qualifiers: Hypertension type: essential hypertension Qualified Code(s): I10 - Essential (primary) hypertension (4) Mixed hyperlipidemia: Status: Chronic Reason for Visit Reason for Visit: I25.10 Atherosclerotic heart disease of [place] Hospital Course Hospital Course Mr. Shelley is a 81-year-old gentleman with a history of dyspnea with exertion and increasing fatigue. Previous noninvasive testing has included nuclear imaging revealing ischemia in the LAD distribution. Left heart catheterization performed by Dr. Rowland on November 26. Study revealed distal left main stenosis involving high-grade proximal LAD lesion. He also had a proximal ramus artery with diminutive circumflex. He was referred to consider surgery revascularization due to his left main involvement. After careful outpatient evaluation he underwent CABG x2 on April 15. Postoperatively, he convalesced in the ICU where he made rapid progress. He required no inotrope support after 6 hours. He remained stable throughout his hospital stay. No substantial arrhythmias. Moderate volume expansion was corrected with diuresis with good effect. He has progressed daily without incident. He has been Evaluated by Dr. Rowland as well as Dr. Coughlin and Dr. Hillman from our hospitalist service. They covered during a period of my absence off the service. He is tolerating a diet well. Normal bowel and bladder function. All drains have been removed. Incision is clean and dry. Chest wall is stable. Good use of incentive spirometry. In early retained left pleural effusion evacuated spontaneously with ambulation prior to chest tube removal. Lungs are clear by exam. Cardiac exam is unremarkable. Peripheral edema has resolved. He will be discharged home today with home health services. At the time of discharge, he is in stable condition. Physical Exam Const: COMMON NORMALS: patient oriented x3 Chest: COMMONS NORMALS: normal inspection of the chest and normal palpation of entire chest wall OTHER: Incisions are clean and dry. Drain sites are well approximated. Chest wall is stable. Resp: COMMON NORMALS: normal respiratory effort, No use of accessory muscles and clear to auscultation bilaterally AUSCULTATION: clear to auscultation bilaterally Cardio: COMMON NORMALS: regular rate, regular rhythm, S1 normal heart sound present and No murmurs present (Cardio) RATE: regular rate RHYTHM: regular rhythm HEART SOUNDS: S1 normal heart sound present GI: COMMON NORMALS: Normal to inspection, nondistended, normoactive bowel sounds present Extremity: COMMON NORMALS: no clubbing, cyanosis or edema Neuro: COMMON NORMALS: patient oriented x3, no focal motor deficits, no sensory deficits noted and gait normal Urinary Catheter Management: [place]: Cath Placed During This Visit: yes, but has since been removed by the nurse Reason for Continuing Indwelling Catheter: Decision to DC Catheter Urinary Catheter Date of Insertion: 04/15/22 Urinary Catheter Time of Insertion: 07:00 Date Urinary Catheter Removed: 04/17/22 Time Urinary Catheter Discontinued: 06:36 Discharge Data Studies Completed and Pending Completed Studies During Hospitalization Category Date Time Status XR chest 1V portable [id number] Routine Exams 04/15/22 08:12 Completed XR chest 1V portable [id number] Routine Exams 04/16/22 04:00 Completed XR chest 1V portable [id number] Routine Exams 04/16/22 14:00 Completed XR chest 1V portable [id number] Routine Exams 04/17/22 04:23 Completed XR chest 1V portable [id number] Routine Exams 04/19/22 07:20 Completed XR chest 1V portable [id number] Urgent Exams 04/20/22 14:08 Completed CV. echo limited [id number] Stat Ultrasound 04/15/22 16:57 Completed CV. echo lmt w/w contras [id number] Routine Ultrasound 04/21/22 06:53 Completed Pending at discharge Category Date Time Status Complete Crossmatch Routine Lab 04/10/22 10:08 Results Leukocyte Reduced RBC Routine Lab 04/10/22 10:08 Results Leukrd/Plat Pheresis 1st Cont Routine Lab 04/10/22 10:08 Results Type and Screen - Cardiac Routine Lab 04/10/22 10:08 Results Radiology Impressions Chest X-Ray 04/20/22 14:08 IMPRESSION: Less conspicuous left basilar opacity and left pleural effusion. Laboratory Results WBC 10.2 10^3/uL (4.0-10.0) H 04/23/22 03:34 RBC 3.49 10^6/uL (4.1-5.3) L 04/23/22 03:34 Hgb 10.1 g/dL (11.7-16.6) L 04/23/22 03:34 Hct 32.4 % (42.0-52.0) L 04/23/22 03:34 MCV 92.8 fl (80-94) 04/23/22 03:34 MCH 28.9 pg (28.0-34.0) 04/23/22 03:34 MCHC 31.2 g/dL (30.0-36.0) 04/23/22 03:34 RDW 13.5 % (12.1-15.1) 04/23/22 03:34 Plt Count 347 10^3/cmm (130-400) 04/23/22 03:34 MPV 9.7 fL (7.4-10.4) 04/23/22 03:34 Neut % (Auto) 68.2 % 04/23/22 03:34 Lymph % (Auto) 10.2 % 04/23/22 03:34 [place] % (Auto) 10.8 % 04/23/22 03:34 Eos % (Auto) 5.6 % 04/23/22 03:34 Baso % (Auto) 0.4 % 04/23/22 03:34 Neut # (Auto) 6.94 10^3/uL (1.8-7.7) 04/23/22 03:34 Lymph # (Auto) 1.0 10^3/uL (0.8-4.8) 04/23/22 03:34 [place] # (Auto) 1.1 10^3/uL (0.2-0.9) H 04/23/22 03:34 Eos # (Auto) 0.6 10^3/uL (0.0-0.8) 04/23/22 03:34 Baso # (Auto) 0.0 10^3/uL (0.0-0.1) 04/23/22 03:34 Nucleated RBC % (auto) 0 % 04/23/22 03:34 Nucleated RBCs # 0.0 /100WBC 04/23/22 03:34 PT 19.30 SECONDS (12.1-14.9) H 04/16/22 03:10 INR 1.59 (0.8-1.2) H 04/16/22 03:10 APTT 36.1 SECONDS (23.9-36.7) 04/16/22 03:10 Specimen Type Arterial 04/16/22 05:10 Sample Site Art line 04/16/22 05:10 ABG pH 7.39 (7.35-7.45) 04/16/22 05:10 ABG pCO2 34.1 mmHg (35-45) L 04/16/22 05:10 ABG pO2 77.0 mmHg (80.0-100.0) L 04/16/22 05:10 ABG HCO3 20.4 mmol/L (22-26) L 04/16/22 05:10 ABG O2 Saturation 97.0 04/16/22 05:10 ABG Base Excess -4.1 mmol/L (-2.0-2.0) L 04/16/22 05:10 Edmundo Test Pos 04/16/22 05:10 A-a O2 Gradient 12.2 mmHg (5-10) H 04/16/22 05:10 Hematocrit 25.7 % (42-52) L 04/16/22 05:10 Hgb O2 Saturation 94.5 % (95-100) L 04/16/22 05:10 Carboxyhemoglobin 1.3 %THgb (0.4-20.1) 04/16/22 05:10 Methemoglobin 1.3 % (0.4-1.5) 04/16/22 05:10 Total Hemoglobin 8.4 g/dL (14-18) L 04/16/22 05:10 Sodium 142.0 mmol/L (131-143) 04/16/22 05:10 Potassium 3.8 mmol/L (3.5-5.0) 04/16/22 05:10 Glucose 124.0 mg/dL (70-115) H 04/16/22 05:10 Ionized Calcium 1.2 mmol/L (1.1-1.4) 04/16/22 05:10 O2 Delivery Device Vent 04/16/22 05:10 FiO2 30.0 % 04/16/22 05:10 Tidal Volume 0.65 04/16/22 03:56 PEEP 5.0 cmH20 04/16/22 05:10 Business Process Analyst ID Monro 04/16/22 05:10 Sodium 140 mmol/L (136-145) 04/23/22 03:34 Potassium 3.6 mmol/L (3.5-5.1) 04/23/22 03:34 Chloride 105 mmol/L (98-107) 04/23/22 03:34 Carbon Dioxide 27 mmol/L (22-29) 04/23/22 03:34 Anion Gap 11.6 (5-19) 04/23/22 03:34 BUN 13 mg/dL (8-23) 04/23/22 03:34 Creatinine 0.6 mg/dL (0.7-1.2) L 04/23/22 03:34 GFR Calculation Not Reportable 04/23/22 03:34 Glucose 124 mg/dL (65-115) H 04/23/22 03:34 POC Glucose 87 mg/dL (70-110) 04/20/22 08:39 Fasting Glucose 121 mg/dL (74-106) H 04/16/22 03:10 Estimat Average Glucose 131 04/18/22 06:20 Hemoglobin A1c 6.2 % (4.0-6.0) H 04/18/22 06:20 Calculated Osmolality 292 mOsm/kg (285-295) 04/23/22 03:34 Calcium 9.4 mg/dL (8.5-10.5) 04/23/22 03:34 Magnesium 2.2 mg/dL (1.7-2.3) 04/23/22 03:34 Total Bilirubin 0.7 mg/dL (0.15-1.2) 04/19/22 04:00 Direct Bilirubin 0.20 mg/dL (0.00-0.30) 04/10/22 10:08 AST 98 U/L (0-40) H 04/19/22 04:00 ALT 72 U/L (0-41) H 04/19/22 04:00 Alkaline Phosphatase 76 U/L (40-130) 04/19/22 04:00 Total Protein 5.9 g/dL (6.6-8.7) L 04/19/22 04:00 Albumin 3.1 g/dL (3.5-5.2) L 04/19/22 04:00 Globulin 2.8 g/dL (1.3-4.6) 04/19/22 04:00 Triglycerides 74 mg/dL (0-150) 04/18/22 06:20 Cholesterol 88 mg/dL (0-200) 04/18/22 06:20 LDL Cholesterol, Calc 47 mg/dL (50-129) L 04/18/22 06:20 HDL Cholesterol 26 mg/dL (60-100) L 04/18/22 06:20 LDL/HDL Ratio 1.81 RATIO (0.00-3.22) 04/18/22 06:20 Cholesterol/HDL Ratio 3.38 mg/dL (1.0-5.00) 04/18/22 06:20 TSH 1.12 uIU/mL (0.27-4.20) 04/10/22 10:08 Free T4 1.19 ng/dL (0.82-1.77) 04/10/22 10:08 Urine Color Yellow (Yellow) 04/10/22 10:17 Urine Appearance Clear (CLEAR) 04/10/22 10:17 Urine pH 7 (5-7) 04/10/22 10:17 Ur Specific [place] 1.010 (1.005-1.030) 04/10/22 10:17 Urine Protein Neg (Negative) 04/10/22 10:17 Urine Glucose (UA) Norm (Normal) 04/10/22 10:17 Urine Ketones Negative (Negative) 04/10/22 10:17 Urine Blood Neg (Negative) 04/10/22 10:17 Urine Nitrate Negative (Negative) 04/10/22 10:17 Urine Bilirubin Neg (Negative) 04/10/22 10:17 Urine Urobilinogen Norm mg/dL (Negative) 04/10/22 10:17 Ur Leukocyte Esterase Negative (Negative) 04/10/22 10:17 Blood Type O Positive 04/10/22 10:08 Rho(D) Type Positive 04/10/22 10:08 Antibody Screen Negative 04/10/22 10:08 Crossmatch See Detail 04/10/22 10:08 Procedures Performed CABG x2 on April 15, 2022 Vitals Last Vital Signs Temp 98.2 F 04/23/22 04:00 Pulse 68 04/23/22 06:00 Resp 18 04/22/22 18:00 BP 139/75 04/22/22 18:00 Pulse Ox 95 04/22/22 18:00 O2 Del Method 04/22/22 18:00 O2 Flow Rate 0.5 04/20/22 08:00 FiO2 3 04/16/22 06:30 Discharge Plan Discharge Patient Disposition: Home Health Service Condition: Stable Prescriptions: New oxycodone-acetaminophen 5-325 mg Tablet 1 tab PO Q8H PRN (Reason: Moderate Pain) Qty: 30 0RF metoprolol tartrate 50 mg Tablet 50 mg PO BID@00,2100 Qty: 60 4RF lisinopril 5 mg Tablet 5 mg PO DAILY Qty: 30 4RF Continued nitroglycerin 0.4 mg tablet, sublingual 0.4 mg sublingual Q5M PRN (Reason: chest pain) Qty: 25 0RF Rx Instructions: do not exceed 3 doses per episode aspirin [Adult Low Dose Aspirin] 81 mg tablet,delayed release (DR/EC) 81 mg PO DAILY Qty: 90 3RF rosuvastatin 20 mg tablet 20 mg PO DAILY Qty: 90 3RF amlodipine 5 mg Tablet 5 mg PO DAILY Qty: 90 3RF metoprolol tartrate 50 mg Tablet 50 mg PO BID@00,2100 Qty: 120 2RF Discharge Orders: Discharge Order (Routine); Ordered 04/23/22 Ordered By: Angel Mckee Other Ambulatory Orders: DME: Miscellaneous (Order) Location: None Selected Ordered By: Rebecca Hillman DME: Walker (Order) Location: None Selected Ordered By: Rebecca Hillman Referrals: [facility] [Outside] Manuel De Paz MD [Physician] - 2 weeks (pulmonary nodule) Angel Mckee MD [Physician] - 1 week Discharge Diet: Cardiac Discharge Activity: Limit activity as instructed Patient Instructions: Opioid Safety Activity Restrictions/Additional Instructions: May shower daily with incisions uncovered. Dry incisions completely after shower. May cover or leave open if desired. No swimming or tub baths x4 weeks. No lifting more than 5 pounds with arms for 8 weeks. Use incentive spirometer frequently. Elevate legs when possible Contact office with any concerns such as fever, chills, redness of incision, increased pain of incision, drainage from incision, shortness of breath, increasing chest pain, or increasing swelling in legs. May prefer to sleep in recliner or with back and head elevated for the next several days after discharge. May cover incisions daily as desired to prevent irritation from clothing. Discharge Attestations Time Spent in Discharge Care*: less than 30 min Specific Discharge Activities: educating patient, discussing with pcp/other providers, discussing with case making machine operator/social workers/dc planners, documenting/other paperwork and evaluating patient/reviewing data Status at Discharge: Cognitive status at discharge: cognitively intact , Behavioral status at discharge: cooperative , Functional status at discharge: independent ambulation , Overall status at discharge: patient is progressing back to baseline Quality Metrics Clinical Quality Measures [ No reported AMI, CVA or VTE this stay] Coding Level of Care Code Acute Chg FW DC note Diagnoses Status post aorto-coronary artery bypass graft Z95.1 Coronary artery disease due to calcified coronary lesion I25.10; I25.84 Hypertension I10 Hypertension type: essential hypertension Mixed hyperlipidemia E78.2
[2022-04-23] MEDS: aspirin 81 mg Chew Tablet PO (08:26)
[2022-04-23] MEDS: lisinopril 5 mg Tablet PO (08:26)
[2022-04-23] MEDS: metoprolol tartrate 50 mg Tablet PO (08:26)
--- NOTE | 2022-04-23 09:08 | PM.PN ---
Subjective Subjective: Patient is stable. Denies chest pain. Vitals/I&O/Wt Last Vital Signs Temp 98.9 F 04/23/22 07:30 Pulse 70 04/23/22 08:00 Resp 19 H 04/23/22 08:00 BP 141/70 04/23/22 08:00 Pulse Ox 97 04/23/22 08:00 O2 Del Method 04/23/22 08:00 O2 Flow Rate 0.5 04/20/22 08:00 FiO2 3 04/16/22 06:30 04/22/22 04/23/22 04/23/22 22:59 06:59 14:59 Intake Total 220 / 682 Output Total 350 / 550 380 / 930 Balance -130 / 132 -380 / -248 Weight last 48 hrs Weight 219 lb 4.8 oz Weight 218 lb 3.2 oz Physical Exam Narrative: GENERAL: Patient is alert, awake and oriented x3. [] NECK: No jugular vein distension. [] HEART: Regular S1 and S2. No murmur, rub or gallop. [] LUNGS: Clear to auscultate bilaterally. [] ABDOMEN: Soft CENTRAL NERVOUS SYSTEM: Grossly nonfocal. [] EXTREMITIES: Lower extremities with 1+ edema bilaterally. Urinary Catheter Management: [place]: Cath Placed During This Visit: yes, but has since been removed by the nurse Reason for Continuing Indwelling Catheter: Decision to DC Catheter Urinary Catheter Date of Insertion: 04/15/22 Urinary Catheter Time of Insertion: 07:00 Date Urinary Catheter Removed: 04/17/22 Time Urinary Catheter Discontinued: 06:36 Data : 04/23/22 03:34 04/23/22 03:34 A&P Assessment and plan (1) Status post aorto-coronary artery bypass graft: Status: Acute (2) Coronary artery disease due to calcified coronary lesion: Status: Inactive (3) Hypertension: Status: Acute Qualifiers: Hypertension type: essential hypertension Qualified Code(s): I10 - Essential (primary) hypertension (4) Mixed hyperlipidemia: Status: Chronic Plan Patient is stable. Continue aspirin, lisinopril, metoprolol and rosuvastatin. Thank you for involving us with care of this patient. Patient is stable to be discharged from cardiology standpoint. Please call with questions. Attestations Medical Necessity Statement*: Care expected to cross 2 midnights. Coding Level of Care Code Acute [place] Department Supervisor for Kim Fwolga Diagnoses Status post aorto-coronary artery bypass graft Z95.1 Coronary artery disease due to calcified coronary lesion I25.10; I25.84 Hypertension I10 Hypertension type: essential hypertension Mixed hyperlipidemia E78.2
--- NOTE | 2022-04-23 11:49 | PC.NURSE ---
Extensive education given to patient and family at bedside of post CABG care at home. Patient and family had no questions. Walker provided to patient at bedside with education on use. Patient left via wheelchair to personal vehicle with family.
== END 2022-04-23 11:37 | disposition home health service (06) | DRG 236 ==
LOC: ICU 04-16 01:26
PROVIDERS: Family Medicine; Internal Medicine; Internal Medicine Cardiovascular Disease; Admitting Provider Thoracic Surgery (Cardiothoracic Vascular Surgery); PCP Nurse Practitioner; Visit Provider Thoracic Surgery (Cardiothoracic Vascular Surgery)
PROC: 021009W Bypass Coronary Artery, One Artery from Aorta with Autologous Venous Tissue, Open Approach (ICD-10-PCS; principal; 2022-04-15 07:00)
DX: I25.10 Atherosclerotic heart disease of native coronary artery without angina pectoris (principal); D62 Acute posthemorrhagic anemia; J90 Pleural effusion, not elsewhere classified; Z91.038 Other insect allergy status; Z88.0 Allergy status to penicillin; Z91.013 Allergy to seafood; I10 Essential (primary) hypertension; E78.2 Mixed hyperlipidemia; R91.1 Solitary pulmonary nodule; E78.00 Pure hypercholesterolemia, unspecified; Z79.82 Long term (current) use of aspirin
CPT/HCPCS: 36415; 36416; 36430; 36600; 51702; 71045; 80048; 80051; 80053; 80061; 80076; 81003; 82330; 82805; 82947; 82962; 83036; 83735; 84439; 84443; 85025; 85347; 85610; 85730; 86850; 86900; 86920; 87070; 87205; 93005; 93308; 94002; 94003; 94640; 94799; 97110; 97116; 97161; 97167; 97530; 97535; C8924; C9113; J0171; J0360; J1644; J1815; J2250; J2270; J2370; J2440; J2704; J2720; J3010; J3370; J3480; J3490; J7030; J7040; J7050; P9016; P9041; Q9956

== ENCOUNTER → 2022-04-29 10:28 | Outpatient (BNVA) | payer MEDICARE, SELFPAY | PROVIDERS: PCP Nurse Practitioner; Visit Provider Thoracic Surgery (Cardiothoracic Vascular Surgery) | DX: Z98.890 Other specified postprocedural states (principal) | CPT/HCPCS: 99024 ==

== ENCOUNTER → 2022-05-13 13:52 | Outpatient (BNVA) | payer MEDICARE, SELFPAY | PROVIDERS: PCP Nurse Practitioner; Visit Provider Thoracic Surgery (Cardiothoracic Vascular Surgery) | DX: Z98.890 Other specified postprocedural states (principal); Z95.1 Presence of aortocoronary bypass graft | CPT/HCPCS: 99024 ==

== ENCOUNTER → 2022-05-14 09:37 | Outpatient (BNVA) | payer MEDICARE, SELFPAY | PROVIDERS: PCP Nurse Practitioner; Visit Provider Internal Medicine Pulmonary Disease | DX: R91.1 Solitary pulmonary nodule (principal); Z95.1 Presence of aortocoronary bypass graft; R06.09 Other forms of dyspnea; I25.10 Atherosclerotic heart disease of native coronary artery without angina pectoris; Z91.89 Other specified personal risk factors, not elsewhere classified | CPT/HCPCS: 99203; 99204 ==

== ENCOUNTER → 2022-06-12 14:52 | Outpatient (BNVA) | payer MEDICARE, SELFPAY | PROVIDERS: PCP Nurse Practitioner; Visit Provider Thoracic Surgery (Cardiothoracic Vascular Surgery) | DX: R09.89 Other specified symptoms and signs involving the circulatory and respiratory systems (principal); Z95.1 Presence of aortocoronary bypass graft | CPT/HCPCS: 99212 ==

== ENCOUNTER 2022-07-09 06:44 | Outpatient (CLI) | payer MEDICARE, SELFPAY ==
--- NOTE | 2022-07-09 07:15 | USCV_ITS ---
Humza Shelley Age: 81 Gender: M : 1940 Exam Date: 07/09/2022 07:20 Ordering Phys: Angel Mckee MD (Andy) ([email or web address]) Technologist: Luis Felipe Lizarraga Exam Location: [facility] – [place] Indication: claudication Risk Factors: Previous Vascular Surgery: RIGHT LEFT BP: 138.0 / 80.00 BP: 131.0/ 81.00 0 0 Waveform Velocity (cm/s) Velocity (cm/s) Waveform Triphasic 85.0 Iliac Prox 78.6 Triphasic Triphasic 81.3 Iliac Mid 81.3 Triphasic Triphasic 103.5 Iliac Distal 72.7 Triphasic Triphasic 70.3 [place] DOLL WIGS 92.4 Biphasic Biphasic 85.4 SFA Prox 76.1 Biphasic Biphasic 48.7 SFA Mid 64.5 Biphasic Biphasic 49.1 SFA Dist 97.1 Biphasic Monophasic 339.2 POP 105.8 Biphasic Monophasic 22.2 METAL BALER 46.1 Biphasic Monophasic 41.1 DPA 18.7 Monophasic 0.7 SAHIL 1.0 FINDINGS Heavy heterogenous plaques in the right popliteal artery. Mild to moderate diffuse plaquing infrapopliteal vessels on the right side. Mild diffuse plaque in the left iliac and femoral arteries. Moderate diffuse plaque in the dorsalis pedis artery on the left side. Resting SAHIL of 0.7 on the right and 1.0 on the left CONCLUSIONS 1. Abnormal resting SAHIL on the right side, suggestive of moderate peripheral artery disease. Moderate to heavy plaque in the popliteal artery with a Doppler flow velocity elevation, suggestive of greater than 60% stenosis in the popliteal artery. 2. Mild to moderate diffuse plaque in the left infrapopliteal arteries with a normal resting SAHIL of 1.0 suggesting no hemodynamically significant stenosis Dr Deon Patricio MD [facility] (Electronically Signed) Final Date: 11 July 2022 17:43 S
== END 2022-07-09 06:45 | disposition home or self-care (01) ==
LOC: RAD 06:46
PROVIDERS: PCP Nurse Practitioner; Visit Provider Thoracic Surgery (Cardiothoracic Vascular Surgery)
DX: I73.9 Peripheral vascular disease, unspecified (principal); M79.606 Pain in leg, unspecified
CPT/HCPCS: 93925

== ENCOUNTER → 2022-09-08 15:35 | Outpatient (BNVA) | payer MEDICARE, SELFPAY | PROVIDERS: PCP Nurse Practitioner; Visit Provider Internal Medicine | DX: I10 Essential (primary) hypertension (principal); E78.2 Mixed hyperlipidemia; R06.09 Other forms of dyspnea; R94.39 Abnormal result of other cardiovascular function study | CPT/HCPCS: 99214 ==

== ENCOUNTER 2022-09-23 06:10 | Outpatient (CLI) | payer MEDICARE, SELFPAY ==
--- NOTE | 2022-09-23 06:46 | XACV_ITS ---
Ht: 175 cm Wt: 83 kg BSA: 2.03 m2 Any Known Allergies: Other Gender: Male : 1940 Exam Type: Invasive Peripheral Vascular Procedure(s): Procedure Description: Peripheral Cath Diagnostic Procedure Procedure Description: Abdominal aortic angiography Procedure Description: Lower extremities' angiography Exam Priority: Routine Abdominal Diagnostic Findings Distal abdominal aorta: Patent. Lower Extremity Diagnostic Findings INDICATION: Severe Lifestyle limiting claudication. Right lower extremity: Right common iliac artery: Patent. Right external iliac artery: Patent. Right common femoral artery: Patent. Right profunda artery: Patent. Right SFA: Patent. In the distal segment it is totally occluded. Popliteal artery reconstitutes via collaterals. Right popliteal artery: Patent. Right TP segment: Has severe disease. Right anterior tibial artery: Is diffusely diseased with critical blockages and in distal segment has chronic totally occluded vessel. Right peroneal artery: Occluded with distal collaterals. Right PT: Diffuse disease.. Left lower extremity: Left common iliac artery: Patent. Left external iliac artery: Patent. Left common femoral artery: Patent. Left profunda artery: Patent. Left SFA: Patent. Left popliteal artery: Patent. Left TP segment: Patent. Below the knee patient has severe diffuse disease .. Lower Extremity Interventional Findings Procedure detail: After obtaining peripheral angiogram, we decided to perform peripheral intervention of right SFA. Using Glidewire and seeker support catheter we attempted to cross the totally occluded segment. However it was not successful. At this time equipment was removed and patient left the Town Manager in stable condition. 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 Status post unsuccessful attempt at revascularization. Medical therapy. Severe bilateral below the knee diffuse peripheral artery disease. Recommendations Aggressive risk factor modification. We will medically treat PAD with exercise and Cilostazol, if symptoms worsen, can consider referral to vascular surgery for possible bypass. Outpatient cardiology follow-up in 4 weeks. Hemodynamic Data Phase:Rest AO : 145.0 / 52.0 ( 90.0 ) @ 8:01:00 AM 137.0 / 55.0 ( 86.0 ) @ 8:15:00 AM Access Site Site: Left Femoral artery Sheath Size: 6 Fr Hemost... Method: Suture Hemost... Success: Successful Procedure Details Findings Procedure Consent Obtained. Pre-Procedure Time Out. Identified patient by full name and date of as verbalized by the patient/guarantor. Does the consent match the physician's order: Yes. Accurate & Complete Informed Consent: Yes. Inpatient/Outpatient History & Physical on Chart: Yes. If H&P is completed, is and addenduem needed: No; If yes, is the addendum complete: N/A. Visualize and Verify Site with Patient/Guarantor: N/A. Relevant Radiology Images available: N/A. The risks, benefits, and alternatives of sedation and/or procedure were discussed by physician. The patient agrees to continue. Procedure started. Correct patient, site and procedure confirmed by cath team. PERRLA. Strong, equal hand performance instructor bilaterally. Lungs clear x 5 lobes. IV Site on Arrival: 20 gauge in the left forearm. IV Fluids: 0.9% NaCl at 75ml/hr. 0 mL infused prior to forestry laborer. Pre Procedural Pulses: bilateral posterior tibial was Doppled. Pre Procedural Pulses: bilateral dorsalis pedis was Doppled. Pre Procedural Pulses: bilateral radial was 2+. Oxygen started at 2liters/min via nasal canula. bilateral groins was prepped with chloroprep then draped in the usual sterile fashion. Physician notified. Physician arrived. Lidocaine 1% infiltrated to the left groin. Arterial access obtained with micropuncture set. A 5 par[place] UF catheter in over wire. Abdominal aortogram performed in AP @ 10 mL/sec for a total of 30 mL. UF postioned at the bifurcation of the iliacs. Aortagram performed @ 10 mL/sec for a total of 10 mL. Glidewire advanced through UF catheter, seated in right SFA. Catheter removed over the glide wire. Short 6fr sheath exchanged for 6fr 45cm flexor sheath over the glidewire. glide wire out. Right leg selected and arteriogram with runoff performed @ 10 mL/sec for a total of 30 mL. Seeker catheter in over glidewire. Unable to cross lesion in distal sfa, glide wire out. Hand injection through seeker catheter. Glidewire in through seeker catheter. [place] wire out, Hand injection through seeker catheter. Glidewire in through seeker. Glidewire out, hand injection through seeker. Glidewire in through seeker. Glidewire out. Command guidewire 300cm in through seeker catheter. Commandwire advanced to lesion in the distal SFA. Command wire out. Hand injection through seeker, DSA performed of below the popliteal, right leg. Hand injection through seeker , DSA performed of popliteal, right leg. Glidewire in through seeker. Seeker out over the glidewire. 6fr 45cm flexor exchanged for new 6fr short sheath over the glidewire. Sheath injected in Left common femoral artery and runoff performed 10ml/sec for a total of 30ml. A Suture was successful obtaining hemostatsis at the Left Femoral artery insertion site. Sheath(s) sutured into position with 2-0 silk and sterile 4x4's and Op-site applied over the site. No oozing or signs and symptoms of hematoma noted. Arterial sheath flushed and connected to tranducer and pressure bag with heparinized saline. Post Procedure: Pulses reassessed and unchanged. PERRLA. Strong, equal hand performance instructor bilaterally. No VTE prophylaxis required. Medication's Wasted: Heparin = 4000 unit. Medication's Wasted: Other = Fentanyl 50mcg, Versed 1 mg. Total IV fluids: 60 mL. Post-op diagnosis: Severe PAD, Total occlusion of right distal SFA. Complications: None. Estimated blood loss: 5mL-10mL. Responsiveness - Normal response to verbal stimuli; alert and oriented, PERRLA. Airway - Unaffected, no intervention required; spontaneous ventilation. Circulation: W/N/L, pulses unchanged. Nausea/Vomiting: N/A. Procedure completed. Patient transferred by bed to CPRU. Vital chart was stopped. Procedure Medications Start: 7:54 AM Stop: 7:54 AM Medication: Versed Amount: 1 mg Route: I.V. Start: 7:55 AM Stop: 7:55 AM Medication: Fentanyl Amount: 50 mcg Route: I.V. I, the attending physician, have reviewed and verified all procedure medications. Yes, all medications given per verbal order History/Risk Factors Hypertension: Yes Dyslipidemia: Yes Peripheral Arterial Disease (PAD): No Obesity: No Renal Disease: No Tobacco Use: Never Prior Interventions PCI: No CABG: Yes Valve Surgery: No Report Signatures Finalized by Mark Rowland MD on 09/30/2022 09:37 AM
[2022-09-23 07:09] LABS: Basophils # 0.1 10^3/uL (0.0-0.1); Basophils % 0.8 %; Eosinophils # 0.4 10^3/uL (0.0-0.8); Eosinophils % 5.1 %; Hematocrit 49.1 % (42.0-52.0); Hemoglobin 16.1 g/dL (11.7-16.6); Lymphocytes # 1.6 10^3/uL (0.8-4.8); Lymphocytes % 22.4 %; Mean Corpuscular HGB Conc 32.8 g/dL (30.0-36.0); Mean Corpuscular Hemoglobin 28.8 pg (28.0-34.0); Mean Corpuscular Volume 87.7 fl (80-94); Mean Platelet Volume 9.6 fL (7.4-10.4); Monocytes % 13.4 %; Neutrophils # 4.09 10^3/uL (1.8-7.7); Neutrophils % 57.6 %; Nucleated Red Blood Cells % 0 %; Platelet Count 219 10^3/cmm (130-400); Red Cell Distribution Width 14.1 % (12.1-15.1); White Blood Count 7.1 10^3/uL (4.0-10.0)
[2022-09-23] MEDS: diphenhydrAMINE 50 mg Capsule PO (07:11)
[2022-09-23 07:20] VITALS: BMI 27.0
[2022-09-23 07:24] VITALS: BP 159/88; PULSE 50; RESP 18; TEMP 36.6; O2SAT 97
[2022-09-23 07:27] LABS: Anion Gap 14.4 (5-19); Blood Urea Nitrogen 18 mg/dL (8-23); Calcium 10.2 mg/dL (8.5-10.5); Carbon Dioxide 26 mmol/L (22-29); Chloride 105 mmol/L (98-107); Glucose 101 mg/dL (65-115); Osmolality Calculated 294 mOsm/kg (285-295); Potassium 4.4 mmol/L (3.5-5.1); Sodium 141 mmol/L (136-145)
--- NOTE | 2022-09-23 07:37 | W.PM.OPSUD ---
Surgery/Procedure H&P Update DATE OF PROCEDURE: September 23, 2022 DATE H&P PERFORMED: 09/08/22 H&P UPDATE INFORMATION: I have reviewed H&P completed within last 30 days, I have examined patient prior to procedure and No changes to prior documentation PREOP DIAGNOSIS: Severe lifestyle limiting claudication PRIMARY INDICATION FOR PROCEDURE: Severe lifestyle limiting claudication PLANNED PROCEDURE: Operation Date: 09/23/22 07:00 Proposed Procedures p perip angiogram 67521,R09.89(Not Applicable) - Mark Rowland M.D Possible percutaneous intervention PATIENT REASSESSED PRIOR TO SEDATION, WITH NO CHANGE NOTED: Yes PHYSICAL EXAM: alert, oriented x 3, clear to auscultation bilaterally and regular rate & rhythm AIRWAY EVAL/ANESTHESIA PLAN: normal airway, ASA III, Local Anesthesia, Risks, benefits & alternatives of sedation and/or procedure discussed and Patient agrees to continue as planned ADDITIONAL INFORMATION: Moderate sedation
--- NOTE | 2022-09-23 09:00 | SUR.PHASEI ---
POST CATH NOTE Received patient from label machine operator. Status post Peripheral Angiogram of the lower extremities. Patient has a 6 FR sheath in the left common femoral artery- Access patent and hooked to a pressure bag. No hematoma formation noted. VSS. Call light within reach. Family at bedside. Pt Awake and speaking with MD about findings.
--- NOTE | 2022-09-23 09:05 | SUR.PHASEI ---
POST OP FLUIDS Set at 100 ml/hr of 0.9% NS. Infusing without difficulty.
[2022-09-23 09:30] VITALS: BP 137/83; PULSE 48; RESP 15; O2SAT 94
[2022-09-23 10:26] VITALS: BMI 27.3
--- NOTE | 2022-09-23 11:05 | PC.NURSE ---
Pt arrived to floor via stretcher from cath laboratory technician at 0950. No intervention done, no heparin given to pt. Arterial sheath pulled with no difficulty. No hematoma noted. Pt lying at 30 degree angle and instructed to lay on his back and do not move leg. Call light in reach and daughter at bedside. Will cont to monitor.
--- NOTE | 2022-09-23 14:31 | PC.NURSE ---
New one time order per Dr. Rowland for fentanyl 25mcs IVP. Order noted and processed.
[2022-09-23 15:34] VITALS: RESP 14
[2022-09-23] MEDS: fentaNYL 50 mcg/mL INJ 2mL 25 MCG IVP (15:34)
--- NOTE | 2022-09-23 17:43 | PC.NURSE ---
Discharge Note Patient discharged to home via [private vehicle accompanied by family. Discharge instructions reviewed with patient and/or indirect sales representative. Mobile pharmacy medications and/or prescriptions provided. Belongings/home medications returned.
== END 2022-09-23 17:00 | disposition home or self-care (01) ==
LOC: CCL 06:15 → CSU 10:50
PROVIDERS: PCP Nurse Practitioner; Visit Provider Internal Medicine
DX: I70.221 Atherosclerosis of native arteries of extremities with rest pain, right leg (principal); I70.92 Chronic total occlusion of artery of the extremities; I10 Essential (primary) hypertension; E78.5 Hyperlipidemia, unspecified; Z95.1 Presence of aortocoronary bypass graft; E78.2 Mixed hyperlipidemia
CPT/HCPCS: 36415; 75625; 75716; 80048; 85025; 96361; 96365; 99152; 99153; C1769; C1887; C1894; J1644; J2250; J3010; J7030; Q0163; Q9967

== ENCOUNTER → 2022-10-01 09:19 | Outpatient (BNVA) | payer MEDICARE, SELFPAY | PROVIDERS: PCP Nurse Practitioner; Visit Provider Nurse Practitioner Family | DX: I73.9 Peripheral vascular disease, unspecified (principal); Z79.82 Long term (current) use of aspirin | CPT/HCPCS: 36415; 80048; 99214 ==

== ENCOUNTER → 2022-12-22 13:04 | Outpatient (BNVA) | payer MEDICARE, SELFPAY | PROVIDERS: PCP Nurse Practitioner; Visit Provider Nurse Practitioner Family | DX: I73.9 Peripheral vascular disease, unspecified (principal); I10 Essential (primary) hypertension; I25.10 Atherosclerotic heart disease of native coronary artery without angina pectoris; I25.84 Coronary atherosclerosis due to calcified coronary lesion | CPT/HCPCS: 99214 ==

== ENCOUNTER → 2023-01-05 13:13 | Outpatient (BNVA) | payer MEDICARE, SELFPAY | PROVIDERS: PCP Nurse Practitioner; Visit Provider Nurse Practitioner Family | DX: I25.10 Atherosclerotic heart disease of native coronary artery without angina pectoris (principal); I25.84 Coronary atherosclerosis due to calcified coronary lesion; I73.9 Peripheral vascular disease, unspecified; I10 Essential (primary) hypertension | CPT/HCPCS: 99214 ==

== ENCOUNTER 2023-01-12 10:05 | Outpatient (CLI) | payer MEDICARE, SELFPAY ==
--- NOTE | 2023-01-12 10:15 | USCV_ITS ---
Huzma Shelley Age: 82 Gender: M : 1940 Exam Date: 01/12/2023 10:37 Ordering Phys: Marck Amaya Technologist: Luis Felipe Lizarraga Exam Location: [facility] – [place]_ Indication: localized edema PROCEDURES: Venous duplex imaging was performed in only the left lower extremity. The following venous structures were evaluated: common femoral vein, profunda vein, proximal portion of the greater saphenous vein, superficial femoral vein, and the popliteal vein. In addition, the posterior tibial and peroneal trunk were evaluated. Serial compression, augmentation maneuvers, and spectral Doppler flow evaluation were performed. FINDINGS: Normal 2-D Doppler and augmentation and compressibility throughout the lower extremity venous structures. Additional imaging through the proximal calf veins also reveals no thrombus. Limited evaluation of the greater saphenous vein is patent with no thrombus. CONCLUSIONS No DVT left lower extremity. Dr. Maya Brown DO (Electronically Signed) Final Date: 12 January 2023 11:21 S
== END 2023-01-12 10:06 | disposition home or self-care (01) ==
PROVIDERS: PCP Nurse Practitioner; Visit Provider Nurse Practitioner
DX: R60.0 Localized edema (principal); M79.89 Other specified soft tissue disorders
CPT/HCPCS: 93971

== ENCOUNTER → 2023-05-06 12:58 | Outpatient (BNVA) | payer MEDICARE, SELFPAY | PROVIDERS: PCP Nurse Practitioner; Visit Provider Internal Medicine Cardiovascular Disease | DX: I25.10 Atherosclerotic heart disease of native coronary artery without angina pectoris (principal); I25.84 Coronary atherosclerosis due to calcified coronary lesion; I73.9 Peripheral vascular disease, unspecified; Z95.1 Presence of aortocoronary bypass graft; I10 Essential (primary) hypertension; E78.2 Mixed hyperlipidemia | CPT/HCPCS: 99213 ==

== ENCOUNTER 2023-08-01 18:27 | Emergency (ER) | payer MEDICARE, SELFPAY ==
--- NOTE | 2023-08-01 18:29 | XRR_ITS ---
PROCEDURE INFORMATION: Exam: XR Chest Exam date and time: 08/01/2023 8:15 PM Age: 82 years old Clinical indication: Cough TECHNIQUE: Imaging protocol: Radiologic exam of the chest. Views: 1 view. COMPARISON: CR XR chest 1V portable [id number] 04/20/2022 2:14 PM FINDINGS: Lungs: No consolidation. Pleural spaces: No large pleural effusion. No pneumothorax. Heart/Mediastinum: Unremarkable cardiomediastinal silhouette. Sequela of CABG. Bones/joints: No acute abnormality. XR/XR chest 1V portable [id number] IMPRESSION: No acute findings.
[2023-08-01 18:48] VITALS: BP 150/80; PULSE 63; RESP 18; TEMP 36.8; O2SAT 93; BMI 28.0
[2023-08-01 19:29] LABS: Influenza A by IFA negative (Negative); Influenza B by IFA negative (Negative); SARS Covid-2 Antigen negative (Negative)
--- NOTE | 2023-08-01 20:26 | ED_ITS ---
HPI - URI/Sore Throat General: Chief Complaint: Upper Respiratory Infection Stated Complaint: cough Time Seen by Provider: 08/01/23 20:10 History of Present Illness: 82-year-old male patient comes in today with persistent cough for the last 2 days. Patient has had exposure to RSV. Patient appears nontoxic. Patient has no cough and is able to speak full sentences. Patient denies any chronic lung problems. Patient has coronary artery disease. Patient denies diabetes. Patient has hypertension. Associated symptoms: Deny diarrhea, nausea or vomiting Review of Systems General: Reports: 10 or more systems reviewed and unremarkable except in HPI and below ENMT: Reports: throat pain Resp: Reports: dyspnea and non-productive cough GI: Denies: nausea, vomiting, diarrhea or constipation PFSH ED PFSH: Medical History Coronary artery disease due to calcified coronary lesion Hx of bee sting allergy Hypertension Mixed hyperlipidemia Peripheral arterial disease Solid nodule of lung 6 mm to 8 mm in diameter Stable 7 mm nodule or lymph node within the right epipericardial fat December 2017 Surgical History History of lipoma Removal back and neck Family History Sister Cancer breast Other CVA (cerebrovascular accident due to intracerebral hemorrhage) Heart disease Denies family history of Bleeding disorder Social History Smoking and tobacco/nicotine status: never used tobacco/nicotine Second hand smoke exposure: No Alcohol intake: never Substance/Drug Use: never Caregiver/support person: No Lives independently: Yes Household members: family Housing: House Marital status: service: No Current occupational status: employed Do you think of yourself as: Straight/Heterosexual Current gender identity: Male Physical Exam Const: COMMON NORMALS: alert HENMT: COMMON NORMALS: normocephalic HEAD & SCALP: normocephalic THROAT: posterior oropharynx normal Neck/C-Spine: COMMON NORMALS: no meningeal signs Resp: COMMON NORMALS: normal respiratory effort AUSCULTATION: wheezes Cardio: COMMON NORMALS: regular rate and regular rhythm RATE: regular rate RHYTHM: regular rhythm GI: COMMON NORMALS: Soft to palpation and non-tender PALPATION: Yes Soft to palpation Back/Pelvis: COMMON NORMALS: thoracic and lumbar spine normal to inspection Extremity: COMMON NORMALS: no pedal edema Neuro: SENSORIUM/ORIENTATION: Yes alert MENINGEAL SIGNS: Yes no meningeal signs Skin: COMMON NORMALS: turgor normal GENERAL SKIN EXAM: turgor normal Course 2 Vital Signs: Vital signs: Vital Signs Temperature 98.2 F 08/01/23 18:48 Pulse Rate 62 08/01/23 20:56 Respiratory Rate 16 08/01/23 20:56 Blood Pressure 150/80 08/01/23 18:48 Pulse Oximetry 95 08/01/23 20:56 Oxygen Delivery Me thod Room Air 08/01/23 20:56 MDM - URI/Sore Throat Medical Decision Making 82-year-old male patient presents today with cough and congestion for last 2 days. On exam patient has wheezing in lung lara. Skin is warm and dry. Vital signs are normal except for some elevated blood pressure. Differential diagnosis includes but not limited to viral syndrome, upper respiratory infection, pneumonia, influenza, COVID, RSV. Chest x-ray was unremarkable. Patient was negative for influenza and COVID. Patient most likely has a lower respiratory infection secondary to RSV. Will go ahead and start him on some doxycycline and given a dose of steroid and continue him on both. Patient was also given an inhaler to help with the wheezing. Patient had improvement of symptoms and was discharged home in stable condition. Lab Data Laboratory Results Influenza Type A Ag negative (Negative) 08/01/23 18:55 Influenza Type B Ag negative (Negative) 08/01/23 18:55 SARS-CoV-2 Ag (Rapid) negative (Negative) 08/01/23 18:55 XR interpretation done by ED provider, pending radiology final review Discharge Plan Discharge Patient Disposition: Home Clinical Impression: Bronchitis Condition: Stable Prescriptions: New doxycycline hyclate 100 mg capsule 100 mg PO BID 7 Days Qty: 14 0RF prednisone 20 mg tablet 20 mg PO BID 5 Days Qty: 10 0RF albuterol sulfate 90 mcg/actuation HFA aerosol inhaler 2 inh inhalation Q4H PRN (Reason: shortness of breath or wheezing) Qty: 16 0RF No Action nitroglycerin 0.4 mg tablet, sublingual 0.4 mg sublingual Q5M PRN (Reason: chest pain) Qty: 25 0RF Rx Instructions: do not exceed 3 doses per episode aspirin [Adult Low Dose Aspirin] 81 mg tablet,delayed release (DR/EC) 81 mg PO DAILY Qty: 90 3RF magnesium oxide 500 mg tablet 500 mg PO DAILY cilostazol 50 mg tablet 50 mg PO BID Qty: 180 3RF lisinopril 5 mg tablet 10 mg PO DAILY Qty: 180 3RF rosuvastatin 20 mg tablet 20 mg PO DAILY Qty: 90 3RF metoprolol tartrate 50 mg tablet 50 mg PO BID@0900,2100 Qty: 120 2RF amlodipine 5 mg tablet 2.5 mg PO DAILY Qty: 45 3RF Hold Instructions: Doctor's Order Discharge Orders: Discharge ED (Routine); Ordered 08/01/23 Ordered By: Angel Acosta Referrals: Marck Amaya, LICENSED NURSING ASSISTANTAbbyC [Primary Care Provider] - Discharge Diet: Usual diet Discharge Activity: Increase activity as tolerated Patient Instructions: Bronchitis (Acute) - Adult, RSV (Respiratory Syncytial Virus) Infection (ED) Activity Restrictions/Additional Instructions: Drink plenty of water and fluids. Take medications as directed. Follow-up with primary care in 3 to 5 days for recheck. Return to ED for worsening symptoms such as increased shortness of breath, inability to hold fluids down, or new concerns. Coding Level of Care Code ED Process Inspector for Kim Wright
[2023-08-01] MEDS: doxycycline 100 mg Tablet PO (20:45)
[2023-08-01] MEDS: dexamethasone 10 mg/mL INJ IM (20:47)
[2023-08-01] MEDS: albuterol 8 gm MDI 2 PUFF INHALATION (20:55)
[2023-08-01 20:56] VITALS: PULSE 62; RESP 16; O2SAT 95
[2023-08-01 20:58] VITALS: BP 185/92; PULSE 56; O2SAT 95
== END 2023-08-01 21:00 | disposition home or self-care (01) ==
PROVIDERS: Emergency Medicine; Emergency Provider Nurse Practitioner Family; PCP Nurse Practitioner
DX: J40 Bronchitis, not specified as acute or chronic (principal); Z11.52 Encounter for screening for COVID-19; Z79.82 Long term (current) use of aspirin; I25.10 Atherosclerotic heart disease of native coronary artery without angina pectoris; I10 Essential (primary) hypertension; E78.2 Mixed hyperlipidemia
CPT/HCPCS: 36415; 71045; 87426; 87804; 94640; 96372; 99284; J1100; J3535

== ENCOUNTER 2023-10-08 06:52 | Outpatient (CLI) | payer MEDICARE, SELFPAY ==
--- NOTE | 2023-10-08 07:15 | USCV_ITS ---
Humza Shelley Age: 82 Gender: M : 1940 Exam Date: 10/08/2023 07:42 Ordering Phys: Marck Amaya Technologist: SHEA [place] [facility] [place]: HTN BP: 167 / 81 HR: 54 Rhythm: Sinus Technical Quality: Adequate MEASUREMENTS (Male / Female) Normal Values 2D ECHO LV Diastolic Diameter PLAX 5.0 cm 4.2 - 5.9 / 3.9 - 5.3 cm IVS Diastolic Thickness 0.7 cm 0.6 - 1.0 / 0.6 - 0.9 cm IVS Systolic Thickness 1.3 cm LVPW Diastolic Thickness 1.5 cm 0.6 - 1.0 / 0.6 - 0.9 cm LVPW Systolic Thickness 2.5 cm LVOT Diameter 2.0 cm LV Ejection Fraction 2D Teich 76.3 % LV Ejection Fraction MOD 2C 47.7 % LV Ejection Fraction 2C AL 48.6 % LA Diameter 4.1 cm RA Systolic Volume 4C AL 48.3 ml RA Systolic Volume 4C MOD 45.0 ml Aorta at Sinotubular Diameter 2.7 cm M-MODE LA Ao Ratio MM 1.3 AV Cusp Separation MM 1.1 cm DOPPLER AV Peak Velocity 250.5 cm/s LVOT Peak Velocity 104.0 cm/s AV Area Cont Eq vti 1.9 cm squared AV Area Cont Eq pk 1.3 cm squared MV Peak Velocity 88.0 cm/s MV Area PHT 2.1 cm squared Mitral E to A Ratio 0.7 TR Peak Velocity 243.0 cm/s TR Peak Gradient 23.6 mmHg TR Mean Velocity 181.0 cm/s TR Mean Gradient 14.5 mmHg TR Velocity Time Integral 82.6 cm PV Peak Velocity 91.0 cm/s RV Ejection Time 0.3 s FINDINGS Left Ventricle Left ventricle is normal in size. LV systolic function is normal with EF of 55 to 60%. No regional wall motion abnormalities are seen. Grade 1 diastolic dysfunction Right Ventricle Normal in size and function Right Atrium Normal in size Left Atrium Normal in size Mitral Valve Structurally normal mitral valve. Mild mitral regurgitation. Aortic Valve Aortic valve is thickened. Mild aortic regurgitation. No significant stenosis. Mild aortic stenosis with aortic valve area of 1.9 cm squared and mean gradient of 9.6 mmHg. Tricuspid Valve Mild tricuspid regurgitation. Insufficient TR jet to calculate RVSP. Pulmonic Valve Not well visualized Pericardium Normal Aorta Normal in size IVC Not well visualized CONCLUSIONS LV systolic function is normal with EF of 55 to 60%. Grade 1 diastolic dysfunction. Mild mitral regurgitation. Mild aortic regurgitation. Mild aortic stenosis. Mild tricuspid regurgitation. Accurate comparison with prior echocardiograms not possible because of limited visualization. Makr Rowland MD (Electronically Signed) Final Date: 22 October 2023 12:28 S
== END 2023-10-08 06:53 | disposition home or self-care (01) ==
LOC: RAD 06:52
PROVIDERS: PCP Nurse Practitioner; Visit Provider Nurse Practitioner
DX: I08.3 Combined rheumatic disorders of mitral, aortic and tricuspid valves (principal); I25.10 Atherosclerotic heart disease of native coronary artery without angina pectoris; I25.84 Coronary atherosclerosis due to calcified coronary lesion
CPT/HCPCS: 93306

== ENCOUNTER → 2023-10-26 09:08 | Outpatient (BNVA) | payer MEDICARE, SELFPAY | PROVIDERS: PCP Nurse Practitioner; Visit Provider Nurse Practitioner Family | DX: I10 Essential (primary) hypertension (principal); I25.10 Atherosclerotic heart disease of native coronary artery without angina pectoris; I25.84 Coronary atherosclerosis due to calcified coronary lesion | CPT/HCPCS: 99214 ==

== ENCOUNTER 2023-12-11 13:09 | Outpatient (CLI) | payer MEDICARE, SELFPAY ==
--- NOTE | 2023-12-11 13:30 | CTR_ITS ---
PROCEDURE INFORMATION: Exam: CT Chest Without Contrast; Diagnostic Exam date and time: 12/11/2023 2:02 PM Age: 82 years old Clinical indication: Abnormal findings; Lung mass or nodule; Single or solitary nodule; Patient HX: Cabg 03/24; Additional info: R91.1 - solitary pulmonary nodule TECHNIQUE: Imaging protocol: Diagnostic computed tomography of the chest without contrast. Radiation optimization: All CT scans at this facility use at least one of these dose optimization techniques: automated exposure control; mA and/or kV adjustment per patient size (includes targeted exams where dose is matched to clinical indication); or iterative reconstruction. COMPARISON: CT chest w con* [id number] 02/19/2022 8:11 AM RADIATION DOSE METRICS: Total DLP (mGy-cm): 358.04 FINDINGS: Thyroid: The thyroid gland is normal. Trachea: The airways are patent. Lungs: Chronic scarring and atelectasis in the right middle lobe and lingula.There are multiple punctate pulmonary parenchymal calcifications, consistent with remote granulomatous organism exposure. Bilateral apical capping/scarring. No acute interstitial or airspace disease. There are no concerning pulmonary nodules. Pleural spaces: No pleural effusions or pneumothorax. Heart: There is calcification of the aortic valve annulus. Heart is of normal size and morphology. Subendocardial fat deposition at the interventricular septum, as can be seen with sequela of prior myocardial infarction. No pericardial thickening or effusion. 7 mm right pericardial fat nodule is stable. Coronary arteries: There is moderate atherosclerotic calcification of the coronary arteries. Mediastinal space: Scattered calcified granulomas throughout the mediastinum are benign. Calcified hilar granulomas are benign. Lymph nodes: No concerning mediastinal, hilar, or axillary adenopathy by CT size criteria. Vasculature: There is ectasia of the mid ascending thoracic aorta measuring 42 mm. The aorta demonstrates moderate atherosclerotic calcification. Liver: Scattered hypodense subcentimeter liver lesions are too small to characterize but most probably benign representing small cysts or hemangiomas. These are stable from the reference exam. Gallbladder and bile ducts: The gallbladder is contracted. Spleen: The spleen demonstrates punctate calcifications, consistent with remote granulomatous organism exposure. Stomach and bowel: The visualized intra-abdominal structures demonstrate no acute findings. Bones/joints: Sternotomy wires and mediastinal surgical clips are present, consistent with previous coronary arterial bypass grafting. Moderate multilevel degenerative changes of the spine, as manifested by multilevel anterior osteophytes and multilevel decrease in intervertebral disc space. No acute fracture, dislocation, or aggressive osseous lesion. Soft tissues: No acute body wall soft tissue findings. CT/CT chest con [id number] IMPRESSION: 1. Stable chest since 02/19/2022. 2. No acute chest pathology.
== END 2023-12-11 13:10 | disposition home or self-care (01) ==
LOC: RAD 13:09
PROVIDERS: PCP Nurse Practitioner; Visit Provider Nurse Practitioner
DX: R91.1 Solitary pulmonary nodule (principal)
CPT/HCPCS: 71250

== ENCOUNTER → 2023-12-30 11:05 | Outpatient (BNVA) | payer MEDICARE, SELFPAY | PROVIDERS: PCP Nurse Practitioner; Visit Provider Nurse Practitioner | DX: I10 Essential (primary) hypertension (principal); J98.01 Acute bronchospasm; Z95.1 Presence of aortocoronary bypass graft; E78.2 Mixed hyperlipidemia; R91.1 Solitary pulmonary nodule; I73.9 Peripheral vascular disease, unspecified; E55.9 Vitamin D deficiency, unspecified; Z79.899 Other long term (current) drug therapy | CPT/HCPCS: 80053; 80061; 82306; 82607; 84443; 85025 ==

== ENCOUNTER → 2024-05-04 12:46 | Outpatient (BNVA) | payer MEDICARE, SELFPAY | PROVIDERS: PCP Nurse Practitioner; Visit Provider Internal Medicine | DX: I25.10 Atherosclerotic heart disease of native coronary artery without angina pectoris (principal); I25.84 Coronary atherosclerosis due to calcified coronary lesion; I73.9 Peripheral vascular disease, unspecified; Z95.1 Presence of aortocoronary bypass graft; I10 Essential (primary) hypertension; E78.2 Mixed hyperlipidemia | CPT/HCPCS: 99214 ==

== ENCOUNTER → 2024-05-25 10:47 | Outpatient (BNVA) | payer MEDICARE, SELFPAY | PROVIDERS: PCP Nurse Practitioner; Visit Provider Nurse Practitioner | DX: I10 Essential (primary) hypertension (principal); E55.9 Vitamin D deficiency, unspecified | CPT/HCPCS: 80053; 80061; 82306 ==

== ENCOUNTER → 2024-11-18 09:16 | Outpatient (BNVA) | payer MEDICARE, SELFPAY | PROVIDERS: PCP Nurse Practitioner; Visit Provider Nurse Practitioner Family | DX: I73.9 Peripheral vascular disease, unspecified (principal); I10 Essential (primary) hypertension; E78.5 Hyperlipidemia, unspecified; Z95.1 Presence of aortocoronary bypass graft; Z79.82 Long term (current) use of aspirin | CPT/HCPCS: 99214 ==

== ENCOUNTER → 2024-12-29 09:46 | Outpatient (BNVA) | payer MEDICARE, SELFPAY | PROVIDERS: PCP Nurse Practitioner; Visit Provider Nurse Practitioner | DX: I10 Essential (primary) hypertension (principal) | CPT/HCPCS: 80053; 80061; 85025 ==

== ENCOUNTER → 2025-02-14 08:22 | Outpatient (BNVA) | payer MEDICARE, SELFPAY | PROVIDERS: PCP Nurse Practitioner; Visit Provider Nurse Practitioner Family | DX: D17.0 Benign lipomatous neoplasm of skin and subcutaneous tissue of head, face and neck (principal); L81.4 Other melanin hyperpigmentation; L73.8 Other specified follicular disorders; L90.5 Scar conditions and fibrosis of skin; L57.8 Other skin changes due to chronic exposure to nonionizing radiation; X32.XXXA Exposure to sunlight, initial encounter; D18.01 Hemangioma of skin and subcutaneous tissue; L91.8 Other hypertrophic disorders of the skin; L82.1 Other seborrheic keratosis; D48.5 Neoplasm of uncertain behavior of skin; L57.0 Actinic keratosis | CPT/HCPCS: 11102; 17000; 99203 ==

== ENCOUNTER 2025-02-20 09:57 | Outpatient (CLI) | payer MEDICARE, SELFPAY ==
--- NOTE | 2025-02-20 10:09 | XRR_ITS ---
PROCEDURE INFORMATION: Exam: XR Lumbosacral Spine Exam date and time: 02/20/2025 10:14 AM Age: 84 years old Clinical indication: Low back pain; X2 months right hip and lower back pain, no specific injury; Additional info: M25.551 - pain in right hip TECHNIQUE: Imaging protocol: Radiologic exam of the lumbosacral spine. Views: 2 or 3 views. COMPARISON: CR XR lumbar spine 2-3V* [id number] 01/10/2019 10:28 AM FINDINGS: Bones/joints: Similar grade 1 anterolisthesis at L5-S1. No acute fracture. Vertebral body heights are maintained. Facet arthropathy at L4-L5 and L5-S1. Mild multilevel lumbar spondylosis, slightly progressed from prior. Soft tissues: Unremarkable. XR/XR lumbar spine 2-3V* [id number] IMPRESSION: No acute findings.
--- NOTE | 2025-02-20 10:09 | XRR_ITS ---
PROCEDURE INFORMATION: Exam: XR Right Hip Exam date and time: 02/20/2025 10:14 AM Age: 84 years old Clinical indication: Hip pain; X2 months right hip and lower back pain, no specific injury; Additional info: M25.551 - pain in right hip TECHNIQUE: Imaging protocol: Radiologic exam of the right hip. Views: 1 view hip with pelvis when performed. COMPARISON: CR XR hip RT 2-3V wo/w pel* [id number] 01/10/2019 10:28 AM FINDINGS: Bones/joints: No acute fracture or dislocation. Mild degenerative changes of the hip, similar to prior. Soft tissues: Unremarkable. XR/XR hip RT 2-3V wo/w pel* [id number] IMPRESSION: No acute osseous findings.
== END 2025-02-20 09:58 | disposition home or self-care (01) ==
PROVIDERS: PCP Nurse Practitioner; Visit Provider Clinical Nurse Specialist Adult Health
DX: M25.551 Pain in right hip (principal); M54.16 Radiculopathy, lumbar region; M43.16 Spondylolisthesis, lumbar region; M46.96 Unspecified inflammatory spondylopathy, lumbar region; M47.817 Spondylosis without myelopathy or radiculopathy, lumbosacral region; M47.816 Spondylosis without myelopathy or radiculopathy, lumbar region; M16.11 Unilateral primary osteoarthritis, right hip
CPT/HCPCS: 72100; 73502

== ENCOUNTER → 2025-03-07 07:50 | Outpatient (BNVA) | payer MEDICARE, SELFPAY | PROVIDERS: PCP Nurse Practitioner; Visit Provider Dermatology | DX: D22.39 Melanocytic nevi of other parts of face (principal); L82.1 Other seborrheic keratosis; C44.319 Basal cell carcinoma of skin of other parts of face | CPT/HCPCS: 13132; 17311; 99213 ==

== ENCOUNTER → 2025-06-22 09:36 | Outpatient (BNVA) | payer MEDICARE, SELFPAY | PROVIDERS: PCP Nurse Practitioner; Visit Provider Nurse Practitioner | DX: M54.16 Radiculopathy, lumbar region (principal); I10 Essential (primary) hypertension | CPT/HCPCS: 80053; 80061; 84443 ==